=== PATIENT | female | born 1940 | race Caucasian/White ===

== ENCOUNTER → 2016-10-27 | Outpatient (CLI) | payer OTHER ==
[~2016-10-27] MED LIST: /FEXO18TA; /WARF25TA; ACET500C PO; ACET65TA; ALRE0.5S OU; ATOR1TAB19 PO; ATOR40TA PO; BIOT50004 PO; BIOTCAP PO; BUSP1TAB PO; CALC600T10; CALC600T7 PO; CINN500T PO; ESTR62CR PV; FISH1000; FLON0.05; FLON0.054; GABA-279 PO; GARL10CA2 PO; GLUCTAB6 PO; LANS30CA PO; LEVO25TA5 PO; LEVO25TABR; LUTECAP3 PO; MAGN250T9 PO; MELOPOW; MOBI7.5T10 PO; MULTIVIT; NEXI40CA PO; PERC5TAB8; PRAV40TA; PRIL20CA; SERT25TA85 PO; SYST1SOL OU; VITA100041 PO; VITAMIN D50000 UNT; VOLT1GEL24 TD
--- NOTE | 2016-10-28 01:26 | ECWPNPC ---
PATIENT NAME: KAMALA REEDER : 1940 GENDER: FEMALE VISIT DATE: 10/27/2016 DISCHARGE DATE: 10/27/16 1149 VISIT LOCKED DATE TIME: PHYSICIAN: KAYLYNN ELDRIDGE RESOURCE: KAYLYNN ELDRIDGE REASON FOR APPOINTMENT 1. BACK-POST PROCEDURE HISTORY OF PRESENT ILLNESS HISTORY OF PRESENT ILLNESS: PAIN THE PATIENT DESCRIBES THE PAIN... FALL RISK SCREENING: SCREENING :NO FALLS IN THE PAST YEAR TODAY'S VISIT: NOTES: S/P TPI 09/29/16 WITH EXCELLANT RELIEF OF PAINFOR FIRST FEW WEEKS.REPORTS TENDERNESS OVER BASE OF NECK AND ACROSS THE SACRUM. RATES PAIN LEVEL TODAY 0-3/10 WITH SOME ACHINESS RETURNING PARTICULARLY IN THE KNEES AND ANKLES. HAS BEEN ABLE TO GO ABOUT ACTIVITIES OF DAILY LIVING.. CURRENT MEDICATIONS TAKING CINNAMON 500 MG CAPSULE 1 CAP ORALLY DAILY TAKING GLUCOSAMINE CHONDR 500 COMPLEX CAPSULE 1 CAP ORALLY TWICE A DAY TAKING SYSTANE 0.4-0.3 % SOLUTION 1 DROP INTO AFFECTED EYE NEEDED OPHTHALMIC 2-3 TIMES DAILY TAKING LUTEIN 6 MG CAPSULE 1 CAPSULE WITH A MEAL ORALLY ONCE A DAY TAKING CORTISPORIN OTIC 1%-0.35%-1000 UNITS/ML SUSPENSION 2-5 DROPS INTO RIGHT EAR TWICE A DAY NEEDED, NOTES: NONE RECENTLY TAKING TYLENOL ARTHRITIS PAIN 650 MG TABLET EXTENDED RELEASE 1 TABLETS NEEDED ORALLY EVERY 8 HRS TAKING GABAPENTIN 100 MG CAPSULE 2 CAPSULES ORALLY THREE TIMES PER DAY TAKING SYNTHROID 25 MCG TABLET 1 TABLET EVERY MORNING ON AN EMPTY STOMACH ORALLY ONCE A DAY TAKING ATORVASTATIN CALCIUM 10 MG TABLET 1 TABLET ORALLY ONCE A DAY TAKING SERTRALINE HCL 50 MG TABLET 1 TABLET ORALLY ONCE A DAY TAKING JENIFER 180 MG TABLET 1 TABLET ORALLY ONCE A DAY NEEDED TAKING FLONASE 50 MCG/ACT SUSPENSION 1-2 SPRAYS IN EACH NOSTRIL NASALLY ONCE A DAY TAKING NEXIUM 40 MG CAPSULE DELAYED RELEASE 1 CAPSULE ORALLY LA ONCE A DAY, NOTES: 09/29/16 0700 TAKING CALCIUM 600 + D 600-400 MG-UNIT TABLET 1 TABLET ORALLY BID, NOTES: 09/28/16 1700 TAKING VITAMIN D 1000 UNIT TABLET 1 TABLET ORALLY ONCE A DAY, NOTES: 09/28/16 0900 TAKING VOLTAREN 1 % GEL 4GM EXTERNALLY Q8H PRN TO LOW BACK, NOTES: PAIN CLINIC 09/28/16 UNSURE OF TIME NOT-TAKING ALREX 0.2 % SUSPENSION 1 DROP INTO AFFECTED EYE OPHTHALMIC DAILY NOT-TAKING ALBUTEROL SULFATE HFA 108 (90 BASE) MCG/ACT AEROSOL SOLUTION 2 PUFFS NEEDED INHALATION EVERY 4 HRS, NOTES: NONE RECENTLY NOT-TAKING GARLIC 300 MG TABLET 1 TAB ORALLY DAILY NOT-TAKING OMEGA 3 1000 MG CAPSULE 1 CAP ORALLY ONCE DAILY NOT-TAKING ACETAMINOPHEN 500 MG CAPSULE 2 CAPSULES ORALLY EVERY 8 HRS NEEDED FOR PAIN MDD 6 CAPS NOT-TAKING SALINE NASAL SPRAY 0.65 % SOLUTION 2 SPRAYS IN EACH NOSTRIL NEEDED NASALLY EVERY 4 HRS NEEDED MEDICATION LIST REVIEWED AND RECONCILED WITH THE PATIENT PAST MEDICAL HISTORY HYPOTHYROIDISM HYPERLIPIDEMIA OSTEOARTHRITIS ALLERGIC RHINITIS ESOPHAGEAL REFLUX DRY EYES ANXIETY TINNITUS - EVALUATED AT AUDIOLOGY AND ENT ALLERGIC RHINITIS OSTEOPENIA - SPINE, DEXA 2011 ALLERGIES N.K.D.A. SOCIAL HISTORY TOBACCO USE ARE YOU A:NONSMOKER LEARNING BARRIERS / SPECIAL NEEDS ORIENTED TO PLAN OF CARE: PATIENT, PAIN MANAGEMENT PATIENT, ORIENTED TO PLAN OF CARE: PATIENT, PAIN MANAGEMENT PATIENT. NEW PATIENT PAIN DIARY TODAY'S VISITNOTES FROM 0-10, WHAT LEVEL IS YOUR PAIN TODAY?0 PAIN CLINIC PFS, CLERGY, PUBLIC HEALTH REFERRALS PFS REFERRAL NEEDED?NO CLERGY REFERRAL NEEDED?NO PUBLIC HEALTH REFERRAL NEEDED?NO WAS THE PROVIDER NOTIFIED OF ANY PERTINENT INFO?NO PFS REFERRAL NEEDED?NO CLERGY REFERRAL NEEDED?NO PUBLIC HEALTH REFERRAL NEEDED?NO WAS THE PROVIDER NOTIFIED OF ANY PERTINENT INFO?NO REVIEW OF SYSTEMS CONSTITUTIONAL: ANY CHANGE IN YOUR MEDICAL CONDITION? NO . CHILLS NO . FEVER NO . INFECTION: DO YOU HAVE NEW INFECTIONS? NO . DO YOU HAVE HISTORY OF MRSA? NO . MUSCULOSKELETAL: ANY NEW PATTERNS OF PAIN OR NUMBNESS? NO . GASTROENTEROLOGY: ANY NEW CHANGE IN BOWEL CONTROL? NO . GENITOURINARY: ANY NEW CHANGE IN BLADDER CONTROL? NO . IS THERE A CHANCE YOU COULD BE ? NO . HEMATOLOGY/LYMPH: DO YOU TAKE ANY BLOOD THINNERS? (FOR EXAMPLE- COUMADIN, PLAVIX, AGGRENOX, PLATEL, PRADAXA, OR XARELTO) NO . WHEN WAS YOUR LAST DOSE? DATE: TIME: . NEUROLOGY: HAVE YOU FALLEN IN THE PAST 6 MONTHS? NO . ANY NEW EXTREMITY NUMBNESS OR WEAKNESS? NO . CARDIOLOGY: DO YOU HAVE A PACEMAKER OR DEFIBRILLATOR? NO . RESPIRATORY: SLEEP APNEA PRONOUNCED SNORING. . HAVE YOU BEEN SICK IN THE PAST WEEK? NO . FEVER NO . FLU LIKE SYMPTOMS? NO . COUGH DRY NONPRODUCTIVE COUGH . INTEGUMENTARY: DO YOU HAVE ANY RASHES OR OPEN SORES? NO . ALLERGIC/IMMUNO: ARE YOU ALLERGIC TO SHELLFISH OR IV DYE? NO . ANY NEW ALLERGIES? NO . PSYCHIATRIC: DO YOU HAVE THOUGHTS OF HURTING YOURSELF OR SOMEONE ELSE? NO . ARE YOU ABUSED, NEGLECTED, OR IN AN UNSAFE ENVIRONMENT? NO . ENDOCRINOLOGY: ARE YOU DIABETIC? NO . OTHER: DO YOU NEED ANY PRESCRIPTIONS? YES GABEPENTIN . IF YES, PLEASE LIST: ____ . ANY NEW PROBLEMS WITH YOUR MEDICATIONS? NO . WHEN DID YOU LAST EAT? ____ . WHEN DID YOU LAST DRINK? ____ . WHAT DID YOU LAST DRINK? ____ . NAME OF PERSON DRIVING YOU HOME? ____ . DO YOU HAVE ANY OTHER QUESTIONS OR CONCERNS NO . REVIEWED BY: PROVIDER: KAYLYNN REES . VITAL SIGNS WT 162 LBS, HT 62 1/4, BMI 29.39 INDEX, BP 151/81 MM HG, HR 72 /MIN, RR 16 /MIN, TEMP 97.9 F, OXYGEN SAT % 99%, NA INITIALS SC 11:16. EXAMINATION GENERAL EXAMINATION: PSYCHALERT , ORIENTED X 3 , APPROPRIATE MOOD AND AFFECT . LUNGS:CLEAR TO AUSCULTATION BILATERALLY. HEART:HEART RATE REGULAR. MUSCULOSKELETAL:POINT TENDERNESS OVER LUMBOSACRAL AXIS. , MILD TENDERNESS OVER LUMBAR PARAVERETRAL MUSCLES. TENDER WITH PALPATION OVER BILATERAL SACRAL ILIAC JOINTS. , TRIGGER POINTS:, ELICITED WITH PALPATION OVER LUMBAR PARAVERTEBRAL MUSCLES AND INTO THE SACRUM. WELL ACROSS THE TRAPEZIUS MUSCLES BILATERALLY. RESTRICTION OF ROM IN THESE AREAS. . ASSESSMENTS MYALGIA - M79.1 (PRIMARY) LUMBAR FACET ARTHROPATHY - M46.96 GENERALIZED OSTEOARTHROSIS, INVOLVING MULTIPLE SITES - M15.9 TREATMENT MYALGIA REFILL GABAPENTIN CAPSULE, 100 MG, 2 CAPSULES, ORALLY, THREE TIMES PER DAY, 30 DAY(S), 180, REFILLS 2 TRIGGER POINT 3 + KAYLYNN HAMMER 10/27/2016 11:39:41 AM > NECK /LOW BACK NOTES: COUNTINUE EXERCISES AND STRETCHES. TALK TO PRIMARY DOC ABOUT SNORING. CLINICAL NOTES: FALLS CARE PLAN: 1. RECOMMEND REMOVING ALL THROW RUGS. 2. RECOMMEND NIGHT LIGHTS 3. RECOMMEND WEARING RUBBER SOLED SHOES AND TO NOT GO BAREFOOT. 4.. ADVISED TO CHANGE POSITION SLOWLY FROM SUPINE TO STANDING TO AVOID DIZZINESS. PREVENTIVE MEDICINE PAIN CLINIC TEACHING: PROCEDURE TEACHING REVIEWDD PROCEDURE TEACHING WITH PT WHO VERBALIZED UNDERSTNADING. PROCEDURE CODES FA211 ESTABILISHED PATIENT [facility] CHARGE G8783 BP SCR PRFRM RCMDD DEFIND SCR INTVL 3016F PT SCRND UNHLTHY [place] USE 1123F ACP DISCUSS/DSCN MKR DOCD 1036F TOBACCO NON-USER 0518F FALL PLAN OF CARE DOCD G8427 DOC MEDS VERIFIED W/PT OR RE G8420 BMI<30 AND >=22 CALC & DOCU 3288F FALL RISK ASSESSMENT DOCD FOLLOW UP TRIGGER POINTS IN NOVEMBER ELECTRONICALLY SIGNED BY NATI GARBER ON 10/27/2016 AT 12:49 PM EST DISCLAIMER : THIS IS A VISIT SUMMARY EXTRACTED FROM THE [employer] CHART. IT IS NOT A COPY OF THE [employer] PROGRESS NOTE. MTDD
== END ==
LOC: M PAIN 11:00
PROVIDERS: ATTEND Nurse Practitioner Family
DX: Z09 Encounter for follow-up examination after completed treatment for conditions other than malignant neoplasm (principal); M79.1 Myalgia; M46.96 Unspecified inflammatory spondylopathy, lumbar region; M15.9 Polyosteoarthritis, unspecified; E03.9 Hypothyroidism, unspecified; I10 Essential (primary) hypertension; J30.89 Other allergic rhinitis; K21.9 Gastro-esophageal reflux disease without esophagitis; F41.9 Anxiety disorder, unspecified; H93.19 Tinnitus, unspecified ear; M85.80 Other specified disorders of bone density and structure, unspecified site; Z79.899 Other long term (current) drug therapy

== ENCOUNTER → 2016-12-02 | Outpatient (CLI) | payer OTHER ==
[~2016-12-02] MED LIST changes: +BUPIVACAINE HCL 0.25% 10 ML VIAL As Ordered ONE; +BUPIVACAINE HCL 0.25% 30 ML VIAL As Ordered ONE; +TRIAMCINOLONE ACETONIDE SUSP 40 MG/ML VIAL (J3301) As Ordered ONE
--- NOTE | 2016-12-04 23:58 | ECWPNPC ---
PATIENT NAME: KAMALA REEDER : 1940 GENDER: FEMALE VISIT DATE: 12/02/2016 DISCHARGE DATE: 12/02/16 1517 VISIT LOCKED DATE TIME: PHYSICIAN: SHAKEEL PAMRAR RESOURCE: SHAKEEL PARMAR REASON FOR APPOINTMENT 1. TPI-NECK/LOW BACK HISTORY OF PRESENT ILLNESS HISTORY OF PRESENT ILLNESS: PAIN THE PATIENT DESCRIBES THE PAIN... FALL RISK SCREENING: SCREENING :NO FALLS IN THE PAST YEAR CURRENT MEDICATIONS TAKING CINNAMON 500 MG CAPSULE 1 CAP ORALLY DAILY, NOTES: TAKING GLUCOSAMINE CHONDR 500 COMPLEX CAPSULE 1 CAP ORALLY TWICE A DAY, NOTES: 12/01/16899 TAKING SYSTANE 0.4-0.3 % SOLUTION 1 DROP INTO AFFECTED EYE NEEDED OPHTHALMIC 2-3 TIMES DAILY, NOTES: 12/01/162099 TAKING LUTEIN 6 MG CAPSULE 1 CAPSULE WITH A MEAL ORALLY ONCE A DAY, NOTES: 12/01/16899 TAKING CORTISPORIN OTIC 1%-0.35%-1000 UNITS/ML SUSPENSION 2-5 DROPS INTO RIGHT EAR TWICE A DAY NEEDED, NOTES: 11/30/16 TAKING TYLENOL ARTHRITIS PAIN 650 MG TABLET EXTENDED RELEASE 1 TABLETS NEEDED ORALLY EVERY 8 HRS, NOTES: NONE RECENT TAKING ATORVASTATIN CALCIUM 10 MG TABLET 1 TABLET ORALLY ONCE A DAY, NOTES: 12/01/162199 TAKING JENIFER 180 MG TABLET 1 TABLET ORALLY ONCE A DAY NEEDED, NOTES: NONE RECENT TAKING FLONASE 50 MCG/ACT SUSPENSION 1-2 SPRAYS IN EACH NOSTRIL NASALLY ONCE A DAY, NOTES: 12/01/16799 TAKING NEXIUM 40 MG CAPSULE DELAYED RELEASE 1 CAPSULE ORALLY LA ONCE A DAY, NOTES: 12/01/16899 TAKING CALCIUM 600 + D 600-400 MG-UNIT TABLET 1 TABLET ORALLY BID, NOTES: 12/01/16899 TAKING VITAMIN D 1000 UNIT TABLET 1 TABLET ORALLY ONCE A DAY, NOTES: 12/01/16899 TAKING VOLTAREN 1 % GEL 4GM EXTERNALLY Q8H PRN TO LOW BACK, NOTES: 12/01/162129 TAKING GABAPENTIN 100 MG CAPSULE 2 CAPSULES ORALLY THREE TIMES PER DAY, NOTES: 12/02/16 0730 TAKING SERTRALINE HCL 50 MG TABLET 1 TABLET ORALLY ONCE A DAY, NOTES: 12/01/162129 TAKING SYNTHROID 25 MCG TABLET 1 TABLET EVERY MORNING ON AN EMPTY STOMACH ORALLY ONCE A DAY, NOTES: 12/02/16 0730 NOT-TAKING ALREX 0.2 % SUSPENSION 1 DROP INTO AFFECTED EYE OPHTHALMIC DAILY NOT-TAKING ALBUTEROL SULFATE HFA 108 (90 BASE) MCG/ACT AEROSOL SOLUTION 2 PUFFS NEEDED INHALATION EVERY 4 HRS, NOTES: NONE RECENTLY NOT-TAKING GARLIC 300 MG TABLET 1 TAB ORALLY DAILY NOT-TAKING OMEGA 3 1000 MG CAPSULE 1 CAP ORALLY ONCE DAILY NOT-TAKING ACETAMINOPHEN 500 MG CAPSULE 2 CAPSULES ORALLY EVERY 8 HRS NEEDED FOR PAIN MDD 6 CAPS NOT-TAKING SALINE NASAL SPRAY 0.65 % SOLUTION 2 SPRAYS IN EACH NOSTRIL NEEDED NASALLY EVERY 4 HRS NEEDED MEDICATION LIST REVIEWED AND RECONCILED WITH THE PATIENT PAST MEDICAL HISTORY HYPOTHYROIDISM HYPERLIPIDEMIA OSTEOARTHRITIS ALLERGIC RHINITIS ESOPHAGEAL REFLUX DRY EYES ANXIETY TINNITUS - EVALUATED AT AUDIOLOGY AND ENT ALLERGIC RHINITIS OSTEOPENIA - SPINE, DEXA 2010 ALLERGIES ENVIRONMENTAL: SINUS CONGESTION: ALLERGY SURGICAL HISTORY CYST REMOVAL - SHOULDER RIGHT HIP REPLACEMENT 04/03 EGD - HH, BX W/INFLAMMATIONVINCE 2008 COLONOSCOPY - DIVERTICULOSIS, INTERNAL HEMORRHOIDS, VINCE 2008 SOCIAL HISTORY GENERAL: TOBACCO USE ARE YOU A:NONSMOKER LEARNING BARRIERS / SPECIAL NEEDS ORIENTED TO PLAN OF CARE: PATIENT, PAIN MANAGEMENT PATIENT, ORIENTED TO PLAN OF CARE: PATIENT, PAIN MANAGEMENT PATIENT. NEW PATIENT PAIN DIARY TODAY'S VISITNOTES FROM 0-10, WHAT LEVEL IS YOUR PAIN TODAY?0 PAIN CLINIC PFS, CLERGY, PUBLIC HEALTH REFERRALS PFS REFERRAL NEEDED?NO CLERGY REFERRAL NEEDED?NO PUBLIC HEALTH REFERRAL NEEDED?NO WAS THE PROVIDER NOTIFIED OF ANY PERTINENT INFO?NO PFS REFERRAL NEEDED?NO CLERGY REFERRAL NEEDED?NO PUBLIC HEALTH REFERRAL NEEDED?NO WAS THE PROVIDER NOTIFIED OF ANY PERTINENT INFO?NO HOSPITALIZATION/MAJOR DIAGNOSTIC PROCEDURE SURGERIES REVIEW OF SYSTEMS CONSTITUTIONAL: ANY CHANGE IN YOUR MEDICAL CONDITION? NO . CHILLS NO . FEVER NO . INFECTION: DO YOU HAVE NEW INFECTIONS? NO . DO YOU HAVE HISTORY OF MRSA? NO . MUSCULOSKELETAL: ANY NEW PATTERNS OF PAIN OR NUMBNESS? YES, 3RD AND 4TH DIGITS RIGHT HAND NUMB . GASTROENTEROLOGY: ANY NEW CHANGE IN BOWEL CONTROL? NO . GENITOURINARY: ANY NEW CHANGE IN BLADDER CONTROL? NO . IS THERE A CHANCE YOU COULD BE ? NO . HEMATOLOGY/LYMPH: DO YOU TAKE ANY BLOOD THINNERS? (FOR EXAMPLE- COUMADIN, PLAVIX, AGGRENOX, PLATEL, PRADAXA, OR XARELTO) NO . WHEN WAS YOUR LAST DOSE? DATE: TIME: . NEUROLOGY: HAVE YOU FALLEN IN THE PAST 6 MONTHS? YES, EARLY IN THE FALL, NO INJURY . ANY NEW EXTREMITY NUMBNESS OR WEAKNESS? NO . CARDIOLOGY: DO YOU HAVE A PACEMAKER OR DEFIBRILLATOR? NO . RESPIRATORY: HAVE YOU BEEN SICK IN THE PAST WEEK? NO . FEVER NO . FLU LIKE SYMPTOMS? NO . COUGH NO . INTEGUMENTARY: DO YOU HAVE ANY RASHES OR OPEN SORES? NO . ALLERGIC/IMMUNO: ARE YOU ALLERGIC TO SHELLFISH OR IV DYE? NO . ANY NEW ALLERGIES? NO . PSYCHIATRIC: DO YOU HAVE THOUGHTS OF HURTING YOURSELF OR SOMEONE ELSE? NO . ARE YOU ABUSED, NEGLECTED, OR IN AN UNSAFE ENVIRONMENT? NO . ENDOCRINOLOGY: ARE YOU DIABETIC? NO . OTHER: DO YOU NEED ANY PRESCRIPTIONS? NO . IF YES, PLEASE LIST: ____ . ANY NEW PROBLEMS WITH YOUR MEDICATIONS? NO . WHEN DID YOU LAST EAT? ____12/02/16 0730 . WHEN DID YOU LAST DRINK? ____12/02/16 1000 . WHAT DID YOU LAST DRINK? ____APPLE JUICE . NAME OF PERSON DRIVING YOU HOME? ____HUSBAND QUYNH . DO YOU HAVE ANY OTHER QUESTIONS OR CONCERNS NO . REVIEWED BY: PROVIDER: . VITAL SIGNS WT 165.8 LBS, HT 62 1/4, BMI 30.08 INDEX, BP 154/72 MM HG, HR 71 /MIN, RR 16 /MIN, TEMP 97.5 F, OXYGEN SAT % 96%, NA INITIALS SC 13:53. ASSESSMENTS MYALGIA - M79.1 (PRIMARY) PROCEDURES PN TRIGGER POINT INJECTION WITH STEROIDS PRE PROCEDURE DIAGNOSIS 1. MYALGIA 2. PAIN AT BILATERAL NECK AREA AND BILATERAL LOWER BACK AREA POST PROCEDURE DIAGNOSIS 1. MYALGIA 2. PAIN AT BILATERAL NECK AREA AND BILATERAL LOWER BACK AREA PROCEDURE TRIGGER POINT INJECTION AT BILATERAL NECK AREA AND BILATERAL LOWER BACK AREA SURGEON DR. SHAKEEL PARMAR COLLAR SETTER NONE ANESTHESIA LOCAL PRE PROCEDURE NOTE THE PATIENT HAS A HISTORY OF CHRONIC PAIN AT THE RIGHT AND LEFT NECK AREA AND RIGHT AND LEFT LOWER BACK AREA. I EVALUATE THE PATIENT AND REVIEWED THE CHART. THERE IS EVIDENCE OF BANDS OF TISSUE WITH RESTRICTION OF MOVEMENT AND PRESENCE OF TRIGGER POINT AT THE AFFECTED AREA. I WENT OVER THE RISKS, ALTERNATIVES, AND BENEFITS ASSOCIATED WITH THIS PROCEDURE. THE PATIENT WOULD LIKE TO PROCEED AND GIVE CONSENT TO PERFORMED THE PROCEDURE. THE PATIENT DENIES UNEXPLAINABLE WEIGHT LOSS, FEVER, CHILLS, OR NEW CHANGES IN URINARY OR BOWEL CONTROL DESCRIPTION OF PROCEDURE THE PATIENT WAS BROUGHT TO THE PROCEDURE ROOM AND PLACED IN THE SITTING POSITION. THE AREA WAS CLEANED WITH ALCOHOL. THE PROCEDURE WAS DONE USING ASEPTIC STERILE TECHNIQUE. I CHECKED LATERALITY AND THE LEVEL WHERE THE PROCEDURE WAS GOING TO BE PERFORMED WITH THE PATIENT AND THE SUPPORTING STAFF AT THE MOMENT OF THE TIME OUT IN THE PROCEDURE ROOM. USING A 25-GAUGE NEEDLE, TRIGGER POINTS WERE INJECTED AT THE RIGHT AND LEFT NECK AREA AND RIGHT AND LEFT LOWER BACK AREA WITH A TOTAL OF 40 ML OF BUPIVACAINE 0.25% AND KENALOG 40 MG. THERE WAS NO EVIDENCE OF BLOOD, PARESTHESIA OR CEREBROSPINAL FLUID DURING THE PROCEDURE. THE PATIENT WAS SENT TO THE RECOVERY ROOM. THE PATIENT WAS MOVING THE EXTREMITIES AND DOING WELL. THERE WAS NO COMPLICATION DURING THE PROCEDURE POST PROCEDURE NOTE THE PATIENT WILL BE SEEN IN A FOLLOW UP IN THE NEXT FEW WEEKS. INSTRUCTIONS WERE GIVEN, QUESTIONS WERE ANSWERED, AND THE PATIENT EXPRESSED UNDERSTANDING AND AGREES WITH THE PLAN. I, GILMER MCCOY, DOCUMENTED THE ABOVE INFORMATION ACTING A SCRIBE FOR DR. PARMAR. I, DR. PARMAR, HAVE REVIEWED THE ABOVE DOCUMENT, SCRIBED BY GILMER MCCOY, AND I VERIFY THAT IT IS ACCURATE PROCEDURE CODES 44617 INJECT TRIGGER POINTS 3/> FOLLOW UP 3 WEEKS ELECTRONICALLY SIGNED BY SHAKEEL PARMAR MD ON 12/04/2016 AT 01:39 PM EST DISCLAIMER : THIS IS A VISIT SUMMARY EXTRACTED FROM THE [employer] CHART. IT IS NOT A COPY OF THE [employer] PROGRESS NOTE. JEREMIAH
== END ==
LOC: M PAIN 14:20
PROVIDERS: ATTEND Anesthesiology
DX: G89.29 Other chronic pain (principal); M79.1 Myalgia; M54.2 Cervicalgia; M54.5 Low back pain; E03.9 Hypothyroidism, unspecified; E78.5 Hyperlipidemia, unspecified; M19.90 Unspecified osteoarthritis, unspecified site; K21.9 Gastro-esophageal reflux disease without esophagitis; F41.9 Anxiety disorder, unspecified; M85.80 Other specified disorders of bone density and structure, unspecified site; J30.89 Other allergic rhinitis; Z79.899 Other long term (current) drug therapy
CPT/HCPCS: 20553; J3301

== ENCOUNTER → 2016-12-28 | Outpatient (CLI) | payer OTHER ==
[~2016-12-28] MED LIST changes: -BUPIVACAINE HCL 0.25% 10 ML VIAL As Ordered ONE; -BUPIVACAINE HCL 0.25% 30 ML VIAL As Ordered ONE; +SERT25TA PO; -SERT25TA85 PO; -TRIAMCINOLONE ACETONIDE SUSP 40 MG/ML VIAL (J3301) As Ordered ONE
--- NOTE | 2016-12-29 01:14 | ECWPNPC ---
PATIENT NAME: KAMALA REEDER : 1940 GENDER: FEMALE VISIT DATE: 12/28/2016 DISCHARGE DATE: 12/28/16 1138 VISIT LOCKED DATE TIME: PHYSICIAN: KAYLYNN ELDRIDGE RESOURCE: KAYLYNN ELDRIDGE REASON FOR APPOINTMENT 1. POST TPI HISTORY OF PRESENT ILLNESS HISTORY OF PRESENT ILLNESS: PAIN THE PATIENT DESCRIBES THE PAIN... FALL RISK SCREENING: SCREENING :NO FALLS IN THE PAST YEAR TODAY'S VISIT: NOTES: S/P TPI 12/02/16. NOTES VERY GOOD RESULTS FOR ABOUT 10 DAYS AND THEN PAIN BEGAB TO RETURN. RATES PAIN TODAY 5/10. DESCRIBES PAIN ACHING, SHARP, STABBING, AND SORE. PAIN IS CENTERD AT BACK OF NECK, AND ACROSS THE LOW BACKFEELS IF PAIN IS RADIATING UP THE BACK OF HEAD - STEADY OVER THE LAST WEEK AND ACROSS LEFT SHOULDER. DOES LIMIT MOTION IN SHOULDER. IS USING HEAD PACK - HARD TO SLEEP WITH PAIN. SOME N/T IN LEFT HAND. SAME SENSATION ON RIGHT HAS GONE. . CURRENT MEDICATIONS TAKING CINNAMON 500 MG CAPSULE 1 CAP ORALLY DAILY, NOTES: TAKING GLUCOSAMINE CHONDR 500 COMPLEX CAPSULE 1 CAP ORALLY TWICE A DAY, NOTES: 12/01/16 09 TAKING SYSTANE 0.4-0.3 % SOLUTION 1 DROP INTO AFFECTED EYE NEEDED OPHTHALMIC 2-3 TIMES DAILY, NOTES: 12/01/16 2100 TAKING LUTEIN 6 MG CAPSULE 1 CAPSULE WITH A MEAL ORALLY ONCE A DAY, NOTES: 12/01/16 09 TAKING CORTISPORIN OTIC 1%-0.35%-1000 UNITS/ML SUSPENSION 2-5 DROPS INTO RIGHT EAR TWICE A DAY NEEDED, NOTES: 11/30/16 TAKING TYLENOL ARTHRITIS PAIN 650 MG TABLET EXTENDED RELEASE 1 TABLETS NEEDED ORALLY EVERY 8 HRS, NOTES: NONE RECENT TAKING ATORVASTATIN CALCIUM 10 MG TABLET 1 TABLET ORALLY ONCE A DAY, NOTES: 12/01/16 220 TAKING JENIFER 180 MG TABLET 1 TABLET ORALLY ONCE A DAY NEEDED, NOTES: NONE RECENT TAKING FLONASE 50 MCG/ACT SUSPENSION 1-2 SPRAYS IN EACH NOSTRIL NASALLY ONCE A DAY, NOTES: 12/01/16 0800 TAKING NEXIUM 40 MG CAPSULE DELAYED RELEASE 1 CAPSULE ORALLY LA ONCE A DAY, NOTES: 12/01/16 09 TAKING CALCIUM 600 + D 600-400 MG-UNIT TABLET 1 TABLET ORALLY BID, NOTES: 12/01/16899 TAKING VITAMIN D 1000 UNIT TABLET 1 TABLET ORALLY ONCE A DAY, NOTES: 12/01/16899 TAKING VOLTAREN 1 % GEL 4GM EXTERNALLY Q8H PRN TO LOW BACK, NOTES: 12/01/162129 TAKING GABAPENTIN 100 MG CAPSULE 2 CAPSULES ORALLY THREE TIMES PER DAY, NOTES: 12/02/16729 TAKING SERTRALINE HCL 50 MG TABLET 1 TABLET ORALLY ONCE A DAY, NOTES: 12/01/162129 TAKING SYNTHROID 25 MCG TABLET 1 TABLET EVERY MORNING ON AN EMPTY STOMACH ORALLY ONCE A DAY, NOTES: 12/02/16729 NOT-TAKING ALREX 0.2 % SUSPENSION 1 DROP INTO AFFECTED EYE OPHTHALMIC DAILY NOT-TAKING ALBUTEROL SULFATE HFA 108 (90 BASE) MCG/ACT AEROSOL SOLUTION 2 PUFFS NEEDED INHALATION EVERY 4 HRS, NOTES: NONE RECENTLY NOT-TAKING GARLIC 300 MG TABLET 1 TAB ORALLY DAILY NOT-TAKING OMEGA 3 1000 MG CAPSULE 1 CAP ORALLY ONCE DAILY NOT-TAKING ACETAMINOPHEN 500 MG CAPSULE 2 CAPSULES ORALLY EVERY 8 HRS NEEDED FOR PAIN MDD 6 CAPS NOT-TAKING SALINE NASAL SPRAY 0.65 % SOLUTION 2 SPRAYS IN EACH NOSTRIL NEEDED NASALLY EVERY 4 HRS NEEDED MEDICATION LIST REVIEWED AND RECONCILED WITH THE PATIENT PAST MEDICAL HISTORY HYPOTHYROIDISM HYPERLIPIDEMIA OSTEOARTHRITIS ALLERGIC RHINITIS ESOPHAGEAL REFLUX DRY EYES ANXIETY TINNITUS - EVALUATED AT AUDIOLOGY AND ENT ALLERGIC RHINITIS OSTEOPENIA - SPINE, DEXA 2010 ALLERGIES ENVIRONMENTAL: SINUS CONGESTION: ALLERGY SOCIAL HISTORY GENERAL: TOBACCO USE ARE YOU A:NONSMOKER LEARNING BARRIERS / SPECIAL NEEDS ORIENTED TO PLAN OF CARE: PATIENT, PAIN MANAGEMENT PATIENT, ORIENTED TO PLAN OF CARE: PATIENT, PAIN MANAGEMENT PATIENT. NEW PATIENT PAIN DIARY TODAY'S VISITNOTES FROM 0-10, WHAT LEVEL IS YOUR PAIN TODAY?0 PAIN CLINIC PFS, CLERGY, PUBLIC HEALTH REFERRALS PFS REFERRAL NEEDED?NO CLERGY REFERRAL NEEDED?NO PUBLIC HEALTH REFERRAL NEEDED?NO WAS THE PROVIDER NOTIFIED OF ANY PERTINENT INFO?NO PFS REFERRAL NEEDED?NO CLERGY REFERRAL NEEDED?NO PUBLIC HEALTH REFERRAL NEEDED?NO WAS THE PROVIDER NOTIFIED OF ANY PERTINENT INFO?NO REVIEW OF SYSTEMS CONSTITUTIONAL: ANY CHANGE IN YOUR MEDICAL CONDITION? NO . CHILLS NO . FEVER NO . INFECTION: DO YOU HAVE NEW INFECTIONS? NO . DO YOU HAVE HISTORY OF MRSA? NO . MUSCULOSKELETAL: ANY NEW PATTERNS OF PAIN OR NUMBNESS? YES PT HAD TPI BILATERAL CERVICAL, BILATERAL LOW BACK, REPORTS GOOD PAIN RELIEF FOR ONLY 10 DAYS. NOW REPORTS PAIN IN LOW BACK AND NECK IS BACK TO PRE-PROCEDURE LEVEL. . GASTROENTEROLOGY: ANY NEW CHANGE IN BOWEL CONTROL? NO . GENITOURINARY: ANY NEW CHANGE IN BLADDER CONTROL? NO . IS THERE A CHANCE YOU COULD BE ? NO . HEMATOLOGY/LYMPH: DO YOU TAKE ANY BLOOD THINNERS? (FOR EXAMPLE- COUMADIN, PLAVIX, AGGRENOX, PLATEL, PRADAXA, OR XARELTO) NO . WHEN WAS YOUR LAST DOSE? DATE: TIME: . NEUROLOGY: HAVE YOU FALLEN IN THE PAST 6 MONTHS? NO . ANY NEW EXTREMITY NUMBNESS OR WEAKNESS? NO . CARDIOLOGY: DO YOU HAVE A PACEMAKER OR DEFIBRILLATOR? NO . RESPIRATORY: HAVE YOU BEEN SICK IN THE PAST WEEK? NO . FEVER NO . FLU LIKE SYMPTOMS? NO . COUGH NO . INTEGUMENTARY: DO YOU HAVE ANY RASHES OR OPEN SORES? NO . ALLERGIC/IMMUNO: ARE YOU ALLERGIC TO SHELLFISH OR IV DYE? NO . ANY NEW ALLERGIES? NO . PSYCHIATRIC: DO YOU HAVE THOUGHTS OF HURTING YOURSELF OR SOMEONE ELSE? NO . ARE YOU ABUSED, NEGLECTED, OR IN AN UNSAFE ENVIRONMENT? NO . ENDOCRINOLOGY: ARE YOU DIABETIC? NO . OTHER: DO YOU NEED ANY PRESCRIPTIONS? NO . IF YES, PLEASE LIST: ____ . ANY NEW PROBLEMS WITH YOUR MEDICATIONS? NO . WHEN DID YOU LAST EAT? ____ . WHEN DID YOU LAST DRINK? ____ . WHAT DID YOU LAST DRINK? ____ . NAME OF PERSON DRIVING YOU HOME? ____ . DO YOU HAVE ANY OTHER QUESTIONS OR CONCERNS NO . REVIEWED BY: PROVIDER: KAYLYNN REES . VITAL SIGNS WT 164.6 LBS, HT 62 1/4, BMI 29.86 INDEX, BP 147/70 MM HG, HR 82 /MIN, RR 16 /MIN, TEMP 97.4 F, OXYGEN SAT % 97%, SAFE IN ENV? (Y/N) YES, NA INITIALS ME 11:07, REVIEWED BY: DONY. EXAMINATION GENERAL EXAMINATION: PSYCHALERT , ORIENTED X 3 , APPROPRIATE MOOD AND AFFECT . LUNGS:CLEAR TO AUSCULTATION BILATERALLY. HEART:HEART RATE REGULAR. MUSCULOSKELETAL:POINT TENDERNESS OVER LUMBOSACRAL AXIS. , MILD TENDERNESS OVER LUMBAR PARAVERETRAL MUSCLES. TENDER WITH PALPATION OVER BILATERAL SACRAL ILIAC JOINTS. , FEW TRIGGER POINTS:, ELICITED WITH PALPATION OVER LUMBAR PARAVERTEBRAL MUSCLES AND INTO THE SACRUM. WELL ACROSS THE TRAPEZIUS MUSCLES BILATERALLY. RESTRICTION OF ROM IN THESE AREAS. . ASSESSMENTS MYALGIA - M79.1 (PRIMARY) TREATMENT MYALGIA NOTES: TENNIS BALL TO PUT PRESSURE TO AREA. OK TO ATTEND CHIROPRACTER. DO SHOULDER ROLLS [address] TWICE A DAY. CONTINUE ICE AND HEAT TO NECK AND LOW BACK. CONTINUE CREAMS TO NECK/LOW BACK. PROCEDURE CODES FA211 ESTABILISHED PATIENT [facility] CHARGE DISPOSITION & COMMUNICATION FOLLOW UP CALL IS APPOINTMENT NEEDED ELECTRONICALLY SIGNED BY NATI GARBER ON 12/28/2016 AT 06:36 PM EST DISCLAIMER : THIS IS A VISIT SUMMARY EXTRACTED FROM THE [employer] CHART. IT IS NOT A COPY OF THE [employer] PROGRESS NOTE. JEREMIAH
== END ==
LOC: M PAIN 10:40
PROVIDERS: ATTEND Nurse Practitioner Family
DX: Z09 Encounter for follow-up examination after completed treatment for conditions other than malignant neoplasm (principal); M79.1 Myalgia; M54.2 Cervicalgia; M54.5 Low back pain; E03.9 Hypothyroidism, unspecified; E78.5 Hyperlipidemia, unspecified; M19.90 Unspecified osteoarthritis, unspecified site; J30.89 Other allergic rhinitis; K21.9 Gastro-esophageal reflux disease without esophagitis; F41.9 Anxiety disorder, unspecified; M85.80 Other specified disorders of bone density and structure, unspecified site; Z79.899 Other long term (current) drug therapy

== ENCOUNTER → 2017-01-25 | Outpatient (CLI) | payer OTHER ==
--- NOTE | 2017-01-27 13:29 | DEXA ---
AP SPINE L1 - L4 1.193 0.0 1.4 LT FEMUR TOTAL 0.962 -0.4 1.1 RT FEMUR TOTAL TOTAL BODY TOTAL OTHER DUAL FEMUR FRAX* ASSESSMENT Risk factors: Rheumatoid arthritis. 10 year probability of fracture Major osteoporotic fracture 11.1 % Hip fracture 1.5 % COMMENTS: Normal bone densitometry of the spine. Normal bone densitometry of the left hip. The density of the spine has increased 9.8% since the initial exam on 2006. The spine density has increased 5.7% since the most recent exam on 02/23/2011. The density of the left hip has decreased 6.7% since the initial exam on 2006. The density of the left hip has decreased 1.5% since the most recent exam on 11/2010. FOLLOW-UP: Recommendation for the next bone density exam: 5 years. CARMEND
== END ==
LOC: M WHC 12:54
PROVIDERS: ATTEND Nurse Practitioner Family
DX: M85.9 Disorder of bone density and structure, unspecified (principal); M15.9 Polyosteoarthritis, unspecified

== ENCOUNTER → 2017-02-16 | Outpatient (REF) | payer OTHER ==
[2017-02-16 12:57] LABS: ALBUMIN 3.7 GM/DL (3.2-5.2); ALBUMIN/GLOBULIN RATIO 1.12 (1.00-1.93); ALKALINE PHOSPHATASE 82 U/L (45-117); ALT/SGPT 30 U/L (12-78); ANION GAP 7 MEQ/L (8-16); AST/SGOT 24 U/L (15-37); BILIRUBIN,TOTAL 0.3 MG/DL (0.2-1.0); BLOOD UREA NITROGEN 19 MG/DL (7-18); CALCIUM LEVEL 8.8 MG/DL (8.8-10.2); CARBON DIOXIDE LEVEL 28 MEQ/L (21-32); CHLORIDE LEVEL 105 MEQ/L (98-107); CHOLESTEROL LEVEL 207 MG/DL (<200); CREATININE FOR GFR 0.69 MG/DL (0.55-1.02); FREE T4 0.86 NG/DL (0.76-1.46); GLOMERULAR FILTRATION RATE > 60.0 (>39); GLUCOSE, FASTING 96 MG/DL (83-110); SODIUM LEVEL 140 MEQ/L (136-145); TRIGLYCERIDES LEVEL 213 MG/DL (<150)
== END ==
LOC: M SFHCPLAZ 08:52
PROVIDERS: ATTEND Nurse Practitioner Family
DX: E78.2 Mixed hyperlipidemia (principal); E03.9 Hypothyroidism, unspecified

== ENCOUNTER → 2018-02-17 | Outpatient (REF) | payer OTHER ==
[2018-02-17 13:35] LABS: ALBUMIN 4.1 GM/DL (3.2-5.2); ALBUMIN/GLOBULIN RATIO 1.11 (1.00-1.93); ALKALINE PHOSPHATASE 92 U/L (45-117); ALT/SGPT 24 U/L (12-78); ANION GAP 7 MEQ/L (8-16); AST/SGOT 23 U/L (7-37); BILIRUBIN,TOTAL 0.3 MG/DL (0.2-1.0); BLOOD UREA NITROGEN 14 MG/DL (7-18); CARBON DIOXIDE LEVEL 27 MEQ/L (21-32); CHLORIDE LEVEL 103 MEQ/L (98-107); CREATININE FOR GFR 0.72 MG/DL (0.55-1.30); FREE T4 0.96 NG/DL (0.76-1.46); GLOMERULAR FILTRATION RATE > 60.0 (>39); GLUCOSE, FASTING 89 MG/DL (70-100); POTASSIUM SERUM 4.3 MEQ/L (3.5-5.1); SODIUM LEVEL 137 MEQ/L (136-145); TOTAL PROTEIN 7.8 GM/DL (6.4-8.2)
[2018-02-19 00:07] LABS: Lyme Disease IgG/IgM Antibodie <0.91 ISR (0.00-0.90); Lyme Disease IgM Ab Quantitati <0.80 index (0.00-0.79)
== END ==
LOC: M SFHCADAM 08:28
DX: E78.2 Mixed hyperlipidemia (principal); E03.9 Hypothyroidism, unspecified; E55.9 Vitamin D deficiency, unspecified; W57.XXXD Bitten or stung by nonvenomous insect and other nonvenomous arthropods, subsequent encounter; X58.XXXD Exposure to other specified factors, subsequent encounter; Y92.9 Unspecified place or not applicable; Y93.9 Activity, unspecified; Y99.9 Unspecified external cause status
CPT/HCPCS: 84443

== ENCOUNTER → 2018-08-30 | Outpatient (REF) | payer OTHER ==
[2018-08-30 13:51] LABS: ALBUMIN 3.7 GM/DL (3.2-5.2); ALBUMIN/GLOBULIN RATIO 1.09 (1.00-1.93); ALKALINE PHOSPHATASE 92 U/L (45-117); ALT/SGPT 30 U/L (12-78); ANION GAP 9 MEQ/L (8-16); AST/SGOT 24 U/L (7-37); BILIRUBIN,TOTAL 0.3 MG/DL (0.2-1.0); BLOOD UREA NITROGEN 11 MG/DL (7-18); CALCIUM LEVEL 8.8 MG/DL (8.8-10.2); CARBON DIOXIDE LEVEL 25 MEQ/L (21-32); CHLORIDE LEVEL 102 MEQ/L (98-107); CHOLESTEROL LEVEL 179 MG/DL (<200); CREATININE FOR GFR 0.72 MG/DL (0.55-1.30); FREE T4 0.95 NG/DL (0.76-1.46); GLOMERULAR FILTRATION RATE > 60.0 (>39); GLUCOSE, FASTING 104 MG/DL (70-100); HDL CHOLESTEROL 50 MG/DL (>40); LDL CHOLESTEROL 109 MG/DL (<100); NON-HDL-C 129 MG/DL; POTASSIUM SERUM 4.7 MEQ/L (3.5-5.1); SODIUM LEVEL 136 MEQ/L (136-145); TOTAL 25(OH) VITAMIN D 22.3 NG/ML (30.0-100.0); TOTAL PROTEIN 7.1 GM/DL (6.4-8.2); TRIGLYCERIDES LEVEL 99 MG/DL (<150)
== END ==
LOC: M SFHCADAM 08:32
DX: E78.2 Mixed hyperlipidemia (principal); E03.9 Hypothyroidism, unspecified; E55.9 Vitamin D deficiency, unspecified
CPT/HCPCS: 84443

== ENCOUNTER → 2018-12-21 | Outpatient (CLI) | payer MEDICARE ==
[~2018-12-21] MED LIST changes: -ATOR40TA PO; +ATOR40TA75 PO; +GABA-1171 PO; -GABA-279 PO; +MOBI4TAB PO; -MOBI7.5T10 PO; +VITA-182 PO; -VITA100041 PO; +VOLT1GEL15 TD; -VOLT1GEL24 TD
--- NOTE | 2019-01-05 00:40 | ECWPNPC ---
PATIENT NAME: KAMALA REEDER : 1940 GENDER: FEMALE VISIT DATE: 12/21/2018 DISCHARGE DATE: 12/21/18 1621 VISIT LOCKED DATE TIME: PHYSICIAN: JOSE MIGUEL KWONG RESOURCE: JOSE MIGUEL KWONG REASON FOR APPOINTMENT 1. 8 WEEKS HISTORY OF PRESENT ILLNESS HISTORY OF PRESENT ILLNESS: HERE FOR F/U OF CHRONIC NECK AN LOW BACK PAIN.WE STARTED HER ON MELOXICAM AT LAST VISIT AND SHE IS DOING BETTER.COMPLAINING OF CONSTIPATION.WAS TAKING SERTRALINE AND NOW IS TAKING CYMBALTA 60MG DAILY.STATES HER SLEEP IS BETTER. PAIN THE PATIENT DESCRIBES THE PAIN... FALL RISK SCREENING: SCREENING : NO FALLS IN THE PAST YEAR. CURRENT MEDICATIONS TAKING SYSTANE 0.4-0.3 % SOLUTION 1 DROP INTO AFFECTED EYE NEEDED OPHTHALMIC 2-3 TIMES DAILY TAKING LUTEIN 6 MG CAPSULE 1 CAPSULE WITH A MEAL ORALLY ONCE A DAY TAKING VOLTAREN 1 % GEL 4GM EXTERNALLY Q8H PRN TO LOW BACK TAKING PAZEO 0.7 % SOLUTION 1 DROP INTO AFFECTED EYE OPHTHALMIC ONCE A DAY TAKING LORATADINE 10 MG TABLET 1 TABLET ORALLY ONCE A DAY, NOTES: NEEDED TAKING CALCIUM 600 + D 600-400 MG-UNIT TABLET 1 TABLET ORALLY ONCE A DAY TAKING VITAMIN D 1000 UNIT TABLET 1 TABLET ORALLY ONCE A DAY TAKING NEXIUM 40 MG CAPSULE DELAYED RELEASE 1 CAPSULE ORALLY DAILY TAKING MELOXICAM 7.5 MG TABLET 1 TABLET ORALLY BID TAKING GABAPENTIN 100 MG CAPSULE 2 CAPSULES ORALLY THREE TIMES PER DAY TAKING DULOXETINE HCL 60 MG CAPSULE DELAYED RELEASE PARTICLES 1 CAPSULE ORALLY ONCE A DAY TAKING ATORVASTATIN CALCIUM 10 MG TABLET 1 TABLET ORALLY ONCE A DAY TAKING SYNTHROID 25 MCG TABLET 1 TABLET EVERY MORNING ON AN EMPTY STOMACH ORALLY ONCE A DAY NOT-TAKING CINNAMON 500 MG CAPSULE 1 CAP ORALLY DAILY NOT-TAKING FLONASE 50 MCG/ACT SUSPENSION 2 SPRAYS IN EACH NOSTRIL NASALLY ONCE A DAY NOT-TAKING TYLENOL ARTHRITIS PAIN 650 MG TABLET EXTENDED RELEASE 1 TABLETS NEEDED ORALLY EVERY 8 HRS MEDICATION LIST REVIEWED AND RECONCILED WITH THE PATIENT PAST MEDICAL HISTORY HYPERLIPIDEMIA HYPOTHYROIDISM OSTEOARTHRITIS ALLERGIC RHINITIS ESOPHAGEAL REFLUX DRY EYES ANXIETY TINNITUS - EVALUATED AT AUDIOLOGY AND ENT ALLERGIC RHINITIS OSTEOPENIA - SPINE, DEXA 2010 ALLERGIES ENVIRONMENTAL: SINUS CONGESTION: ALLERGY SURGICAL HISTORY CYST REMOVAL - SHOULDER RIGHT HIP REPLACEMENT 04/03 EGD - HH, GUIDO W/VINCE BAKER 2008 COLONOSCOPY - DIVERTICULOSIS, INTERNAL HEMORRHOIDS, VINCE 2008 FAMILY HISTORY FATHER: MOTHER: , DIAGNOSED WITH CANCER 3 BROTHER(S) , 2 SISTER(S) . 2 SON(S) , 2 DAUGHTER(S) . BROTHER - , GRAND MAL SEIZURESBROTHER - HEART DISEASEDAUGHTER - RHEUMATOID ARTHRITIS. SOCIAL HISTORY GENERAL: TOBACCO USE ARE YOU A:NONSMOKER NEVER SMOKER BMI CARE GOAL FOLLOW-UP ABOVE NORMAL BMI FOLLOW-UPGIVING ENCOURAGEMENT TO EXERCISE ALCOHOL SCREENING DID YOU HAVE A DRINK CONTAINING ALCOHOL IN THE PAST YEAR?NO POINTS0 INTERPRETATIONNEGATIVE RECREATIONAL DRUG USE DENIES. CAFFEINE 2/DAY COFFEE, PLUS HERBAL TEA. SEXUAL HX HAD SEX IN THE LAST 12 MONTHS (VAGINAL, ORAL, OR ANAL)?NO HAVE YOU EVER HAD AN STD?NO HIV / HEP-C SCREENING HIV TEST OFFERED TO PATIENT:NO HEP-C TEST OFFERED TO PATIENT:NO LATTER DAY LATTER DAY NO CONGREGATIONAL BELIEFS THAT WOULD IMPACT HEALTH CARE. LANGUAGE LANGUAGES SPOKEN:KITTITIAN EDUCATION LEVEL OF EDUCATION:HIGH SCHOOL LEARNING BARRIERS / SPECIAL NEEDS CHANGE FROM LAST VISIT?NO BARRIERS TO LEARNING?NO HEARING IMPAIRED?NO VISION IMPAIRED?YES :CORRECTIVE LENSES COGNITIVELY IMPAIRED?NO READINESS TO LEARN?YES LEARNING PREFERENCES?YES :TAPES/VIDEOS, BOOKLETS, HANDOUTS LEARNING CAPABILITIES PRESENT?YES EMOTIONAL BARRIERS?NO SPECIAL DEVICES?NO AUTOMOTIVE WORKER FOREMAN NEEDED?NO DOMESTIC VIOLENCE DENIES SEXUAL, PHYSICAL ABUSE, VERBAL ABUSE. 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 DIET: NO HX EATING DISORDERS, LOW FAT, LOW CHOLESTEROL, NO ADDED SALT. EXERCISE: DAILY, WALKS, FARMS, GARDENS. MARITAL STATUS: (SPOUSE NOW RETIRED). OTHERS AT HOME: SPOUSE. PAIN CLINIC PFS, CLERGY, PUBLIC HEALTH REFERRALS HAS THE PATIENT BEEN EDUCATED REGARDING HIS/HER PLAN OF CARE?YES HAS THE PATIENT BEEN EDUCATED REGARDING PAIN, THE RISK FOR PAIN, THE IMPORTANCE OF EFFECTIVE PAIN MANAGEMENT, AND THE PAIN ASSESSMENT PROCESS?YES ADVANCE DIRECTIVE ADVANCE DIRECTIVE DISCUSSED WITH PATIENT:YES HCP - JENNI WILL (DAUGHTER) REVIEWED WITH PATIENT 10/11/18 1514 JSREVIEWED WITH PATIENT 12/21/18 1535 JS. HOSPITALIZATION/MAJOR DIAGNOSTIC PROCEDURE SURGERIES REVIEW OF SYSTEMS REVIEWED BY: PROVIDER: JOSE MIGUEL REES . CONSTITUTIONAL: ANY CHANGE IN YOUR MEDICAL CONDITION? NO . CHILLS NO . FEVER NO . INFECTION: DO YOU HAVE NEW INFECTIONS? NO . DO YOU HAVE HISTORY OF MRSA? NO . MUSCULOSKELETAL: ANY NEW PATTERNS OF PAIN OR NUMBNESS? YES, NEW NUMBNESS TO BILATERAL HANDS, LEFT WORSE THAN RIGHT . GASTROENTEROLOGY: ANY NEW CHANGE IN BOWEL CONTROL? YES, STATES RECENT HARD STOOLS, MAKING IT MORE DIFFICULT TO GO . GENITOURINARY: ANY NEW CHANGE IN BLADDER CONTROL? YES, STATES STRESS INCONTINENCE . IS THERE A CHANCE YOU COULD BE ? NO . HEMATOLOGY/LYMPH: DO YOU TAKE ANY BLOOD THINNERS? (FOR EXAMPLE- COUMADIN, PLAVIX, AGGRENOX, PLATEL, PRADAXA, OR XARELTO) NO . WHEN WAS YOUR LAST DOSE? DATE: TIME: . NEUROLOGY: HAVE YOU FALLEN IN THE PAST 12 MONTHS? YES, STATES FALL TO KNEES TODAY, SLIPPED OUTDOORS. NO ED VISIT, NO IMAGING . ANY NEW EXTREMITY NUMBNESS OR WEAKNESS? YES, NUMBNESS TO LEFT HAND . CARDIOLOGY: DO YOU HAVE A PACEMAKER OR DEFIBRILLATOR? NO . RESPIRATORY: HAVE YOU BEEN SICK IN THE PAST WEEK? NO . FEVER NO . FLU LIKE SYMPTOMS? NO . COUGH YES . INTEGUMENTARY: DO YOU HAVE ANY RASHES OR OPEN SORES? NO . ALLERGIC/IMMUNO: ARE YOU ALLERGIC TO IV DYE? NO . ANY NEW ALLERGIES? NO . PSYCHIATRIC: DO YOU HAVE THOUGHTS OF HURTING YOURSELF OR SOMEONE ELSE? NO . ARE YOU ABUSED, NEGLECTED, OR IN AN UNSAFE ENVIRONMENT? NO . ENDOCRINOLOGY: ARE YOU DIABETIC? NO . OTHER: DO YOU NEED ANY PRESCRIPTIONS? YES . IF YES, PLEASE LIST: ____MELOXICAM . ANY NEW PROBLEMS WITH YOUR MEDICATIONS? NO . WHEN DID YOU LAST EAT? ____ . WHEN DID YOU LAST DRINK? ____ . WHAT DID YOU LAST DRINK? ____ . NAME OF PERSON DRIVING YOU HOME? ____ . DO YOU HAVE ANY OTHER QUESTIONS OR CONCERNS YES, STATES HARDER STOOL, MAKING IT MORE DIFFICULT TO GO . VITAL SIGNS WT 170.6 LBS, HT 62 1/4, BMI 30.95 INDEX, BP 199/91 MM HG, REPEAT BP 184/98 MANUAL, HR 80 /MIN, RR 18 /MIN, TEMP 96.8 F, OXYGEN SAT % 95%, NA INITIALS SC 15:24DISCUSSED ELEVATED BP WITH PATIENT, DOES NOT TAKE BP MEDICATIONS. JOSE MIGUEL KWONG NOTIFIED. 12/21/18 1547 JS. EXAMINATION GENERAL EXAMINATION: GENERAL APPEARANCE:AWAKE,ALERT ,PLEAASANT . PSYCHAFFECT NORMAL . NECK:TRACHEA MIDLINE. NO CERVICAL OR SUPRACLAVICULAR LYMPHADENOPATHY NOTED . LUNGS:LUNG ARCHULETA ARE CLEAR TO AUSCULTATION BILATERALLY. GOOD MOVEMENT OF AIR . HEART:S1, S2 IN A REGULAR RATE AND RHYTHM. NO SIGNIFICANT MURMURS, RUBS OR GALLOPS NOTED . ABDOMEN:SOFT/NONTENDER . MUSCULOSKELETAL:MUSCLE STRENGTH TESTING 5/5 BILATERAL UPPER/LOWER EXTREMITIES . LUMBAR SACRAL SPINEPALPATION: + FOR PAIN OVER L/S SPINE. + FOR PAIN OVER L/S PARASPINALS. , TRIGGER POINTS: LUMBAR PARASPINALS. CERVICALNEGATIVE FOR PAIN WITH PALPATION OF CERVICAL SPINE. NEGATIVE FOR PAIN WITH PALPATION OF CERVICAL PARASPINALS. NEGATIVE FOR PAIN WITH PALPATION OF TRAPEZIUS BILAT . SKIN:NO RASH OR SKIN LESIONS . NEUROLOGIC EXAM:CN'S NORMAL TESTED , DTRS 1-2+ IN ALL 4 EXTREMITIES . DIAGNOSTIC TESTS REVIEWEDMRI L/S SPINE- MRI THORACIC SPINE-03/22/15. ASSESSMENTS GENERALIZED OSTEOARTHROSIS, INVOLVING MULTIPLE SITES - M15.9 (PRIMARY) TREATMENT GENERALIZED OSTEOARTHROSIS, INVOLVING MULTIPLE SITES CONTINUE MELOXICAM TABLET, 7.5 MG, 1 TABLET, ORALLY, BID CONTINUE GABAPENTIN CAPSULE, 100 MG, 2 CAPSULES, ORALLY, THREE TIMES PER DAY CONTINUE DULOXETINE HCL CAPSULE DELAYED RELEASE PARTICLES, 60 MG, 1 CAPSULE, ORALLY, ONCE A DAY START COLACE CAPSULE, 100 MG, 1 CAPSULE NEEDED, ORALLY, BID, 30 DAY(S), 60 CAPSULE, REFILLS 5 PREVENTIVE MEDICINE PAIN CLINIC TEACHING: MEDICATIONS REVIEWED NEW MEDICATION, COLACE, WITH PATIENT. PATIENT VERBALIZED AN UNDERSTANDING. KODAK COON 12/21/2018 4:19:32 PM > . PROCEDURE CODES FA211 ESTABILISHED PATIENT [facility] CHARGE DISPOSITION & COMMUNICATION FOLLOW UP 3 MONTHS ELECTRONICALLY SIGNED BY NEGRITA PALOMINO ON 01/04/2019 AT 11:45 AM EDT DISCLAIMER : THIS IS A VISIT SUMMARY EXTRACTED FROM THE [employer] CHART. IT IS NOT A COPY OF THE [employer] PROGRESS NOTE. MTDD
== END ==
LOC: M PAIN 15:00
PROVIDERS: ATTEND Nurse Practitioner Family
DX: M15.9 Polyosteoarthritis, unspecified (principal); G89.29 Other chronic pain; E78.5 Hyperlipidemia, unspecified; E03.9 Hypothyroidism, unspecified; J45.909 Unspecified asthma, uncomplicated; K21.9 Gastro-esophageal reflux disease without esophagitis; F41.9 Anxiety disorder, unspecified; M85.88 Other specified disorders of bone density and structure, other site; Z79.899 Other long term (current) drug therapy; Z96.641 Presence of right artificial hip joint

== ENCOUNTER → 2019-01-25 | Outpatient (REF) | payer MEDICARE ==
[~2019-01-25] MED LIST changes: -/WARF25TA; +COUM1TAB18; -SERT25TA PO; +SERT25TA85 PO
[2019-01-25 12:47] LABS: BLOOD UREA NITROGEN 22 MG/DL (7-18); CALCIUM LEVEL 8.7 MG/DL (8.8-10.2); CARBON DIOXIDE LEVEL 26 MEQ/L (21-32); CHLORIDE LEVEL 94 MEQ/L (98-107); CREATININE FOR GFR 0.66 MG/DL (0.55-1.30); GLOMERULAR FILTRATION RATE > 60.0 (>39); GLUCOSE, FASTING 146 MG/DL (70-100); POTASSIUM SERUM 3.9 MEQ/L (3.5-5.1); SODIUM LEVEL 129 MEQ/L (136-145)
== END ==
LOC: M SFHCADAM 10:10
PROVIDERS: ATTEND Nurse Practitioner Family
DX: I10 Essential (primary) hypertension (principal)

== ENCOUNTER → 2019-02-07 | Outpatient (CLI) | payer MEDICARE ==
--- NOTE | 2019-02-07 13:32 | REP ---
RIGHT KNEE, FIVE VIEWS: HISTORY: Knee pain. There is no acute fracture or dislocation. The joint spaces are normal in appearance. IMPRESSION: There is no acute fracture or dislocation. Electronically Signed by Iftikhar Darnell MD 02/07/2019 02:02 P
== END ==
LOC: M RAD 10:58
PROVIDERS: ATTEND Nurse Practitioner Family
DX: M25.561 Pain in right knee (principal)
CPT/HCPCS: 73564; G0463

== ENCOUNTER → 2019-02-14 | Outpatient (REF) | payer MEDICARE ==
[2019-02-14 13:19] LABS: FREE T4 0.92 NG/DL (0.76-1.46); THYROID STIMULATING HORMONE 1.75 uIU/ML (0.358-3.740)
[2019-02-14 13:23] LABS: TOTAL 25(OH) VITAMIN D 33.6 NG/ML (30.0-100.0)
== END ==
LOC: M SFHCPLAZ 09:02
PROVIDERS: ATTEND Nurse Practitioner Family
DX: E03.9 Hypothyroidism, unspecified (principal); E55.9 Vitamin D deficiency, unspecified

== ENCOUNTER → 2019-03-22 | Outpatient (CLI) | payer MEDICARE ==
--- NOTE | 2019-04-03 00:53 | ECWPNPC ---
PATIENT NAME: KAMALA REEDER : 1940 GENDER: FEMALE VISIT DATE: 03/22/2019 DISCHARGE DATE: 03/22/19 1423 VISIT LOCKED DATE TIME: PHYSICIAN: JOSE MIGUEL KWONG RESOURCE: JOSE MIGUEL KWONG REASON FOR APPOINTMENT 1. BACK/NECK HISTORY OF PRESENT ILLNESS HISTORY OF PRESENT ILLNESS: HERE FOR F/U OF CHRONIC NECK AND LOW BACK PAIN.TAKING MELOXICAM AND GABAPENTIN THAT WE PRESCRIBE AND THIS HAS BEEN HELPFUL.RATING PAIN VAS 1/10. PAIN THE PATIENT DESCRIBES THE PAIN... THE PATIENT DESCRIBES THE PAIN... FALL RISK SCREENING: SCREENING :NO FALLS REPORTED IN THE LAST YEAR CURRENT MEDICATIONS TAKING SYSTANE 0.4-0.3 % SOLUTION 1 DROP INTO AFFECTED EYE NEEDED OPHTHALMIC 2-3 TIMES DAILY TAKING LUTEIN 6 MG CAPSULE 1 CAPSULE WITH A MEAL ORALLY ONCE A DAY TAKING VOLTAREN 1 % GEL 4GM EXTERNALLY Q8H PRN TO LOW BACK TAKING PAZEO 0.7 % SOLUTION 1 DROP INTO AFFECTED EYE OPHTHALMIC ONCE A DAY TAKING ATORVASTATIN CALCIUM 10 MG TABLET 1 TABLET ORALLY ONCE A DAY TAKING COLACE 100 MG CAPSULE 1 CAPSULE NEEDED ORALLY BID TAKING SYNTHROID 25 MCG TABLET 1 TABLET EVERY MORNING ON AN EMPTY STOMACH ORALLY ONCE A DAY TAKING VITAMIN D 1000 UNIT TABLET 1 TABLET ORALLY ONCE A DAY TAKING CALCIUM 600 + D 600-400 MG-UNIT TABLET 1 TABLET ORALLY ONCE A DAY TAKING DULOXETINE HCL 60 MG CAPSULE DELAYED RELEASE PARTICLES 1 CAPSULE ORALLY ONCE A DAY TAKING MELOXICAM 7.5 MG TABLET 1 TABLET ORALLY BID TAKING LISINOPRIL 10 MG TABLET 1 TABLET ORALLY ONCE A DAY TAKING GABAPENTIN 100 MG CAPSULE 2 CAPSULES ORALLY THREE TIMES PER DAY TAKING NEXIUM 40 MG CAPSULE DELAYED RELEASE 1 CAPSULE ORALLY DAILY NOT-TAKING PREDNISONE 20 MG TABLET 1 TABLET ORALLY ONCE A DAY NOT-TAKING DOXYCYCLINE HYCLATE 100 MG CAPSULE 1 CAPSULE ORALLY ONCE A DAY MEDICATION LIST REVIEWED AND RECONCILED WITH THE PATIENT PAST MEDICAL HISTORY HYPERLIPIDEMIA HYPOTHYROIDISM OSTEOARTHRITIS ALLERGIC RHINITIS ESOPHAGEAL REFLUX DRY EYES ANXIETY TINNITUS - EVALUATED AT AUDIOLOGY AND ENT ALLERGIC RHINITIS OSTEOPENIA - SPINE, DEXA 2010 ALLERGIES ENVIRONMENTAL: SINUS CONGESTION - ALLERGY CHLORTHALIDONE: HYPONATREMIA - SIDE EFFECTS SURGICAL HISTORY CYST REMOVAL - SHOULDER RIGHT HIP REPLACEMENT 04/03 EGD - HH, BX W/INFLAMMATIONVINCE 2008 COLONOSCOPY - DIVERTICULOSIS, INTERNAL HEMORRHOIDS, VINCE 2008 FAMILY HISTORY FATHER: MOTHER: , DIAGNOSED WITH CANCER 3 BROTHER(S) , 2 SISTER(S) . 2 SON(S) , 2 DAUGHTER(S) . BROTHER - , GRAND MAL SEIZURES\\\\\\\\NBROTHER - HEART DISEASE\\\\\\\\NDAUGHTER - RHEUMATOID ARTHRITIS. SOCIAL HISTORY GENERAL: TOBACCO USE ARE YOU A:NONSMOKER NEVER SMOKER HIV / HEP-C SCREENING HIV TEST OFFERED TO PATIENT:NO HEP-C TEST OFFERED TO PATIENT:NO OTHERS AT HOME: SPOUSE. EDUCATION LEVEL OF EDUCATION:HIGH SCHOOL DIET: NO HX EATING DISORDERS, LOW FAT, LOW CHOLESTEROL, NO ADDED SALT. LANGUAGE LANGUAGES SPOKEN:FRISIAN DOMESTIC VIOLENCE DENIES SEXUAL, PHYSICAL ABUSE, VERBAL ABUSE. BMI CARE GOAL FOLLOW-UP ABOVE NORMAL BMI FOLLOW-UPGIVING ENCOURAGEMENT TO EXERCISE RECREATIONAL DRUG USE DENIES. EXERCISE: DAILY, WALKS, FARMS, GARDENS. LEARNING BARRIERS / SPECIAL NEEDS CHANGE FROM LAST VISIT?NO BARRIERS TO LEARNING?NO HEARING IMPAIRED?NO VISION IMPAIRED?YES COGNITIVELY IMPAIRED?NO :CORRECTIVE LENSES READINESS TO LEARN?YES LEARNING PREFERENCES?YES :TAPES/VIDEOS, BOOKLETS, HANDOUTS LEARNING CAPABILITIES PRESENT?YES EMOTIONAL BARRIERS?NO SPECIAL DEVICES?NO DIRECTOR OF ANNUAL GIVING NEEDED?NO PAIN CLINIC PFS, CLERGY, PUBLIC HEALTH REFERRALS HAS THE PATIENT BEEN EDUCATED REGARDING HIS/HER PLAN OF CARE?YES HAS THE PATIENT BEEN EDUCATED REGARDING PAIN, THE RISK FOR PAIN, THE IMPORTANCE OF EFFECTIVE PAIN MANAGEMENT, AND THE PAIN ASSESSMENT PROCESS?YES LATEX QUESTIONNAIRE LATEX ALLERGY : HAVE YOU EVER DEVELOPED ANY TYPE OF REACTION AFTER HANDLING LATEX PRODUCTS SUCH RUBBER GLOVES, CONDOMS, DIAPHRAGMS, BALLOONS, SOCKS, OR UNDERWEAR?NO LATEX ALLERGY : HAVE YOU EVER DEVELOPED ANY TYPE OF REACTION DURING OR AFTER DENTAL APPOINTMENT, VAGINAL/RECTAL EXAMINATION, SURGICAL PROCEDURE, OR ANY OTHER EXPOSURE?NO DATE ASKED : 01/17/2019 LATEX RISK : HAVE YOU EVER HAD ANY DIFFICULTY BREATHING OR HIVES AFTER EATING OR HANDLING ANY FRUITS, OR VEGETABLES; SUCH KIWI, BANANAS, STONE FRUITS, OR CHESTNUTSNO LATEX RISK : DO YOU HAVE A PREVIOUS PERSONAL HISTORY OF MORE THAN NINE SURGERIES, SPINA BIFIDA, OR REPEATED CATHERTIZATIONS? NO LATEX RISK : ARE YOU FREQUENTLY EXPOSED TO LATEX PRODUCTS IN YOUR OCCUPATION?NO CAFFEINE 2/DAY COFFEE, PLUS HERBAL TEA. ADVANCE DIRECTIVE ADVANCE DIRECTIVE DISCUSSED WITH PATIENT:YES HCP - JENNI SOLIS (DAUGHTER) TENRIISM TENRIISM NO VOODOO BELIEFS THAT WOULD IMPACT HEALTH CARE. MARITAL STATUS: (SPOUSE NOW RETIRED). 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 SEXUAL HX HAD SEX IN THE LAST 12 MONTHS (VAGINAL, ORAL, OR ANAL)?NO HAVE YOU EVER HAD AN STD?NO REVIEWED WITH PATIENT 10/11/18 1514 JSREVIEWED WITH PATIENT 12/21/18 1535 JSREVIEWED WITH PT 03/22/19 1349 BV. HOSPITALIZATION/MAJOR DIAGNOSTIC PROCEDURE SURGERIES REVIEW OF SYSTEMS REVIEWED BY: PROVIDER: JOSE MIGUEL REES . CONSTITUTIONAL: ANY CHANGE IN YOUR MEDICAL CONDITION? NO . CHILLS NO . FEVER NO . INFECTION: DO YOU HAVE NEW INFECTIONS? NO . DO YOU HAVE HISTORY OF MRSA? NO . MUSCULOSKELETAL: ANY NEW PATTERNS OF PAIN OR NUMBNESS? NO . GASTROENTEROLOGY: ANY NEW CHANGE IN BOWEL CONTROL? NO . GENITOURINARY: ANY NEW CHANGE IN BLADDER CONTROL? YES, PT COMPLAINS OF STRESS INCONTINENCE. . IS THERE A CHANCE YOU COULD BE ? NO . HEMATOLOGY/LYMPH: DO YOU TAKE ANY BLOOD THINNERS? (FOR EXAMPLE- COUMADIN, PLAVIX, AGGRENOX, PLATEL, PRADAXA, OR XARELTO) NO . WHEN WAS YOUR LAST DOSE? DATE: TIME: . NEUROLOGY: HAVE YOU FALLEN IN THE PAST 12 MONTHS? YES, PT STATES SHE HAD 2 FALLS AROUND DECEMBER, STATES SHE FELL TO HER KNEES BOTH TIMES. STATES SHE HAD IMAGING DONE AT [facility]IMARY [facility] . ANY NEW EXTREMITY NUMBNESS OR WEAKNESS? YES, PT COMPLAINS OF INCREASED WEAKNESS IN LEFT LEG OVER THE PAST COUPLE MONTHS . CARDIOLOGY: DO YOU HAVE A PACEMAKER OR DEFIBRILLATOR? NO . RESPIRATORY: HAVE YOU BEEN SICK IN THE PAST WEEK? NO . FEVER NO . FLU LIKE SYMPTOMS? NO . COUGH YES, RELATED TO SINUSES . INTEGUMENTARY: DO YOU HAVE ANY RASHES OR OPEN SORES? NO . ALLERGIC/IMMUNO: ARE YOU ALLERGIC TO IV DYE? NO . ANY NEW ALLERGIES? NO . PSYCHIATRIC: DO YOU HAVE THOUGHTS OF HURTING YOURSELF OR SOMEONE ELSE? NO . ARE YOU ABUSED, NEGLECTED, OR IN AN UNSAFE ENVIRONMENT? NO . ENDOCRINOLOGY: ARE YOU DIABETIC? NO . OTHER: DO YOU NEED ANY PRESCRIPTIONS? YES, GABAPENTIN . IF YES, PLEASE LIST: ____ . ANY NEW PROBLEMS WITH YOUR MEDICATIONS? NO . WHEN DID YOU LAST EAT? ____ . WHEN DID YOU LAST DRINK? ____ . WHAT DID YOU LAST DRINK? ____ . NAME OF PERSON DRIVING YOU HOME? ____ . DO YOU HAVE ANY OTHER QUESTIONS OR CONCERNS NO . VITAL SIGNS WT 172.0 LBS, HT 62 1/4, BMI 31.20 INDEX, BP 174/74 MM HG, HR 80 /MIN, RR 18 /MIN, TEMP 98.0 F, OXYGEN SAT % 80, NA INITIALS MP 1333, REVIEWED BY: BV. EXAMINATION GENERAL EXAMINATION: GENERAL APPEARANCE:AWAKE,ALERT ,PLEAASANT . PSYCHAFFECT NORMAL . LUNGS:LUNG ARCHULETA ARE CLEAR TO AUSCULTATION BILATERALLY. GOOD MOVEMENT OF AIR . HEART:S1, S2 IN A REGULAR RATE AND RHYTHM. NO SIGNIFICANT MURMURS, RUBS OR GALLOPS NOTED . ASSESSMENTS GENERALIZED OSTEOARTHROSIS, INVOLVING MULTIPLE SITES - M15.9 (PRIMARY) TREATMENT GENERALIZED OSTEOARTHROSIS, INVOLVING MULTIPLE SITES CONTINUE VOLTAREN GEL, 1 %, 4GM, EXTERNALLY, Q8H PRN TO LOW BACK CONTINUE COLACE CAPSULE, 100 MG, 1 CAPSULE NEEDED, ORALLY, BID CONTINUE MELOXICAM TABLET, 7.5 MG, 1 TABLET, ORALLY, BID REFILL GABAPENTIN CAPSULE, 100 MG, 2 CAPSULES, ORALLY, THREE TIMES PER DAY, 90 DAY(S), 540, REFILLS 0 NOTES: CONTINUE HOME EXCERSISE. PROCEDURE CODES FA211 ESTABILISHED PATIENT [facility] CHARGE DISPOSITION & COMMUNICATION FOLLOW UP 3 MONTHS ELECTRONICALLY SIGNED BY NEGRITA PALOMINO ON 04/02/2019 AT 09:49 AM EDT DISCLAIMER : THIS IS A VISIT SUMMARY EXTRACTED FROM THE [employer] CHART. IT IS NOT A COPY OF THE [employer] PROGRESS NOTE. JEREMIAH
== END ==
LOC: M PAIN 13:30
PROVIDERS: ATTEND Nurse Practitioner Family
DX: M15.9 Polyosteoarthritis, unspecified (principal); G89.29 Other chronic pain; E78.5 Hyperlipidemia, unspecified; E03.9 Hypothyroidism, unspecified; K21.9 Gastro-esophageal reflux disease without esophagitis; Z86.59 Personal history of other mental and behavioral disorders; Z96.641 Presence of right artificial hip joint; Z88.8 Allergy status to other drugs, medicaments and biological substances; Z79.899 Other long term (current) drug therapy

== ENCOUNTER → 2019-04-01 | Outpatient (REF) | payer MEDICARE ==
[2019-04-01 18:14] LABS: BLOOD UREA NITROGEN 18 MG/DL (7-18); CALCIUM LEVEL 8.4 MG/DL (8.8-10.2); CARBON DIOXIDE LEVEL 28 MEQ/L (21-32); CHLORIDE LEVEL 104 MEQ/L (98-107); CREATININE FOR GFR 0.64 MG/DL (0.55-1.30); GLOMERULAR FILTRATION RATE > 60.0 (>39); GLUCOSE, FASTING 124 MG/DL (70-100); POTASSIUM SERUM 4.4 MEQ/L (3.5-5.1); SODIUM LEVEL 138 MEQ/L (136-145)
== END ==
LOC: M SFHCADAM 09:30
PROVIDERS: ATTEND Nurse Practitioner Family
DX: I10 Essential (primary) hypertension (principal)

== ENCOUNTER → 2019-06-23 | Outpatient (CLI) | payer MEDICARE ==
--- NOTE | 2019-07-13 02:26 | ECWPNPC ---
PATIENT NAME: KAMALA REEDER : 1940 GENDER: FEMALE VISIT DATE: 06/23/2019 DISCHARGE DATE: 06/23/19 1419 VISIT LOCKED DATE TIME: PHYSICIAN: JOSE MIGUEL KWONG RESOURCE: JOSE MIGUEL KWONG REASON FOR APPOINTMENT 1. BACK/NECK HISTORY OF PRESENT ILLNESS HISTORY OF PRESENT ILLNESS: HERE FOR F/U OF CHRONIC NECK AND LOW BACK PAIN.TAKING MELOXICAM AND GABAPENTIN THAT WE PRESCRIBE AND THIS HAS BEEN HELPFUL.RATING PAIN VAS 4/10. PAIN THE PATIENT DESCRIBES THE PAIN... THE PATIENT DESCRIBES THE PAIN... THE PATIENT DESCRIBES THE PAIN... FALL RISK SCREENING: SCREENING :NO FALLS REPORTED IN THE LAST YEAR CURRENT MEDICATIONS TAKING SYSTANE 0.4-0.3 % SOLUTION 1 DROP INTO AFFECTED EYE NEEDED OPHTHALMIC 2-3 TIMES DAILY TAKING LUTEIN 6 MG CAPSULE 1 CAPSULE WITH A MEAL ORALLY ONCE A DAY TAKING PAZEO 0.7 % SOLUTION 1 DROP INTO AFFECTED EYE OPHTHALMIC ONCE A DAY TAKING VOLTAREN 1 % GEL 4GM EXTERNALLY Q8H PRN TO LOW BACK TAKING MELOXICAM 7.5 MG TABLET 1 TABLET ORALLY BID TAKING GABAPENTIN 100 MG CAPSULE 2 CAPSULES ORALLY THREE TIMES PER DAY TAKING NEXIUM 40 MG CAPSULE DELAYED RELEASE 1 CAPSULE ORALLY DAILY TAKING VITAMIN D 1000 UNIT TABLET 1 TABLET ORALLY ONCE A DAY TAKING CALCIUM 600 + D 600-400 MG-UNIT TABLET 1 TABLET ORALLY ONCE A DAY TAKING DULOXETINE HCL 60 MG CAPSULE DELAYED RELEASE PARTICLES 1 CAPSULE ORALLY ONCE A DAY TAKING LOSARTAN POTASSIUM 50 MG TABLET 1 TABLET ORALLY ONCE A DAY TAKING ATORVASTATIN CALCIUM 10 MG TABLET 1 TABLET ORALLY ONCE A DAY TAKING SYNTHROID 25 MCG TABLET 1 TABLET EVERY MORNING ON AN EMPTY STOMACH ORALLY ONCE A DAY NOT-TAKING COLACE 100 MG CAPSULE 1 CAPSULE NEEDED ORALLY BID MEDICATION LIST REVIEWED AND RECONCILED WITH THE PATIENT PAST MEDICAL HISTORY HYPERLIPIDEMIA HYPOTHYROIDISM OSTEOARTHRITIS ALLERGIC RHINITIS ESOPHAGEAL REFLUX DRY EYES ANXIETY TINNITUS - EVALUATED AT AUDIOLOGY AND ENT ALLERGIC RHINITIS OSTEOPENIA - SPINE, DEXA 2010 ALLERGIES ENVIRONMENTAL: SINUS CONGESTION - ALLERGY CHLORTHALIDONE: HYPONATREMIA - SIDE EFFECTS LISINOPRIL: COUGH - SIDE EFFECTS SURGICAL HISTORY CYST REMOVAL - SHOULDER RIGHT HIP REPLACEMENT 04/03 EGD - HHGUIDO W/INFLAMMATIONVINCE 2008 COLONOSCOPY - DIVERTICULOSIS, INTERNAL HEMORRHOIDS, VINCE 2008 FAMILY HISTORY FATHER: MOTHER: , DIAGNOSED WITH OTHER MALIGNANT NEOPLASM OF UNSPECIFIED SITE 3 BROTHER(S) , 2 SISTER(S) . 2 SON(S) , 2 DAUGHTER(S) . BROTHER - , GRAND MAL SEIZURES\\\\\\\\NBROTHER - HEART DISEASE\\\\\\\\NDAUGHTER - RHEUMATOID ARTHRITIS. SOCIAL HISTORY GENERAL: TOBACCO USE ARE YOU A:NONSMOKER NEVER SMOKER HIV / HEP-C SCREENING HIV TEST OFFERED TO PATIENT:NO HEP-C TEST OFFERED TO PATIENT:NO OTHERS AT HOME: SPOUSE. EDUCATION LEVEL OF EDUCATION:HIGH SCHOOL DIET: NO HX EATING DISORDERS, LOW FAT, LOW CHOLESTEROL, NO ADDED SALT. LANGUAGE LANGUAGES SPOKEN:SYRIAN DOMESTIC VIOLENCE DENIES SEXUAL, PHYSICAL ABUSE, VERBAL ABUSE. BMI CARE GOAL FOLLOW-UP ABOVE NORMAL BMI FOLLOW-UPGIVING ENCOURAGEMENT TO EXERCISE RECREATIONAL DRUG USE DENIES. EXERCISE: DAILY, WALKS, FARMS, GARDENS. LEARNING BARRIERS / SPECIAL NEEDS CHANGE FROM LAST VISIT?NO BARRIERS TO LEARNING?NO HEARING IMPAIRED?NO VISION IMPAIRED?YES COGNITIVELY IMPAIRED?NO :CORRECTIVE LENSES READINESS TO LEARN?YES LEARNING PREFERENCES?YES :TAPES/VIDEOS, BOOKLETS, HANDOUTS LEARNING CAPABILITIES PRESENT?YES EMOTIONAL BARRIERS?NO SPECIAL DEVICES?NO DOG TRAINER NEEDED?NO PAIN CLINIC PFS, CLERGY, PUBLIC HEALTH REFERRALS HAS THE PATIENT BEEN EDUCATED REGARDING HIS/HER PLAN OF CARE?YES HAS THE PATIENT BEEN EDUCATED REGARDING PAIN, THE RISK FOR PAIN, THE IMPORTANCE OF EFFECTIVE PAIN MANAGEMENT, AND THE PAIN ASSESSMENT PROCESS?YES LATEX QUESTIONNAIRE LATEX ALLERGY : HAVE YOU EVER DEVELOPED ANY TYPE OF REACTION AFTER HANDLING LATEX PRODUCTS SUCH RUBBER GLOVES, CONDOMS, DIAPHRAGMS, BALLOONS, SOCKS, OR UNDERWEAR?NO LATEX ALLERGY : HAVE YOU EVER DEVELOPED ANY TYPE OF REACTION DURING OR AFTER DENTAL APPOINTMENT, VAGINAL/RECTAL EXAMINATION, SURGICAL PROCEDURE, OR ANY OTHER EXPOSURE?NO DATE ASKED : 01/17/2019 LATEX RISK : HAVE YOU EVER HAD ANY DIFFICULTY BREATHING OR HIVES AFTER EATING OR HANDLING ANY FRUITS, OR VEGETABLES; SUCH KIWI, BANANAS, STONE FRUITS, OR CHESTNUTSNO LATEX RISK : DO YOU HAVE A PREVIOUS PERSONAL HISTORY OF MORE THAN NINE SURGERIES, SPINA BIFIDA, OR REPEATED CATHERIZATIONS? NO LATEX RISK : ARE YOU FREQUENTLY EXPOSED TO LATEX PRODUCTS IN YOUR OCCUPATION?NO CAFFEINE 2/DAY COFFEE, PLUS HERBAL TEA. ADVANCE DIRECTIVE ADVANCE DIRECTIVE DISCUSSED WITH PATIENT:YES HCP - JENNI SOLIS (DAUGHTER) [employer] NO JEWISH BELIEFS THAT WOULD IMPACT HEALTH CARE. MARITAL STATUS: (SPOUSE NOW RETIRED). 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 SEXUAL HX HAD SEX IN THE LAST 12 MONTHS (VAGINAL, ORAL, OR ANAL)?NO HAVE YOU EVER HAD AN STD?NO REVIEWED WITH PATIENT 10/11/18 1514 JSREVIEWED WITH PATIENT 12/21/18 1535 JSREVIEWED WITH PT 03/22/19 1349 BVREVIEWED WITH PATIENT 06/23/19 1320 LAS. HOSPITALIZATION/MAJOR DIAGNOSTIC PROCEDURE SURGERIES REVIEW OF SYSTEMS REVIEWED BY: PROVIDER: JOSE MIGUEL REES . CONSTITUTIONAL: ANY CHANGE IN YOUR MEDICAL CONDITION? NO . CHILLS NO . FEVER NO . INFECTION: DO YOU HAVE NEW INFECTIONS? NO . DO YOU HAVE HISTORY OF MRSA? NO . MUSCULOSKELETAL: ANY NEW PATTERNS OF PAIN OR NUMBNESS? YES PT REPORTS 2 FINGERS OF HER RIGHT HAND GO NUMB FREQUENTLY. SHE WEARS AN OVER THE COUNTER WRIST BRACE RECOMMENDED BY THE ORTHO GROUP FOR CARPAL TUNNEL. . GASTROENTEROLOGY: ANY NEW CHANGE IN BOWEL CONTROL? PT REPORTS AN INCREASE IN ABDOMINAL GAS/BLOATING AND URGENCY OF BOWELS. . GENITOURINARY: ANY NEW CHANGE IN BLADDER CONTROL? NO . IS THERE A CHANCE YOU COULD BE ? NO . HEMATOLOGY/LYMPH: DO YOU TAKE ANY BLOOD THINNERS? (FOR EXAMPLE- COUMADIN, PLAVIX, AGGRENOX, PLATEL, PRADAXA, OR XARELTO) NO . WHEN WAS YOUR LAST DOSE? DATE: TIME: . NEUROLOGY: HAVE YOU FALLEN IN THE PAST 12 MONTHS? NO . ANY NEW EXTREMITY NUMBNESS OR WEAKNESS? NO . CARDIOLOGY: DO YOU HAVE A PACEMAKER OR DEFIBRILLATOR? NO . RESPIRATORY: HAVE YOU BEEN SICK IN THE PAST WEEK? NO . FEVER NO . FLU LIKE SYMPTOMS? NO . COUGH NO . INTEGUMENTARY: DO YOU HAVE ANY RASHES OR OPEN SORES? NO . ALLERGIC/IMMUNO: ARE YOU ALLERGIC TO IV DYE? NO . ANY NEW ALLERGIES? NO . PSYCHIATRIC: DO YOU HAVE THOUGHTS OF HURTING YOURSELF OR SOMEONE ELSE? NO . ARE YOU ABUSED, NEGLECTED, OR IN AN UNSAFE ENVIRONMENT? NO . ENDOCRINOLOGY: ARE YOU DIABETIC? NO . OTHER: DO YOU NEED ANY PRESCRIPTIONS? YES . IF YES, PLEASE LIST: ____VOLTAREN GEL, GABAPENTIN, MELOXICAM . ANY NEW PROBLEMS WITH YOUR MEDICATIONS? NO . WHEN DID YOU LAST EAT? ____ . WHEN DID YOU LAST DRINK? ____ . WHAT DID YOU LAST DRINK? ____ . NAME OF PERSON DRIVING YOU HOME? ____ . DO YOU HAVE ANY OTHER QUESTIONS OR CONCERNS YES PT REPORTS INCREASED PAIN IN BOTH KNEES, OCCASIONALLY WEARS A SUPPORTIVE BRACE. FEELS HER KNEES ARE SWOLLEN. . VITAL SIGNS WT 172.0 LBS, HT 62 1/4, BMI 31.20 INDEX, BP 195/84 MM HG, HR 80 /MIN, RR 18 /MIN, TEMP 97.2 F, OXYGEN SAT % 94%, NA INITIALS AW 1325LET NURSE KNOW ABOUT BP. EXAMINATION GENERAL EXAMINATION: GENERALAWAKE,ALERT ,PLEAASANT . PSYCHAFFECT NORMAL . LUNGS:LUNG ARCHULETA ARE CLEAR TO AUSCULTATION BILATERALLY. GOOD MOVEMENT OF AIR . HEART:S1, S2 IN A REGULAR RATE AND RHYTHM. NO SIGNIFICANT MURMURS, RUBS OR GALLOPS NOTED . ASSESSMENTS GENERALIZED OSTEOARTHROSIS, INVOLVING MULTIPLE SITES - M15.9 (PRIMARY) TREATMENT GENERALIZED OSTEOARTHROSIS, INVOLVING MULTIPLE SITES REFILL GABAPENTIN CAPSULE, 100 MG, 2 CAPSULES, ORALLY, THREE TIMES PER DAY, 90 DAY(S), 540, REFILLS 0 REFILL MELOXICAM TABLET, 7.5 MG, 1 TABLET, ORALLY, BID, 30 DAYS, 60 TABLET, REFILLS 2 REFILL VOLTAREN GEL, 1 %, 4GM, EXTERNALLY, Q8H PRN TO LOW BACK, 30 DAYS, 1, REFILLS 5 NOTES: CONTINUE CURRENT MEDICATION FOR CHRONIC PAIN.CALL PRIMARY CARE TO GET SOONER F/U. PROCEDURE CODES FA211 ESTABILISHED PATIENT [facility] CHARGE DISPOSITION & COMMUNICATION FOLLOW UP 3 MONTHS (REASON: MED MGMNT) ELECTRONICALLY SIGNED BY NEGRITA PALOMINO ON 07/12/2019 AT 11:01 AM EDT DISCLAIMER : THIS IS A VISIT SUMMARY EXTRACTED FROM THE [employer] CHART. IT IS NOT A COPY OF THE [employer] PROGRESS NOTE. JEREMIAH
== END ==
LOC: M PAIN 13:30
PROVIDERS: ATTEND Nurse Practitioner Family
DX: M15.9 Polyosteoarthritis, unspecified (principal); G89.29 Other chronic pain; E78.5 Hyperlipidemia, unspecified; E03.9 Hypothyroidism, unspecified; K21.9 Gastro-esophageal reflux disease without esophagitis; Z86.59 Personal history of other mental and behavioral disorders; M85.88 Other specified disorders of bone density and structure, other site; Z96.641 Presence of right artificial hip joint; Z88.8 Allergy status to other drugs, medicaments and biological substances; Z79.899 Other long term (current) drug therapy

== ENCOUNTER → 2019-07-17 | Outpatient (CLI) | payer MEDICARE ==
--- NOTE | 2019-07-18 01:47 | REP ---
Clinical: Pain. Technique: AP, lateral, bilateral oblique views of the left knee. Findings: Early moderate and essentially age-appropriate tricompartmental osteoarthritic degenerative changes are appreciated including subchondral sclerosis, marginal osteophytosis, and mild joint space narrowing. No acute fracture dislocation. No obvious effusion. Impression: Early moderate/age-appropriate tricompartmental degenerative changes. Electronically Signed by Papo Ann MD 07/18/2019 01:39 A
--- NOTE | 2019-07-18 02:00 | REP ---
Clinical: Pain. Technique: AP and frog lateral views of the left hip. Findings: Moderate arthritic degenerative changes include age-related osteopenia, joint space narrowing, subchondral sclerosis, marginal spurring/osteophyte formation along the acetabular rim and enthesopathy along the visualized pelvic bones and greater trochanter. Impression: Moderate osteopenia and arthritic degenerative changes. Electronically Signed by Papo Ann MD 07/18/2019 01:51 A
== END ==
LOC: M WUC 14:36
PROVIDERS: ATTEND Nurse Practitioner Family
DX: M17.12 Unilateral primary osteoarthritis, left knee (principal); M16.12 Unilateral primary osteoarthritis, left hip; M85.852 Other specified disorders of bone density and structure, left thigh

== ENCOUNTER → 2019-08-17 | Outpatient (REF) | payer MEDICARE ==
[2019-08-17 18:19] LABS: ALBUMIN 3.7 GM/DL (3.2-5.2); ALT/SGPT 26 U/L (12-78); BILIRUBIN,TOTAL 0.5 MG/DL (0.2-1.0); BLOOD UREA NITROGEN 15 MG/DL (7-18); CALCIUM LEVEL 8.6 MG/DL (8.8-10.2); CARBON DIOXIDE LEVEL 29 MEQ/L (21-32); CHLORIDE LEVEL 98 MEQ/L (98-107); CREATININE FOR GFR 0.66 MG/DL (0.55-1.30); FREE T4 0.91 NG/DL (0.76-1.46); GLOMERULAR FILTRATION RATE > 60.0 (>39); GLUCOSE, FASTING 84 MG/DL (70-100); POTASSIUM SERUM 4.3 MEQ/L (3.5-5.1); SODIUM LEVEL 133 MEQ/L (136-145); TOTAL PROTEIN 6.8 GM/DL (6.4-8.2)
[2019-08-17 18:40] LABS: CREATININE, URINE 34.2 MG/DL; MALB URINE SIEMENS 5.4 MG/L; MAU/CREAT RATIO 15.7 MCG/MG (0.0-30.0)
== END ==
LOC: M SFHCPLAZ 14:30
PROVIDERS: ATTEND Nurse Practitioner Family
DX: I10 Essential (primary) hypertension (principal); E03.9 Hypothyroidism, unspecified; E55.9 Vitamin D deficiency, unspecified
CPT/HCPCS: 36415; 80053; 82043; 82306; 84439; 84443; 90682; G0008; G0463

== ENCOUNTER → 2019-09-14 | Outpatient (CLI) | payer MEDICARE ==
--- NOTE | 2019-09-16 06:23 | ECWPNPC ---
PATIENT NAME: KAMALA REEDER : 1940 GENDER: FEMALE VISIT DATE: 09/14/2019 DISCHARGE DATE: 09/14/19 1356 VISIT LOCKED DATE TIME: PHYSICIAN: CATHERINE NICOLE RESOURCE: CATHERINE NICOLE REASON FOR APPOINTMENT 1. BACK/NECK HISTORY OF PRESENT ILLNESS HISTORY OF PRESENT ILLNESS: PAIN THE PATIENT DESCRIBES THE PAIN... 78-YEAR-OLD FEMALE IN FOR CHRONIC PAIN FOLLOW-UP. SHE RATES HER PAIN CURRENTLY AT A 5 OUT OF 10 AND DESCRIBES IT SORE, AND TENDER. SHE IS CURRENTLY TAKING MELOXICAM TO HELP ALLEVIATE HER SYMPTOMS AND STATES THAT SHE FEELS IT IS CAUSING TO HAVE LOOSE STOOL. FALL RISK SCREENING: SCREENING :NO FALLS REPORTED IN THE LAST YEAR CURRENT MEDICATIONS TAKING SYSTANE 0.4-0.3 % SOLUTION 1 DROP INTO AFFECTED EYE NEEDED OPHTHALMIC 2-3 TIMES DAILY TAKING LUTEIN 6 MG CAPSULE 1 CAPSULE WITH A MEAL ORALLY ONCE A DAY TAKING PAZEO 0.7 % SOLUTION 1 DROP INTO AFFECTED EYE OPHTHALMIC ONCE A DAY TAKING NEXIUM 40 MG CAPSULE DELAYED RELEASE 1 CAPSULE ORALLY DAILY TAKING GABAPENTIN 100 MG CAPSULE 2 CAPSULES ORALLY THREE TIMES PER DAY TAKING MELOXICAM 7.5 MG TABLET 1 TABLET ORALLY BID TAKING VOLTAREN 1 % GEL 4GM EXTERNALLY Q8H PRN TO LOW BACK TAKING ATORVASTATIN CALCIUM 10 MG TABLET 1 TABLET ORALLY ONCE A DAY TAKING SYNTHROID 25 MCG TABLET 1 TABLET EVERY MORNING ON AN EMPTY STOMACH ORALLY ONCE A DAY TAKING DULOXETINE HCL 60 MG CAPSULE DELAYED RELEASE PARTICLES 1 CAPSULE ORALLY ONCE A DAY TAKING LOSARTAN POTASSIUM 50 MG TABLET 1 TABLET ORALLY ONCE A DAY TAKING VITAMIN D 1000 UNIT TABLET 2 TABS ORALLY ONCE A DAY WITH A MEAL TAKING CALCIUM 600 + D 600-400 MG-UNIT TABLET 1 TABLET ORALLY ONCE A DAY TAKING GLUCOSAMINE CHONDRO COMPLEX DAILY NOT-TAKING ATORVASTATIN CALCIUM 10 MG TABLET 1 TABLET ORALLY ONCE A DAY, NOTES: DUPLICATE NOT-TAKING SYNTHROID 25 MCG TABLET 1 TABLET EVERY MORNING ON AN EMPTY STOMACH ORALLY ONCE A DAY, NOTES: DUPLICATE NOT-TAKING DULOXETINE HCL 60 MG CAPSULE DELAYED RELEASE PARTICLES 1 CAPSULE ORALLY ONCE A DAY, NOTES: DUPLICATE NOT-TAKING COLACE 100 MG CAPSULE 1 CAPSULE NEEDED ORALLY BID MEDICATION LIST REVIEWED AND RECONCILED WITH THE PATIENT PAST MEDICAL HISTORY HYPERLIPIDEMIA HYPOTHYROIDISM OSTEOARTHRITIS ALLERGIC RHINITIS ESOPHAGEAL REFLUX DRY EYES ANXIETY TINNITUS - EVALUATED AT AUDIOLOGY AND ENT ALLERGIC RHINITIS OSTEOPENIA - SPINE, DEXA 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 2 SON(S) , 2 DAUGHTER(S) . BROTHER - , GRAND MAL SEIZURES\\\\\\\\NBROTHER - HEART DISEASE\\\\\\\\NDAUGHTER - RHEUMATOID ARTHRITIS. SOCIAL HISTORY GENERAL: TOBACCO USE ARE YOU A:NONSMOKER NEVER SMOKER HIV / HEP-C SCREENING HIV TEST OFFERED TO PATIENT:NO HEP-C TEST OFFERED TO PATIENT:NO OTHERS AT HOME: SPOUSE. EDUCATION LEVEL OF EDUCATION:HIGH SCHOOL DIET: NO HX EATING DISORDERS, LOW FAT, LOW CHOLESTEROL, NO ADDED SALT. LANGUAGE LANGUAGES SPOKEN:[place]IZEN OF [place] AND [place] DOMESTIC VIOLENCE DENIES SEXUAL, PHYSICAL ABUSE, VERBAL ABUSE. BMI CARE GOAL FOLLOW-UP ABOVE NORMAL BMI FOLLOW-UPGIVING ENCOURAGEMENT TO EXERCISE RECREATIONAL DRUG USE DENIES. EXERCISE: DAILY, WALKS, FARMS, GARDENS. LEARNING BARRIERS / SPECIAL NEEDS CHANGE FROM LAST VISIT?NO BARRIERS TO LEARNING?NO HEARING IMPAIRED?NO VISION IMPAIRED?YES COGNITIVELY IMPAIRED?NO :CORRECTIVE LENSES READINESS TO LEARN?YES LEARNING PREFERENCES?YES :TAPES/VIDEOS, BOOKLETS, HANDOUTS LEARNING CAPABILITIES PRESENT?YES EMOTIONAL BARRIERS?NO SPECIAL DEVICES?NO HEDDLE MACHINE OPERATOR NEEDED?NO PAIN CLINIC PFS, CLERGY, PUBLIC HEALTH REFERRALS HAS THE PATIENT BEEN EDUCATED REGARDING HIS/HER PLAN OF CARE?YES HAS THE PATIENT BEEN EDUCATED REGARDING PAIN, THE RISK FOR PAIN, THE IMPORTANCE OF EFFECTIVE PAIN MANAGEMENT, AND THE PAIN ASSESSMENT PROCESS?YES LATEX QUESTIONNAIRE LATEX ALLERGY : HAVE YOU EVER DEVELOPED ANY TYPE OF REACTION AFTER HANDLING LATEX PRODUCTS SUCH RUBBER GLOVES, CONDOMS, DIAPHRAGMS, BALLOONS, SOCKS, OR UNDERWEAR?NO LATEX ALLERGY : HAVE YOU EVER DEVELOPED ANY TYPE OF REACTION DURING OR AFTER DENTAL APPOINTMENT, VAGINAL/RECTAL EXAMINATION, SURGICAL PROCEDURE, OR ANY OTHER EXPOSURE?NO LATEX RISK : HAVE YOU EVER HAD ANY DIFFICULTY BREATHING OR HIVES AFTER EATING OR HANDLING ANY FRUITS, OR VEGETABLES; SUCH KIWI, BANANAS, STONE FRUITS, OR CHESTNUTSNO LATEX RISK : DO YOU HAVE A PREVIOUS PERSONAL HISTORY OF MORE THAN NINE SURGERIES, SPINA BIFIDA, OR REPEATED CATHERIZATIONS? NO LATEX RISK : ARE YOU FREQUENTLY EXPOSED TO LATEX PRODUCTS IN YOUR OCCUPATION?NO DATE ASKED : 08/17/2019 CAFFEINE 2/DAY COFFEE, PLUS HERBAL TEA. ADVANCE DIRECTIVE ADVANCE DIRECTIVE DISCUSSED WITH PATIENT:YES HCP - JENNI SOLIS (DAUGHTER) EVANGELICAL EVANGELICAL NO QUAKER BELIEFS THAT WOULD IMPACT HEALTH CARE. MARITAL STATUS: (SPOUSE NOW RETIRED). 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 SEXUAL HX HAD SEX IN THE LAST 12 MONTHS (VAGINAL, ORAL, OR ANAL)?NO HAVE YOU EVER HAD AN STD?NO REVIEWED WITH PATIENT 10/11/18 1514 JSREVIEWED WITH PATIENT 12/21/18 1535 JSREVIEWED WITH PT 03/22/19 1349 BVREVIEWED WITH PATIENT 06/23/19 1320 LASREVIEWED WITH PATIENT 09/14/19 1325 JS. HOSPITALIZATION/MAJOR DIAGNOSTIC PROCEDURE SURGERIES REVIEW OF SYSTEMS REVIEWED BY: PROVIDER: LELA REES-Rex . CONSTITUTIONAL: ANY CHANGE IN YOUR MEDICAL CONDITION? YES, ARTHRITIS IN BILATERAL KNEES . CHILLS NO . FEVER NO . INFECTION: DO YOU HAVE NEW INFECTIONS? NO . DO YOU HAVE HISTORY OF MRSA? NO . MUSCULOSKELETAL: ANY NEW PATTERNS OF PAIN OR NUMBNESS? YES, STATES PAIN HAS INCREASED IN RIGHT HAND . GASTROENTEROLOGY: ANY NEW CHANGE IN BOWEL CONTROL? YES, STATES LOOSE BOWEL MOVEMENTS OFTEN . GENITOURINARY: ANY NEW CHANGE IN BLADDER CONTROL? NO . IS THERE A CHANCE YOU COULD BE ? NO . HEMATOLOGY/LYMPH: DO YOU TAKE ANY BLOOD THINNERS? (FOR EXAMPLE- COUMADIN, PLAVIX, AGGRENOX, PLATEL, PRADAXA, OR XARELTO) NO . WHEN WAS YOUR LAST DOSE? DATE: TIME: . NEUROLOGY: HAVE YOU FALLEN IN THE PAST 12 MONTHS? YES, STATES 2 FALLS THIS PAST DECEMBER, DISCUSSED AT PREVIOUS VISIT . ANY NEW EXTREMITY NUMBNESS OR WEAKNESS? YES, STATES WEAKNESS IN LEFT LEG - USES A CANE TO ASSIST HER . CARDIOLOGY: DO YOU HAVE A PACEMAKER OR DEFIBRILLATOR? NO . RESPIRATORY: HAVE YOU BEEN SICK IN THE PAST WEEK? NO . FEVER NO . FLU LIKE SYMPTOMS? NO . COUGH NO . INTEGUMENTARY: DO YOU HAVE ANY RASHES OR OPEN SORES? NO . ALLERGIC/IMMUNO: ARE YOU ALLERGIC TO IV DYE? NO . ANY NEW ALLERGIES? NO . PSYCHIATRIC: DO YOU HAVE THOUGHTS OF HURTING YOURSELF OR SOMEONE ELSE? NO . ARE YOU ABUSED, NEGLECTED, OR IN AN UNSAFE ENVIRONMENT? NO . ENDOCRINOLOGY: ARE YOU DIABETIC? NO . OTHER: DO YOU NEED ANY PRESCRIPTIONS? NO . IF YES, PLEASE LIST: ____ . ANY NEW PROBLEMS WITH YOUR MEDICATIONS? NO . WHEN DID YOU LAST EAT? ____ . WHEN DID YOU LAST DRINK? ____ . WHAT DID YOU LAST DRINK? ____ . NAME OF PERSON DRIVING YOU HOME? ____ . DO YOU HAVE ANY OTHER QUESTIONS OR CONCERNS FLU VACCINE 07/29/19. ALSO STATES SHE HAS BEEN SEEING AND ORTHO DOCTOR . VITAL SIGNS WT 178.8 LBS, HT 62.25 IN, BMI 32.44 INDEX, BP 173/74 MM HG, REPEAT BP 158/82 MANUAL, HR 87 /MIN, RR 16 /MIN, TEMP 98.3 F, OXYGEN SAT % 96, SAFE IN ENV? (Y/N) YES, REVIEWED BY: MONTY. EXAMINATION GENERAL EXAMINATION: GENERALNO ACUTE DISTRESS, WELL NOURISHED AND HYDRATED. PSYCHAPPROPRIATE MOOD AND AFFECT . LUNGS:CLEAR TO AUSCULTATION BILATERALLY, NO WHEEZES, RHONCHI, RALES. HEART:NO MURMURS, REGULAR RATE AND RHYTHM. ASSESSMENTS LUMBAR FACET ARTHROPATHY - M46.96 (PRIMARY) TREATMENT LUMBAR FACET ARTHROPATHY STOP MELOXICAM TABLET, 7.5 MG, 1 TABLET, ORALLY, BID START DICLOFENAC SODIUM TABLET DELAYED RELEASE, 50 MG, 1 TABLET WITH FOOD OR MILK, ORALLY, THREE TIMES A DAY, 30 DAY(S), 90 CLINICAL NOTES: 78-YEAR-OLD FEMALE IN FOR CHRONIC PAIN FOLLOW-UP. GIVEN PRESENTING SYMPTOMS AND RESULTS OF PHYSICAL EXAMINATION RECOMMENDED STOPPING MELOXICAM AND STARTING DICLOFENAC SODIUM 50 MG 3 TIMES A DAY NEEDED FOR PAIN. SHE WAS ENCOURAGED NOT TO TAKE OTHER NSAIDS WHILE ON THIS MEDICATION AND TO TAKE WITH FOOD. PATIENT HAS EXPRESSED UNDERSTANDING OF AND WAS IN AGREEMENT WITH TREATMENT PLAN. GIVEN TIME TO ASK QUESTIONS AND EXPRESS CONCERNS. PREVENTIVE MEDICINE PAIN CLINIC TEACHING: MEDICATIONS PRINTED AND REVIEWED INFORMATION ON NEW MEDICATION, DICLOFENAC, WITH PATIENT. INSTRUCTED PATIENT TO CALL US IF SHE EXPERIENCES ANY PROBLEMS WITH THIS MEDICATION. PATIENT VERBALIZED AN UNDERSTANDING. KODAK COON 09/14/2019 1:55:37 PM > . PROCEDURE CODES FA211 ESTABILISHED PATIENT [facility] CHARGE DISPOSITION & COMMUNICATION FOLLOW UP 2 MONTHS (REASON: LOW BACK PAIN) ELECTRONICALLY SIGNED BY NEGRITA CHAVEZ ON 09/15/2019 AT 11:09 AM EST DISCLAIMER : THIS IS A VISIT SUMMARY EXTRACTED FROM THE [employer] CHART. IT IS NOT A COPY OF THE [employer] PROGRESS NOTE. JEREMIAH
== END ==
LOC: M PAIN 13:00
PROVIDERS: ATTEND Family Medicine
DX: M46.96 Unspecified inflammatory spondylopathy, lumbar region (principal)

== ENCOUNTER → 2019-11-03 | Outpatient (REF) | payer MEDICARE ==
[2019-11-03 14:00] LABS: CHOLESTEROL RISK RATIO 3.936 (<5)
== END ==
LOC: M SFHCPLAZ 09:39
PROVIDERS: ATTEND Nurse Practitioner Family
DX: E78.2 Mixed hyperlipidemia (principal)

== ENCOUNTER → 2019-11-14 | Outpatient (REF) | payer MEDICARE ==
[2019-11-14 11:42] LABS: BASO % 0.6 % (0.0-1.0); EOS # 0.1 10^3/uL (0.0-0.5); EOS % 1.9 % (0.0-3.0); HEMATOCRIT 38.2 % (36.0-47.0); HEMOGLOBIN 12.3 g/dl (12.0-15.5); LYMPH # 1.5 10^3/uL (1.5-5.0); LYMPH % 21.3 % (24.0-44.0); MEAN CORPUSCULAR HEMOGLOBIN 29.6 pg (27.0-33.0); MEAN CORPUSCULAR HGB CONC 32.2 g/dl (32.0-36.5); MONO # 0.6 10^3/uL (0.0-0.8); MONO % 8.4 % (0.0-5.0); NEUTROPHILS # 4.7 10^3/uL (1.5-8.5); NEUTROPHILS % 67.4 % (36.0-66.0); PLATELET COUNT, AUTOMATED 296 10^3/uL (150-450); RED BLOOD COUNT 4.15 10^6/uL (4.00-5.40); WHITE BLOOD COUNT 6.9 10^3/uL (4.0-10.0)
[2019-11-14 12:09] LABS: BLOOD UREA NITROGEN 15 MG/DL (7-18); CALCIUM LEVEL 9.1 MG/DL (8.8-10.2); CARBON DIOXIDE LEVEL 29 MEQ/L (21-32); CHLORIDE LEVEL 102 MEQ/L (98-107); CREATININE FOR GFR 0.68 MG/DL (0.55-1.30); GLOMERULAR FILTRATION RATE > 60.0 (>39); GLUCOSE, FASTING 90 MG/DL (70-100); SODIUM LEVEL 138 MEQ/L (136-145)
== END ==
LOC: M SFHCPLAZ 09:17
PROVIDERS: ATTEND Nurse Practitioner Family
DX: R19.7 Diarrhea, unspecified (principal)
CPT/HCPCS: 36415; 80048; 82270; 85025; 87507; G0463

== ENCOUNTER → 2019-11-29 | Outpatient (CLI) | payer MEDICARE ==
--- NOTE | 2019-12-01 01:11 | ECWPNPC ---
PATIENT NAME: KAMALA REEDER : 1940 GENDER: FEMALE VISIT DATE: 11/29/2019 DISCHARGE DATE: 11/29/19 1352 VISIT LOCKED DATE TIME: PHYSICIAN: CATHERINE NICOLE RESOURCE: CATHERINE NICOLE REASON FOR APPOINTMENT 1. WELLCARE-LOW BACK PAIN HISTORY OF PRESENT ILLNESS HISTORY OF PRESENT ILLNESS: PAIN THE PATIENT DESCRIBES THE PAIN... 79-YEAR-OLD FEMALE IN FOR CHRONIC PAIN FOLLOW-UP. SHE RATES HER PAIN CURRENTLY AT A 2 OUT OF 10 AND DESCRIBES IT SHARP. AT LAST CLINIC VISIT SHE WAS STARTED ON DICLOFENAC AND SHE DOES ADMIT THAT THIS APPEARS TO BE HELPING. FALL RISK SCREENING: SCREENING :NO FALLS REPORTED IN THE LAST YEAR CURRENT MEDICATIONS TAKING ATORVASTATIN CALCIUM 10 MG TABLET 1 TABLET ORALLY ONCE A DAY TAKING NEXIUM 40 MG CAPSULE DELAYED RELEASE 1 CAPSULE ORALLY DAILY TAKING SYSTANE 0.4-0.3 % SOLUTION 1 DROP INTO AFFECTED EYE NEEDED OPHTHALMIC 2-3 TIMES DAILY TAKING LUTEIN 6 MG CAPSULE 1 CAPSULE WITH A MEAL ORALLY ONCE A DAY TAKING PAZEO 0.7 % SOLUTION 1 DROP INTO AFFECTED EYE OPHTHALMIC ONCE A DAY TAKING VOLTAREN 1 % GEL 4GM EXTERNALLY Q8H PRN TO LOW BACK TAKING SYNTHROID 25 MCG TABLET 1 TABLET EVERY MORNING ON AN EMPTY STOMACH ORALLY ONCE A DAY TAKING DULOXETINE HCL 60 MG CAPSULE DELAYED RELEASE PARTICLES 1 CAPSULE ORALLY ONCE A DAY TAKING VITAMIN D 1000 UNIT TABLET 2 TABS ORALLY ONCE A DAY WITH A MEAL TAKING CALCIUM 600 + D 600-400 MG-UNIT TABLET 1 TABLET ORALLY ONCE A DAY TAKING GLUCOSAMINE CHONDRO COMPLEX DAILY TAKING LOSARTAN POTASSIUM 50 MG TABLET 1 TABLET ORALLY ONCE A DAY TAKING GABAPENTIN 100 MG CAPSULE 2 CAPSULES ORALLY THREE TIMES PER DAY NOT-TAKING ATORVASTATIN CALCIUM 10 MG TABLET 1 TABLET ORALLY ONCE A DAY, NOTES: DUPLICATE NOT-TAKING DICLOFENAC SODIUM 50 MG TABLET DELAYED RELEASE 1 TABLET WITH FOOD OR MILK ORALLY THREE TIMES A DAY, NOTES: STOPPED NOT-TAKING SYNTHROID 25 MCG TABLET 1 TABLET EVERY MORNING ON AN EMPTY STOMACH ORALLY ONCE A DAY, NOTES: DUPLICATE NOT-TAKING COLACE 100 MG CAPSULE 1 CAPSULE NEEDED ORALLY BID MEDICATION LIST REVIEWED AND RECONCILED WITH THE PATIENT PAST MEDICAL HISTORY HYPERLIPIDEMIA HYPOTHYROIDISM OSTEOARTHRITIS ALLERGIC RHINITIS ESOPHAGEAL REFLUX DRY EYES ANXIETY TINNITUS - EVALUATED AT AUDIOLOGY AND ENT ALLERGIC RHINITIS OSTEOPENIA - SPINE, DEXA 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 2 SON(S) , 2 DAUGHTER(S) . BROTHER - , GRAND MAL SEIZURES\\\\\\\\NBROTHER - HEART DISEASE\\\\\\\\NDAUGHTER - RHEUMATOID ARTHRITIS. SOCIAL HISTORY GENERAL: TOBACCO USE ARE YOU A:NONSMOKER NEVER SMOKER HIV / HEP-C SCREENING HIV TEST OFFERED TO PATIENT:NO HEP-C TEST OFFERED TO PATIENT:NO OTHERS AT HOME: SPOUSE. EDUCATION LEVEL OF EDUCATION:HIGH SCHOOL DIET: NO HX EATING DISORDERS, LOW FAT, LOW CHOLESTEROL, NO ADDED SALT. LANGUAGE LANGUAGES SPOKEN:BELARUSIAN DOMESTIC VIOLENCE DENIES SEXUAL, PHYSICAL ABUSE, VERBAL ABUSE. BMI CARE GOAL FOLLOW-UP ABOVE NORMAL BMI FOLLOW-UPGIVING ENCOURAGEMENT TO EXERCISE RECREATIONAL DRUG USE DENIES. EXERCISE: DAILY, WALKS, FARMS, GARDENS. LEARNING BARRIERS / SPECIAL NEEDS CHANGE FROM LAST VISIT?NO BARRIERS TO LEARNING?NO HEARING IMPAIRED?NO VISION IMPAIRED?YES COGNITIVELY IMPAIRED?NO :CORRECTIVE LENSES READINESS TO LEARN?YES LEARNING PREFERENCES?YES :TAPES/VIDEOS, BOOKLETS, HANDOUTS LEARNING CAPABILITIES PRESENT?YES EMOTIONAL BARRIERS?NO SPECIAL DEVICES?NO INSTRUMENT SHOP SUPERVISOR NEEDED?NO PAIN CLINIC PFS, CLERGY, PUBLIC HEALTH REFERRALS HAS THE PATIENT BEEN EDUCATED REGARDING HIS/HER PLAN OF CARE?YES HAS THE PATIENT BEEN EDUCATED REGARDING PAIN, THE RISK FOR PAIN, THE IMPORTANCE OF EFFECTIVE PAIN MANAGEMENT, AND THE PAIN ASSESSMENT PROCESS?YES LATEX QUESTIONNAIRE LATEX ALLERGY : HAVE YOU EVER DEVELOPED ANY TYPE OF REACTION AFTER HANDLING LATEX PRODUCTS SUCH RUBBER GLOVES, CONDOMS, DIAPHRAGMS, BALLOONS, SOCKS, OR UNDERWEAR?NO LATEX ALLERGY : HAVE YOU EVER DEVELOPED ANY TYPE OF REACTION DURING OR AFTER DENTAL APPOINTMENT, VAGINAL/RECTAL EXAMINATION, SURGICAL PROCEDURE, OR ANY OTHER EXPOSURE?NO DATE ASKED : 08/17/2019 LATEX RISK : HAVE YOU EVER HAD ANY DIFFICULTY BREATHING OR HIVES AFTER EATING OR HANDLING ANY FRUITS, OR VEGETABLES; SUCH KIWI, BANANAS, STONE FRUITS, OR CHESTNUTSNO LATEX RISK : DO YOU HAVE A PREVIOUS PERSONAL HISTORY OF MORE THAN NINE SURGERIES, SPINA BIFIDA, OR REPEATED CATHERIZATIONS? NO LATEX RISK : ARE YOU FREQUENTLY EXPOSED TO LATEX PRODUCTS IN YOUR OCCUPATION?NO CAFFEINE 2/DAY COFFEE, PLUS HERBAL TEA. ADVANCE DIRECTIVE ADVANCE DIRECTIVE DISCUSSED WITH PATIENT:YES HCP - JENNI SOLIS (DAUGHTER) SIKH SIKH NO ORIENTAL ORTHODOX BELIEFS THAT WOULD IMPACT HEALTH CARE. MARITAL STATUS: (SPOUSE NOW RETIRED). 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 SEXUAL HX HAD SEX IN THE LAST 12 MONTHS (VAGINAL, ORAL, OR ANAL)?NO HAVE YOU EVER HAD AN STD?NO REVIEWED WITH PATIENT 10/11/18 1514 JSREVIEWED WITH PATIENT 12/21/18 1535 JSREVIEWED WITH PT 03/22/19 1349 BVREVIEWED WITH PATIENT 06/23/19 1320 LASREVIEWED WITH PATIENT 09/14/19 1325 JS. HOSPITALIZATION/MAJOR DIAGNOSTIC PROCEDURE SURGERIES REVIEW OF SYSTEMS REVIEWED BY: PROVIDER: LELA DAMIAN . CONSTITUTIONAL: ANY CHANGE IN YOUR MEDICAL CONDITION? NO . CHILLS NO . FEVER NO . INFECTION: DO YOU HAVE NEW INFECTIONS? NO . DO YOU HAVE HISTORY OF MRSA? NO . MUSCULOSKELETAL: ANY NEW PATTERNS OF PAIN OR NUMBNESS? NO . GASTROENTEROLOGY: ANY NEW CHANGE IN BOWEL CONTROL? YES, DIARRHEA . GENITOURINARY: ANY NEW CHANGE IN BLADDER CONTROL? NO . IS THERE A CHANCE YOU COULD BE ? NO . HEMATOLOGY/LYMPH: DO YOU TAKE ANY BLOOD THINNERS? (FOR EXAMPLE- COUMADIN, PLAVIX, AGGRENOX, PLATEL, PRADAXA, OR XARELTO) NO . WHEN WAS YOUR LAST DOSE? DATE: TIME: . NEUROLOGY: HAVE YOU FALLEN IN THE PAST 12 MONTHS? YES . ANY NEW EXTREMITY NUMBNESS OR WEAKNESS? NO . CARDIOLOGY: DO YOU HAVE A PACEMAKER OR DEFIBRILLATOR? NO . RESPIRATORY: HAVE YOU BEEN SICK IN THE PAST WEEK? NO . FEVER NO . FLU LIKE SYMPTOMS? NO . COUGH NO . INTEGUMENTARY: DO YOU HAVE ANY RASHES OR OPEN SORES? NO . ALLERGIC/IMMUNO: ARE YOU ALLERGIC TO IV DYE? NO . ANY NEW ALLERGIES? NO . PSYCHIATRIC: DO YOU HAVE THOUGHTS OF HURTING YOURSELF OR SOMEONE ELSE? NO . ARE YOU ABUSED, NEGLECTED, OR IN AN UNSAFE ENVIRONMENT? NO . ENDOCRINOLOGY: ARE YOU DIABETIC? NO . OTHER: DO YOU NEED ANY PRESCRIPTIONS? YES, JAIRO . IF YES, PLEASE LIST: ____ . ANY NEW PROBLEMS WITH YOUR MEDICATIONS? NO . WHEN DID YOU LAST EAT? ____ . WHEN DID YOU LAST DRINK? ____ . WHAT DID YOU LAST DRINK? ____ . NAME OF PERSON DRIVING YOU HOME? ____ . DO YOU HAVE ANY OTHER QUESTIONS OR CONCERNS PT STATES SHE THINKS DULOXETINE IS CAUSEING DIARRHEA . VITAL SIGNS WT 173.8 LBS, HT 62.25 IN, BMI 31.53 INDEX, BP 197/86 MM HG, HR 77 /MIN, RR 18 /MIN, TEMP 98.4 F, OXYGEN SAT % 93%, NA INITIALS AW 1322, REVIEWED BY: EM. EXAMINATION GENERAL EXAMINATION: GENERALNO ACUTE DISTRESS, WELL NOURISHED AND HYDRATED. PSYCHAPPROPRIATE MOOD AND AFFECT . LUNGS:CLEAR TO AUSCULTATION BILATERALLY, NO WHEEZES, RHONCHI, RALES. HEART:NO MURMURS, REGULAR RATE AND RHYTHM. ASSESSMENTS LUMBAR FACET ARTHROPATHY - M46.96 (PRIMARY) TREATMENT LUMBAR FACET ARTHROPATHY REFILL GABAPENTIN CAPSULE, 100 MG, 2 CAPSULES, ORALLY, THREE TIMES PER DAY, 30 DAYS, 180 CLINICAL NOTES: 79-YEAR-OLD FEMALE IN FOR CHRONIC PAIN FOLLOW-UP. GIVEN PRESENTING SYMPTOMS AND RESULTS OF PHYSICAL EXAMINATION RECOMMEND FOLLOW-UP IN 2 MONTHS. PATIENT HAS EXPRESSED UNDERSTANDING OF AND WAS IN AGREEMENT WITH TREATMENT PLAN. GIVEN TIME TO ASK QUESTIONS AND EXPRESS CONCERNS. PROCEDURE CODES FA211 ESTABILISHED PATIENT [facility] CHARGE DISPOSITION & COMMUNICATION FOLLOW UP 2 MONTHS (REASON: BACK PAIN) ELECTRONICALLY SIGNED BY NEGRITA CHAVEZ ON 11/30/2019 AT 09:00 AM EST DISCLAIMER : THIS IS A VISIT SUMMARY EXTRACTED FROM THE [employer] CHART. IT IS NOT A COPY OF THE [employer] PROGRESS NOTE. JEREMIAH
== END ==
LOC: M PAIN 13:15
PROVIDERS: ATTEND Family Medicine
DX: M46.96 Unspecified inflammatory spondylopathy, lumbar region (principal); G89.29 Other chronic pain; E78.5 Hyperlipidemia, unspecified; E03.9 Hypothyroidism, unspecified; Z86.59 Personal history of other mental and behavioral disorders; Z88.8 Allergy status to other drugs, medicaments and biological substances; Z79.899 Other long term (current) drug therapy

== ENCOUNTER → 2020-02-26 | Outpatient (CLI) | payer MEDICARE ==
[~2020-02-26] MED LIST changes: +CYMB60CA3 PO; +DICL1GEL3 TOP; +FLON1SPR; +GARL500C10 PO; +LOSA50TA88 PO; +OCUV1CAP4 PO; +PAZE1DRO OU; +VITAD1000T PO; +[UNRECOGNIZED DRUG - CODE] PO
--- NOTE | 2020-02-28 03:58 | ECWPNPC ---
PATIENT NAME: KAMALA REEDER : 1940 GENDER: FEMALE VISIT DATE: 02/26/2020 DISCHARGE DATE: 02/26/20 1333 VISIT LOCKED DATE TIME: PHYSICIAN: CATHERINE NICOLE RESOURCE: CATHERINE NICOLE REASON FOR APPOINTMENT 1. BACK PAIN. PAT COMPLETED HISTORY OF PRESENT ILLNESS HISTORY OF PRESENT ILLNESS: PAIN THE PATIENT DESCRIBES THE PAINDURING THE LAST MONTH SEVERITY - PAIN SCORE OF2/10 LOCATIONSLOWER BACK QUALITYACHING DURATIONCONTINUOUS, CONSTANT, ALL DAY PAIN IS INCREASED BY:ACTIVITIES, PROLONGED STANDING PAIN IS DECREASED BY:SITTING PERMISSION REQUESTED AND RECEIVED FROM PATIENT TO PERFORM TELEPHONE VISIT. 79-YEAR-OLD FEMALE IN FOR CHRONIC PAIN FOLLOW-UP. SHE RATES HER PAIN CURRENTLY AT A 2 OUT OF 10 AND DESCRIBES IT ACHING. SHE FEELS HER MEDICATIONS ARE HELPFUL AND DENIES MED SIDE EFFECTS AT THIS TIME. SHE DOES ADMIT TO INCREASED PAIN AT TIMES. FALL RISK SCREENING: SCREENING :ONE FALL WITHOUT INJURY IN THE PAST YEAR FELL IN THE SNOW IN SEPTEMBER CURRENT MEDICATIONS TAKING NEXIUM 40 MG CAPSULE DELAYED RELEASE 1 CAPSULE ORALLY DAILY TAKING SYSTANE 0.4-0.3 % SOLUTION 1 DROP INTO AFFECTED EYE NEEDED OPHTHALMIC 2-3 TIMES DAILY TAKING LUTEIN 6 MG CAPSULE 1 CAPSULE WITH A MEAL ORALLY ONCE A DAY TAKING PAZEO 0.7 % SOLUTION 1 DROP INTO AFFECTED EYE OPHTHALMIC ONCE A DAY TAKING VOLTAREN 1 % GEL 4GM EXTERNALLY Q8H PRN TO LOW BACK TAKING VITAMIN D 1000 UNIT TABLET 2 TABS ORALLY ONCE A DAY WITH A MEAL TAKING CALCIUM 600 + D 600-400 MG-UNIT TABLET 1 TABLET ORALLY ONCE A DAY TAKING GLUCOSAMINE CHONDRO COMPLEX DAILY TAKING LOSARTAN POTASSIUM 50 MG TABLET 1 TABLET ORALLY ONCE A DAY TAKING DULOXETINE HCL 60 MG CAPSULE DELAYED RELEASE PARTICLES 1 CAPSULE ORALLY ONCE A DAY TAKING SYNTHROID 25 MCG TABLET 1 TABLET EVERY MORNING ON AN EMPTY STOMACH ORALLY ONCE A DAY TAKING ATORVASTATIN CALCIUM 10 MG TABLET 1 TABLET ORALLY ONCE A DAY TAKING DICLOFENAC SODIUM 50 MG TABLET DELAYED RELEASE 1 TABLET WITH FOOD OR MILK ORALLY THREE TIMES A DAY, NOTES: STOPPED TAKING GABAPENTIN 100 MG CAPSULE 2 CAPSULES ORALLY THREE TIMES PER DAY NOT-TAKING COLACE 100 MG CAPSULE 1 CAPSULE NEEDED ORALLY BID MEDICATION LIST REVIEWED AND RECONCILED WITH THE PATIENT PAST MEDICAL HISTORY HYPERLIPIDEMIA HYPOTHYROIDISM OSTEOARTHRITIS ALLERGIC RHINITIS ESOPHAGEAL REFLUX DRY EYES ANXIETY TINNITUS - EVALUATED AT AUDIOLOGY AND ENT ALLERGIC RHINITIS OSTEOPENIA - SPINE, DEXA 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 2 SON(S) , 2 DAUGHTER(S) . BROTHER - , GRAND MAL SEIZURES\\\\\\\\NBROTHER - HEART DISEASE\\\\\\\\NDAUGHTER - RHEUMATOID ARTHRITIS. SOCIAL HISTORY GENERAL: TOBACCO USE ARE YOU A:NONSMOKER NEVER SMOKER LATEX QUESTIONNAIRE LATEX ALLERGY : HAVE YOU EVER DEVELOPED ANY TYPE OF REACTION AFTER HANDLING LATEX PRODUCTS SUCH RUBBER GLOVES, CONDOMS, DIAPHRAGMS, BALLOONS, SOCKS, OR UNDERWEAR?NO LATEX ALLERGY : HAVE YOU EVER DEVELOPED ANY TYPE OF REACTION DURING OR AFTER DENTAL APPOINTMENT, VAGINAL/RECTAL EXAMINATION, SURGICAL PROCEDURE, OR ANY OTHER EXPOSURE?NO LATEX RISK : HAVE YOU EVER HAD ANY DIFFICULTY BREATHING OR HIVES AFTER EATING OR HANDLING ANY FRUITS, OR VEGETABLES; SUCH KIWI, BANANAS, STONE FRUITS, OR CHESTNUTSNO LATEX RISK : DO YOU HAVE A PREVIOUS PERSONAL HISTORY OF MORE THAN NINE SURGERIES, SPINA BIFIDA, OR REPEATED CATHERIZATIONS? NO LATEX RISK : ARE YOU FREQUENTLY EXPOSED TO LATEX PRODUCTS IN YOUR OCCUPATION?NO DATE ASKED : 02/26/2020 BMI CARE GOAL FOLLOW-UP ABOVE NORMAL BMI FOLLOW-UPGIVING ENCOURAGEMENT TO EXERCISE ALCOHOL SCREENING DID YOU HAVE A DRINK CONTAINING ALCOHOL IN THE PAST YEAR?NO POINTS0 INTERPRETATIONNEGATIVE RECREATIONAL DRUG USE DENIES. CAFFEINE 2/DAY COFFEE, PLUS HERBAL TEA. SEXUAL HX HAD SEX IN THE LAST 12 MONTHS (VAGINAL, ORAL, OR ANAL)?NO HAVE YOU EVER HAD AN STD?NO HIV / HEP-C SCREENING HIV TEST OFFERED TO PATIENT:NO HEP-C TEST OFFERED TO PATIENT:NO CAODAISM CAODAISM NO RESTORATION BELIEFS THAT WOULD IMPACT HEALTH CARE. LANGUAGE LANGUAGES SPOKEN:[place] EDUCATION LEVEL OF EDUCATION:HIGH SCHOOL LEARNING BARRIERS / SPECIAL NEEDS CHANGE FROM LAST VISIT?NO BARRIERS TO LEARNING?NO HEARING IMPAIRED?NO VISION IMPAIRED?YES COGNITIVELY IMPAIRED?NO :CORRECTIVE LENSES READINESS TO LEARN?YES LEARNING PREFERENCES?YES :TAPES/VIDEOS, BOOKLETS, HANDOUTS LEARNING CAPABILITIES PRESENT?YES EMOTIONAL BARRIERS?NO SPECIAL DEVICES?NO CLINICAL BUSINESS ANALYST NEEDED?NO DOMESTIC VIOLENCE DENIES SEXUAL, PHYSICAL ABUSE, VERBAL ABUSE. 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 DIET: NO HX EATING DISORDERS, LOW FAT, LOW CHOLESTEROL, NO ADDED SALT. EXERCISE: DAILY, WALKS, FARMS, GARDENS. MARITAL STATUS: (SPOUSE NOW RETIRED). OTHERS AT HOME: SPOUSE. NEW PATIENT PAIN DIARY TODAY'S VISITNOTES PATIENT DESCRIBES PAIN :ACHING, HAVE IT ALL THE TIME FROM 0-10, WHAT LEVEL IS YOUR PAIN TODAY?2 PRECIPITATING FACTORS ACTIVITIES, WALKING ALLEVIATING FACTORS SITTING PAIN CLINIC PFS, CLERGY, PUBLIC HEALTH REFERRALS HAS THE PATIENT BEEN EDUCATED REGARDING HIS/HER PLAN OF CARE?YES HAS THE PATIENT BEEN EDUCATED REGARDING PAIN, THE RISK FOR PAIN, THE IMPORTANCE OF EFFECTIVE PAIN MANAGEMENT, AND THE PAIN ASSESSMENT PROCESS?YES ADVANCE DIRECTIVE ADVANCE DIRECTIVE DISCUSSED WITH PATIENT:YES HCP - JENNI WILL (DAUGHTER) HOSPITALIZATION/MAJOR DIAGNOSTIC PROCEDURE SURGERIES REVIEW OF SYSTEMS REVIEWED BY: PROVIDER: LELA REES-C . CONSTITUTIONAL: ANY CHANGE IN YOUR MEDICAL CONDITION? NO . CHILLS NO . FEVER NO . INFECTION: DO YOU HAVE NEW INFECTIONS? NO . DO YOU HAVE HISTORY OF MRSA? NO . MUSCULOSKELETAL: ANY NEW PATTERNS OF PAIN OR NUMBNESS? NO . GASTROENTEROLOGY: ANY NEW CHANGE IN BOWEL CONTROL? YES, FREQUENT DIARRHEA. COLONSCOPY ON THE 03/06/20 . GENITOURINARY: ANY NEW CHANGE IN BLADDER CONTROL? NO . IS THERE A CHANCE YOU COULD BE ? NO . HEMATOLOGY/LYMPH: DO YOU TAKE ANY BLOOD THINNERS? (FOR EXAMPLE- COUMADIN, PLAVIX, AGGRENOX, PLATEL, PRADAXA, OR XARELTO) NO . WHEN WAS YOUR LAST DOSE? DATE: TIME: . NEUROLOGY: HAVE YOU FALLEN IN THE PAST 12 MONTHS? YES, FELL IN SNOW IN SEPTEMBER WITH NO INJURY . ANY NEW EXTREMITY NUMBNESS OR WEAKNESS? NO . CARDIOLOGY: DO YOU HAVE A PACEMAKER OR DEFIBRILLATOR? NO . RESPIRATORY: HAVE YOU BEEN SICK IN THE PAST WEEK? NO . FEVER NO . FLU LIKE SYMPTOMS? NO . COUGH NO . INTEGUMENTARY: DO YOU HAVE ANY RASHES OR OPEN SORES? NO . ALLERGIC/IMMUNO: ARE YOU ALLERGIC TO IV DYE? NO . ANY NEW ALLERGIES? NO . PSYCHIATRIC: DO YOU HAVE THOUGHTS OF HURTING YOURSELF OR SOMEONE ELSE? NO . ARE YOU ABUSED, NEGLECTED, OR IN AN UNSAFE ENVIRONMENT? NO . ENDOCRINOLOGY: ARE YOU DIABETIC? NO . OTHER: DO YOU NEED ANY PRESCRIPTIONS? NO . IF YES, PLEASE LIST: ____ . ANY NEW PROBLEMS WITH YOUR MEDICATIONS? NO . WHEN DID YOU LAST EAT? ____ . WHEN DID YOU LAST DRINK? ____ . WHAT DID YOU LAST DRINK? ____ . NAME OF PERSON DRIVING YOU HOME? ____ . DO YOU HAVE ANY OTHER QUESTIONS OR CONCERNS NO . EXAMINATION GENERAL EXAMINATION: PSYCHAPPROPRIATE MOOD AND AFFECT , ORIENTED X 3. ASSESSMENTS LUMBAR FACET ARTHROPATHY - M46.96 (PRIMARY) TREATMENT LUMBAR FACET ARTHROPATHY REFILL GABAPENTIN CAPSULE, 300 MG, 1 CAPSULE, ORALLY, THREE TIMES PER DAY, 30 DAYS, 90, REFILLS 2 CLINICAL NOTES: 79-YEAR-OLD FEMALE IN FOR CHRONIC PAIN FOLLOW-UP. GIVEN PRESENTING SYMPTOMS RECOMMEND INCREASING GABAPENTIN TO 300 MG 3 TIMES A DAY WITH FOLLOW-UP IN 2 MONTHS TO DETERMINE EFFICACY OF TREATMENT. PATIENT DOES ADMIT TO A UPCOMING ORTHOPEDIC APPOINTMENTS TO DISCUSS POTENTIAL HIP REPLACEMENT. PATIENT HAS EXPRESSED UNDERSTANDING OF AND WAS IN AGREEMENT WITH TREATMENT PLAN. GIVEN TIME TO ASK QUESTIONS AND EXPRESS CONCERNS. DISPOSITION & COMMUNICATION FOLLOW UP 2 MONTHS (REASON: BACK PAIN) ELECTRONICALLY SIGNED BY NEGRITA CHAVEZ ON 02/27/2020 AT 03:14 PM EDT DISCLAIMER : THIS IS A VISIT SUMMARY EXTRACTED FROM THE [employer] CHART. IT IS NOT A COPY OF THE [employer] PROGRESS NOTE. JEREMIAH
== END ==
LOC: M PAIN 13:00
PROVIDERS: ATTEND Family Medicine
DX: M46.96 Unspecified inflammatory spondylopathy, lumbar region (principal); G89.29 Other chronic pain; E03.9 Hypothyroidism, unspecified; K21.9 Gastro-esophageal reflux disease without esophagitis; Z86.59 Personal history of other mental and behavioral disorders; Z96.641 Presence of right artificial hip joint; Z88.8 Allergy status to other drugs, medicaments and biological substances; Z79.899 Other long term (current) drug therapy

== ENCOUNTER → 2020-03-04 | Outpatient (CLI) | payer MEDICARE ==
[~2020-03-04] MED LIST changes: -GARL500C10 PO; +GARL500C2 PO
== END ==
LOC: M LABSMTC 09:59
PROVIDERS: ATTEND Anesthesiology
DX: Z01.818 Encounter for other preprocedural examination (principal); Z11.59 Encounter for screening for other viral diseases
CPT/HCPCS: C9803; U0002

== ENCOUNTER 2020-03-06 06:44 | Day surgery (SDC) | payer MEDICARE ==
[~2020-03-06] VITALS: Ht 157.5 cm; Wt 77.1 kg
[2020-03-06] MEDS: NS 1,000 ML IV ONE (07:00)
[2020-03-06] MEDS ORDERED: LIDOCAINE 2% 100MG/5ML SDV (FOR ANES.) As Ordered ONE (07:33)
[2020-03-06] MEDS ORDERED: propofoL 200 MG/20 ML VIAL As Ordered ONE ×2 (07:33→08:00)
--- NOTE | 2020-03-06 07:40 | ROOR ---
Patient Name: Kathi Lyaton Procedure Date: 03/06/2020 7:23 AM Date of : 1940 Age: 79 Room: [facility] Gender: Female Note Status: Finalized Procedure: Upper Endoscopy + Biopsies Indications: Epigastric abdominal pain, Heartburn Providers: Jerel Ledbetter MD Referring MD: Anne-Marie Najera NP Requesting Provider: Medicines: Monitored Anesthesia Care Complications: No immediate complications. Procedure: Pre-Anesthesia Assessment: - The heart rate, respiratory rate, oxygen saturations, blood pressure, adequacy of pulmonary ventilation, and response to care were monitored throughout the procedure. The Endoscope was introduced through the mouth, and advanced to the second part of duodenum. The upper GI endoscopy was accomplished without difficulty. The patient tolerated the procedure well. Findings: The Z-line was variable and was found 40 cm from the incisors. Multiple biopsies were obtained with cold forceps for evaluation to rule out Grady's Esophagus randomly at the gastroesophageal junction. A small hiatal hernia was present. No other significant abnormalities were identified in a careful examination of the stomach. Biopsies were taken with a cold forceps in the gastric antrum for Helicobacter pylori testing. The exam of the duodenum was otherwise normal. Biopsies for histology were taken with a cold forceps in the first portion of the duodenum for evaluation of celiac disease. The exam was otherwise without abnormality. Impression: - Z-line variable, 40 cm from the incisors. - Small hiatal hernia. - The examination was otherwise normal. - Multiple biopsies were obtained at the gastroesophageal junction. - Biopsies were taken with a cold forceps for Helicobacter pylori testing. - Biopsies were taken with a cold forceps for evaluation of celiac disease. - The examination was otherwise normal. Recommendation: - Patient has a contact number available for emergencies. The signs and symptoms of potential delayed complications were discussed with the patient. Return to normal activities tomorrow. Written discharge instructions were provided to the patient. - High fiber diet. - Discharge patient to home. - Follow an antireflux regimen. - Continue present medications. - Await pathology results. - Telephone GI clinic for pathology results in 1 week. - Return to referring physician. - The findings and recommendations were discussed with the patient's family. Jerel Ledbetter MD Jerel Ledbetter MD 03/06/2020 7:39:38 AM Electronically signed by Jerel Ledbetter MD Number of Addenda: 0 Note Initiated On: 03/06/2020 7:23 AM Estimated Blood Loss: Estimated blood loss: none.
--- NOTE | 2020-03-06 08:00 | ROOR ---
Patient Name: Kathi Layton Procedure Date: 03/06/2020 7:24 AM Date of : 1940 Age: 79 Room: [facility] Gender: Female Note Status: Finalized Procedure: Total Colonoscopy to Cecum + ileoscopy + Bx Indications: Clinically significant diarrhea of unexplained origin, Change in bowel habits Providers: Jerel Ledbetter MD Referring MD: Anne-Marie Najera NP Requesting Provider: Medicines: Monitored Anesthesia Care Complications: No immediate complications. Procedure: Pre-Anesthesia Assessment: - The heart rate, respiratory rate, oxygen saturations, blood pressure, adequacy of pulmonary ventilation, and response to care were monitored throughout the procedure. The Colonoscope was introduced through the anus and advanced to the terminal ileum, with identification of the appendiceal orifice and IC valve. The colonoscopy was performed without difficulty. The patient tolerated the procedure well. The quality of the bowel preparation was excellent. Findings: The perianal and digital rectal examinations were normal. Non-bleeding internal hemorrhoids were found during retroflexion. The hemorrhoids were small and Grade I (internal hemorrhoids that do not prolapse). No other significant abnormalities were identified in a careful examination of the remainder of the colon. The exam was otherwise without abnormality on direct and retroflexion views. The terminal ileum appeared normal. Biopsies for histology were taken with a cold forceps from the ascending colon, transverse colon, descending colon and rectosigmoid colon for evaluation of microscopic colitis. The exam was otherwise without abnormality on direct and retroflexion views. Impression: - Non-bleeding internal hemorrhoids. - The examination was otherwise normal on direct and retroflexion views. - The examined portion of the ileum was normal. - The examination was otherwise normal on direct and retroflexion views. - Biopsies were taken with a cold forceps from the ascending colon, transverse colon, descending colon and rectosigmoid colon for evaluation of microscopic colitis. - The exam was otherwise normal to the cecum. Recommendation: - Patient has a contact number available for emergencies. The signs and symptoms of potential delayed complications were discussed with the patient. Return to normal activities tomorrow. Written discharge instructions were provided to the patient. - High fiber diet. - Discharge patient to home. - Continue present medications. - Await pathology results. - Telephone GI clinic for pathology results in 1 week. - Repeat colonoscopy for symptoms only. - Return to referring physician. - The findings and recommendations were discussed with the patient's family. Jerel Ledbetter MD Jerel Ledbetter MD 03/06/2020 7:59:54 AM Electronically signed by Jerel Ledbetter MD Number of Addenda: 0 Note Initiated On: 03/06/2020 7:24 AM Estimated Blood Loss: Estimated blood loss: none.
[2020-03-06 08:25] VITALS: BP 199/86
== END 2020-03-06 08:44 | disposition home or self-care (01) ==
LOC: M OPP 06:44
PROVIDERS: ATTEND Internal Medicine Gastroenterology
DX: K64.0 First degree hemorrhoids (principal); R19.7 Diarrhea, unspecified; R19.4 Change in bowel habit; K22.8 Other specified diseases of esophagus; K44.9 Diaphragmatic hernia without obstruction or gangrene; K29.50 Unspecified chronic gastritis without bleeding; R10.13 Epigastric pain; K21.9 Gastro-esophageal reflux disease without esophagitis; E03.9 Hypothyroidism, unspecified; Z79.899 Other long term (current) drug therapy

== ENCOUNTER → 2020-04-29 | Outpatient (CLI) | payer MEDICARE ==
--- NOTE | 2020-05-01 04:33 | ECWPNPC ---
PATIENT NAME: KAMALA REEDER : 1940 GENDER: FEMALE VISIT DATE: 04/29/2020 DISCHARGE DATE: 04/29/20 1336 VISIT LOCKED DATE TIME: PHYSICIAN: CATHERINE NICOLE RESOURCE: CATHERINE NICOLE REASON FOR APPOINTMENT 1. BACK PAIN HISTORY OF PRESENT ILLNESS GENERAL: - 79-YEAR-OLD FEMALE IN FOR CHRONIC PAIN FOLLOW-UP. SHE RATES HER PAIN CURRENTLY AT A 3 OUT OF 10 AND DESCRIBES IT ACHING. SHE FEELS HER MEDICATIONS ARE HELPFUL. FALL RISK SCREENING: SCREENING :NO FALLS REPORTED IN THE LAST YEAR PAIN SCREENING: PATIENT HAS A COMPLAINT OF ACUTE OR CHRONIC PAIN :YES LOCATION OF PAIN:LOW BACK INTENSITY OF PAIN (SCALE OF 1 TO 10):3 WHAT DOES YOUR PAIN FEEL LIKE:ACHING DURATION:CONTINOUS, CONSTANT, ALL DAY PAIN IS INCREASED BY:ACTIVITIES, PROLONGED STANDING PAIN IS DECREASED BY:USE OF PAIN MEDICATIONS PAIN HAS INTERFERED WITH THE FOLLOWING:MOOD, HOUSEWORK, RELATIONSHIP WITH OTHERS, ENJOYMENT OF LIFE PLAN/GOALS/TREATMENT/INTERVENTION/FOLLOW UP:SEE PLAN NURSING NOTE: -. PAIN CENTER INTAKE QUESTIONS: DO YOU HAVE A HISTORY OF MRSA? :NO DO YOU TAKE A BLOOD THINNERS? :NO DO YOU HAVE ANY BLEEDING DISORDERS? :NO ANY NEW NUMBNESS OR WEAKNESS IN YOUR LEGS OR ARMS? :NO ANY PACEMAKER,DEFIBRILLATOR, OR DORSAL COLUMN STIMULATOR? :NO DO YOU HAVE ANY RASHES OR OPEN SORES? :NO ARE YOU ALLERGIC TO IV DYE? :NO ARE YOU DIABETIC? :NO ANY NEW PROBLEMS WITH YOUR MEDICATIONS? :NO HAVE YOU RECEIVED A VACCINE IN THE PAST 30 DAYS? :NO DO YOU PLAN TO RECEIVE A VACCINE IN THE NEXT 21 DAYS? :NO DO YOU NEED ANY PRESCRIPTION? :YES VOLTAREN GEL DO YOU TAKE ANY IMMUNOSUPPRESSIVE MEDICATIONS? :NO IS THERE A CHANCE YOU COULD BE ? :NO ARE YOU BREAST FEEDING? :NO CURRENT MEDICATIONS TAKING SYSTANE 0.4-0.3 % SOLUTION 1 DROP INTO AFFECTED EYE NEEDED OPHTHALMIC 2-3 TIMES DAILY TAKING LUTEIN 6 MG CAPSULE 1 CAPSULE WITH A MEAL ORALLY ONCE A DAY TAKING PAZEO 0.7 % SOLUTION 1 DROP INTO AFFECTED EYE OPHTHALMIC ONCE A DAY TAKING VOLTAREN 1 % GEL 4GM EXTERNALLY Q8H PRN TO LOW BACK TAKING VITAMIN D 1000 UNIT TABLET 2 TABS ORALLY ONCE A DAY WITH A MEAL TAKING CALCIUM 600 + D 600-400 MG-UNIT TABLET 1 TABLET ORALLY ONCE A DAY TAKING GLUCOSAMINE CHONDRO COMPLEX DAILY TAKING DULOXETINE HCL 60 MG CAPSULE DELAYED RELEASE PARTICLES 1 CAPSULE ORALLY ONCE A DAY TAKING SYNTHROID 25 MCG TABLET 1 TABLET EVERY MORNING ON AN EMPTY STOMACH ORALLY ONCE A DAY TAKING ATORVASTATIN CALCIUM 10 MG TABLET 1 TABLET ORALLY ONCE A DAY TAKING GABAPENTIN 300 MG CAPSULE 1 CAPSULE ORALLY THREE TIMES PER DAY TAKING LOSARTAN POTASSIUM 50 MG TABLET 1 TABLET ORALLY ONCE A DAY TAKING NEXIUM 40 MG CAPSULE DELAYED RELEASE 1 CAPSULE ORALLY DAILY TAKING DICLOFENAC SODIUM 50 MG TABLET DELAYED RELEASE 1 TABLET WITH FOOD OR MILK ORALLY THREE TIMES A DAY NOT-TAKING COLACE 100 MG CAPSULE 1 CAPSULE NEEDED ORALLY BID MEDICATION LIST REVIEWED AND RECONCILED WITH THE PATIENT PAST MEDICAL HISTORY HYPERLIPIDEMIA HYPOTHYROIDISM OSTEOARTHRITIS ALLERGIC RHINITIS ESOPHAGEAL REFLUX DRY EYES ANXIETY TINNITUS - EVALUATED AT AUDIOLOGY AND ENT ALLERGIC RHINITIS OSTEOPENIA - SPINE, DEXA 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 ALLERGIES ENVIRONMENTAL: SINUS CONGESTION - ALLERGY CHLORTHALIDONE: HYPONATREMIA - SIDE EFFECTS LISINOPRIL: COUGH - SIDE EFFECTS SURGICAL HISTORY CYST REMOVAL - SHOULDER RIGHT HIP REPLACEMENT 04/03 EGD - HH, BX W/INFLAMMATIONVINCE 2008 COLONOSCOPY - DIVERTICULOSIS, INTERNAL HEMORRHOIDS, VINCE 2008 FAMILY HISTORY FATHER: MOTHER: , DIAGNOSED WITH OTHER MALIGNANT NEOPLASM OF UNSPECIFIED SITE 3 BROTHER(S) , 2 SISTER(S) . 2 SON(S) , 2 DAUGHTER(S) . BROTHER - , GRAND MAL SEIZURES\\\\\\\\NBROTHER - HEART DISEASE\\\\\\\\NDAUGHTER - RHEUMATOID ARTHRITIS. SOCIAL HISTORY GENERAL: TOBACCO USE ARE YOU A:NONSMOKER NEVER SMOKER LATEX QUESTIONNAIRE LATEX ALLERGY : HAVE YOU EVER DEVELOPED ANY TYPE OF REACTION AFTER HANDLING LATEX PRODUCTS SUCH RUBBER GLOVES, CONDOMS, DIAPHRAGMS, BALLOONS, SOCKS, OR UNDERWEAR?NO LATEX ALLERGY : HAVE YOU EVER DEVELOPED ANY TYPE OF REACTION DURING OR AFTER DENTAL APPOINTMENT, VAGINAL/RECTAL EXAMINATION, SURGICAL PROCEDURE, OR ANY OTHER EXPOSURE?NO LATEX RISK : HAVE YOU EVER HAD ANY DIFFICULTY BREATHING OR HIVES AFTER EATING OR HANDLING ANY FRUITS, OR VEGETABLES; SUCH KIWI, BANANAS, STONE FRUITS, OR CHESTNUTSNO LATEX RISK : DO YOU HAVE A PREVIOUS PERSONAL HISTORY OF MORE THAN NINE SURGERIES, SPINA BIFIDA, OR REPEATED CATHERIZATIONS? NO LATEX RISK : ARE YOU FREQUENTLY EXPOSED TO LATEX PRODUCTS IN YOUR OCCUPATION?NO DATE ASKED : 04/29/2020 BMI CARE GOAL FOLLOW-UP ABOVE NORMAL BMI FOLLOW-UPGIVING ENCOURAGEMENT TO EXERCISE ALCOHOL SCREENING DID YOU HAVE A DRINK CONTAINING ALCOHOL IN THE PAST YEAR?NO POINTS0 INTERPRETATIONNEGATIVE RECREATIONAL DRUG USE DENIES. CAFFEINE 2/DAY COFFEE, PLUS HERBAL TEA. SEXUAL HX HAD SEX IN THE LAST 12 MONTHS (VAGINAL, ORAL, OR ANAL)?NO HAVE YOU EVER HAD AN STD?NO HIV / HEP-C SCREENING HIV TEST OFFERED TO PATIENT:NO HEP-C TEST OFFERED TO PATIENT:NO HINDUISM HINDUISM NO BUDDHIST BELIEFS THAT WOULD IMPACT HEALTH CARE. LANGUAGE LANGUAGES SPOKEN:IVORIAN EDUCATION LEVEL OF EDUCATION:HIGH SCHOOL LEARNING BARRIERS / SPECIAL NEEDS CHANGE FROM LAST VISIT?NO BARRIERS TO LEARNING?NO HEARING IMPAIRED?NO VISION IMPAIRED?YES COGNITIVELY IMPAIRED?NO :CORRECTIVE LENSES READINESS TO LEARN?YES LEARNING PREFERENCES?YES :TAPES/VIDEOS, BOOKLETS, HANDOUTS LEARNING CAPABILITIES PRESENT?YES EMOTIONAL BARRIERS?NO SPECIAL DEVICES?NO SILVERWARE SUPERVISOR NEEDED?NO DOMESTIC VIOLENCE DENIES SEXUAL, PHYSICAL ABUSE, VERBAL ABUSE. 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 DIET: NO HX EATING DISORDERS, LOW FAT, LOW CHOLESTEROL, NO ADDED SALT. EXERCISE: DAILY, WALKS, FARMS, GARDENS. MARITAL STATUS: (SPOUSE NOW RETIRED). OTHERS AT HOME: SPOUSE. NEW PATIENT PAIN DIARY TODAY'S VISITNOTES PATIENT DESCRIBES PAIN :ACHING, HAVE IT ALL THE TIME FROM 0-10, WHAT LEVEL IS YOUR PAIN TODAY?2 PRECIPITATING FACTORS ACTIVITIES, WALKING ALLEVIATING FACTORS SITTING PAIN CLINIC PFS, CLERGY, PUBLIC HEALTH REFERRALS HAS THE PATIENT BEEN EDUCATED REGARDING HIS/HER PLAN OF CARE?YES HAS THE PATIENT BEEN EDUCATED REGARDING PAIN, THE RISK FOR PAIN, THE IMPORTANCE OF EFFECTIVE PAIN MANAGEMENT, AND THE PAIN ASSESSMENT PROCESS?YES ADVANCE DIRECTIVE ADVANCE DIRECTIVE DISCUSSED WITH PATIENT:YES HCP - JENNI SOLIS (DAUGHTER) HOSPITALIZATION/MAJOR DIAGNOSTIC PROCEDURE SURGERIES REVIEW OF SYSTEMS CONSTITUTIONAL: ANY RECENT FEVER NO . CHILLS NO . WEIGHT CHANGE OF UNKNOWN REASONS NO . GASTROENTEROLOGY: NEW UNEXPLAINABLE CHANGES IN BOWEL CONTROL NO . CONSTIPATION NO . GENITOURINARY: ANY NEW CHANGE IN BLADDER CONTROL? NO . NEUROLOGY: NEW ONSET DIZZINESS OR NEUROLOGICAL CHANGES NOT MENTIONED NO . NEW NUMBNESS OR PAIN PATTERNS NOT MENTIONED AND PERTINENT TO TODAY'S VISIT NO . CARDIOLOGY: NEW CHEST PRESSURE NO . NEW CHEST PAIN NO . RESPIRATORY: UNEXPLAINABLE COUGH NO . NEW SHORTNESS OF BREATH NO . VITAL SIGNS WT 178.2 LBS, HT 62.25 IN, BMI 32.33 INDEX, BP 177/79 MM HG, HR 86 /MIN, RR 18 /MIN, TEMP 97.6 F, OXYGEN SAT % 96%, SAFE IN ENV? (Y/N) Y, NA INITIALS AW [id number] ASUMADU DEAN OF EDUCATION. EXAMINATION GENERAL EXAMINATION: GENERALNO ACUTE DISTRESS, WELL NOURISHED AND HYDRATED. PSYCHAPPROPRIATE MOOD AND AFFECT . LUNGS:CLEAR TO AUSCULTATION BILATERALLY, NO WHEEZES, RHONCHI, RALES. HEART:NO MURMURS, REGULAR RATE AND RHYTHM. ASSESSMENTS LUMBAR FACET ARTHROPATHY - M46.96 (PRIMARY) TREATMENT LUMBAR FACET ARTHROPATHY REFILL GABAPENTIN CAPSULE, 300 MG, 1 CAPSULE, ORALLY, THREE TIMES PER DAY, 30 DAYS, 90, REFILLS 2 REFILL VOLTAREN GEL, 1 %, 4GM, EXTERNALLY, Q8H PRN TO LOW BACK, 30 DAYS, 1 TUBE CLINICAL NOTES: 71-YEAR-OLD FEMALE IN FOR CHRONIC PAIN FOLLOW-UP. GIVEN PRESENTING SYMPTOMS RECOMMENDED CONTINUATION OF CURRENT MEDICATION REGIMEN WITH FOLLOW-UP IN 3 MONTHS. PATIENT HAS EXPRESSED UNDERSTANDING OF AND WAS IN AGREEMENT WITH TREATMENT PLAN. GIVEN TIME TO ASK QUESTIONS AND EXPRESS CONCERNS. PROCEDURE CODES FA211 ESTABILISHED PATIENT [facility] CHARGE DISPOSITION & COMMUNICATION FOLLOW UP 3 MONTHS (REASON: BACK PAIN) ELECTRONICALLY SIGNED BY NEGRITA CHAVEZ ON 04/30/2020 AT 08:17 AM EDT DISCLAIMER : THIS IS A VISIT SUMMARY EXTRACTED FROM THE [employer] CHART. IT IS NOT A COPY OF THE [employer] PROGRESS NOTE. CARMEND
== END ==
LOC: M PAIN 13:15
PROVIDERS: ATTEND Family Medicine
DX: M46.96 Unspecified inflammatory spondylopathy, lumbar region (principal)

== ENCOUNTER → 2020-05-13 | Outpatient (REF) | payer MEDICARE ==
[2020-05-13 18:19] LABS: ALBUMIN 3.8 GM/DL (3.2-5.2); ALT/SGPT 27 U/L (12-78); BILIRUBIN,TOTAL 0.3 MG/DL (0.2-1.0); BLOOD UREA NITROGEN 18 MG/DL (7-18); CALCIUM LEVEL 9.1 MG/DL (8.8-10.2); CARBON DIOXIDE LEVEL 27 MEQ/L (21-32); CHLORIDE LEVEL 106 MEQ/L (98-107); CREATININE FOR GFR 0.81 MG/DL (0.55-1.30); FREE T4 0.92 NG/DL (0.76-1.46); GLOMERULAR FILTRATION RATE > 60.0 (>39); GLUCOSE, FASTING 90 MG/DL (70-100); POTASSIUM SERUM 3.9 MEQ/L (3.5-5.1); SODIUM LEVEL 136 MEQ/L (136-145); TOTAL PROTEIN 7.2 GM/DL (6.4-8.2)
[2020-05-13 18:33] LABS: CREATININE, URINE 70.5 MG/DL; MALB URINE SIEMENS < 5.0 MG/L
== END ==
LOC: M SFHCPLAZ 14:34
PROVIDERS: ATTEND Nurse Practitioner Family
DX: I10 Essential (primary) hypertension (principal); E03.9 Hypothyroidism, unspecified

== ENCOUNTER → 2020-07-30 | Outpatient (CLI) | payer MEDICARE ==
[~2020-07-30] MED LIST changes: +CALC-212 PO; -CALC600T7 PO; +D31000TA2 PO; -VITAD1000T PO
--- NOTE | 2020-07-31 10:58 | ECWPNPC ---
PATIENT NAME: KAMALA REEDER : 1940 GENDER: FEMALE VISIT DATE: 07/30/2020 DISCHARGE DATE: 07/30/20 1425 VISIT LOCKED DATE TIME: PHYSICIAN: CATHERINE NICOLE PHYSICIAN PAGER NO: ACTIVE RESOURCE: CATHERINE NICOLE REASON FOR APPOINTMENT 1. BACK PAIN HISTORY OF PRESENT ILLNESS DEPRESSION SCREENING: PHQ-2 (2015 EDITION) LITTLE INTEREST OR PLEASURE IN DOING THINGS?NOT AT ALL FEELING DOWN, DEPRESSED, OR HOPELESS?NOT AT ALL TOTAL SCORE0 79-YEAR-OLD FEMALE IN FOR CHRONIC PAIN FOLLOW-UP. SHE RATES HER PAIN CURRENTLY AT A 4 OUT OF 10 AND DESCRIBES IT ACHING, AND BURNING. SHE FEELS HER MEDICATIONS ARE HELPFUL AND DENIES MED SIDE EFFECTS AT THIS TIME. GENERAL: -. FALL RISK SCREENING: SCREENING :ONE FALL WITHOUT INJURY IN THE PAST YEAR PAIN SCREENING: PATIENT HAS A COMPLAINT OF ACUTE OR CHRONIC PAIN :YES LOCATION OF PAIN:LOW BACK INTENSITY OF PAIN (SCALE OF 1 TO 10):4 WHAT DOES YOUR PAIN FEEL LIKE:ACHING, BURNING DURATION:CONTINOUS, AWAKENS FROM SLEEP PAIN IS INCREASED BY:PROLONGED STANDING PAIN IS DECREASED BY:USE OF PAIN MEDICATIONS, SITTING NURSING NOTE: -. PAIN CENTER INTAKE QUESTIONS: DO YOU HAVE A HISTORY OF MRSA? :NO DO YOU TAKE A BLOOD THINNERS? :NO DO YOU HAVE ANY BLEEDING DISORDERS? :NO ANY NEW NUMBNESS OR WEAKNESS IN YOUR LEGS OR ARMS? :NO ANY PACEMAKER,DEFIBRILLATOR, OR DORSAL COLUMN STIMULATOR? :NO DO YOU HAVE ANY RASHES OR OPEN SORES? :NO ARE YOU ALLERGIC TO IV DYE? :NO ARE YOU DIABETIC? :NO ANY NEW PROBLEMS WITH YOUR MEDICATIONS? :YES PATIENT STATES THE VOLTAREN GEL WAS CAUSING ITCHING AND REDNESS. SHE STOPPED TAKING THE MEDICATION. POSSIBLE ALLERGY. HAVE YOU RECEIVED A VACCINE IN THE PAST 30 DAYS? :NO DO YOU PLAN TO RECEIVE A VACCINE IN THE NEXT 21 DAYS? :YES PATIENT PLANS TO GET A FLU SHOT SOON. DO YOU NEED ANY PRESCRIPTION? :YES GABAPENTIN DO YOU TAKE ANY IMMUNOSUPPRESSIVE MEDICATIONS? :NO IS THERE A CHANCE YOU COULD BE ? :NO ARE YOU BREAST FEEDING? :NO CURRENT MEDICATIONS TAKING NEXIUM 40 MG CAPSULE DELAYED RELEASE 1 CAPSULE ORALLY DAILY TAKING SYSTANE 0.4-0.3 % SOLUTION 1 DROP INTO AFFECTED EYE NEEDED OPHTHALMIC 2-3 TIMES DAILY TAKING LUTEIN 6 MG CAPSULE 1 CAPSULE WITH A MEAL ORALLY ONCE A DAY TAKING PAZEO 0.7 % SOLUTION 1 DROP INTO AFFECTED EYE OPHTHALMIC ONCE A DAY TAKING VITAMIN D 1000 UNIT TABLET 2 TABS ORALLY ONCE A DAY WITH A MEAL TAKING CALCIUM 600 + D 600-400 MG-UNIT TABLET 1 TABLET ORALLY ONCE A DAY TAKING GLUCOSAMINE CHONDRO COMPLEX DAILY TAKING DULOXETINE HCL 60 MG CAPSULE DELAYED RELEASE PARTICLES 1 CAPSULE ORALLY ONCE A DAY TAKING SYNTHROID 25 MCG TABLET 1 TABLET EVERY MORNING ON AN EMPTY STOMACH ORALLY ONCE A DAY TAKING ATORVASTATIN CALCIUM 10 MG TABLET 1 TABLET ORALLY ONCE A DAY TAKING LOSARTAN POTASSIUM 50 MG TABLET 1 TABLET ORALLY ONCE A DAY TAKING NEXIUM 40 MG CAPSULE DELAYED RELEASE 1 CAPSULE ORALLY DAILY TAKING DICLOFENAC SODIUM 50 MG TABLET DELAYED RELEASE 1 TABLET WITH FOOD OR MILK ORALLY THREE TIMES A DAY TAKING GABAPENTIN 300 MG CAPSULE 1 CAPSULE ORALLY THREE TIMES PER DAY TAKING METAMUCIL - PACKET 1 PACKET WITH 8 OUNCES OF LIQUID NEEDED ORALLY THREE TIMES A DAY TAKING ATORVASTATIN CALCIUM 10 MG TABLET 1 TABLET ORALLY ONCE A DAY NOT-TAKING VOLTAREN 1 % GEL 4GM EXTERNALLY Q8H PRN TO LOW BACK DISCONTINUED SYNTHROID 25 MCG TABLET 1 TABLET EVERY MORNING ON AN EMPTY STOMACH ORALLY ONCE A DAY MEDICATION LIST REVIEWED AND RECONCILED WITH THE PATIENT PAST MEDICAL HISTORY HYPERLIPIDEMIA HYPOTHYROIDISM OSTEOARTHRITIS ALLERGIC RHINITIS ESOPHAGEAL REFLUX DRY EYES ANXIETY TINNITUS - EVALUATED AT AUDIOLOGY AND ENT ALLERGIC RHINITIS OSTEOPENIA - SPINE, DEXA 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 ALLERGIES ENVIRONMENTAL: SINUS CONGESTION - ALLERGY CHLORTHALIDONE: HYPONATREMIA - SIDE EFFECTS LISINOPRIL: COUGH - SIDE EFFECTS SURGICAL HISTORY CYST REMOVAL - SHOULDER RIGHT HIP REPLACEMENT 04/03 EGD - HH, BX W/INFLAMMATION, VINCE 03/13 COLONOSCOPY - DIVERTICULOSIS, INTERNAL HEMORRHOIDS, MICROSCOPIC COLITIS VINCE 03/13 FAMILY HISTORY FATHER: MOTHER: , DIAGNOSED WITH OTHER MALIGNANT NEOPLASM OF UNSPECIFIED SITE 3 BROTHER(S) , 2 SISTER(S) . 2 SON(S) , 2 DAUGHTER(S) . BROTHER - , GRAND MAL SEIZURES\\\\\\\\NBROTHER - HEART DISEASE\\\\\\\\NDAUGHTER - RHEUMATOID ARTHRITIS. SOCIAL HISTORY GENERAL: TOBACCO USE ARE YOU A:NONSMOKER NEVER SMOKER LATEX QUESTIONNAIRE LATEX ALLERGY : HAVE YOU EVER DEVELOPED ANY TYPE OF REACTION AFTER HANDLING LATEX PRODUCTS SUCH RUBBER GLOVES, CONDOMS, DIAPHRAGMS, BALLOONS, SOCKS, OR UNDERWEAR?NO LATEX ALLERGY : HAVE YOU EVER DEVELOPED ANY TYPE OF REACTION DURING OR AFTER DENTAL APPOINTMENT, VAGINAL/RECTAL EXAMINATION, SURGICAL PROCEDURE, OR ANY OTHER EXPOSURE?NO LATEX RISK : HAVE YOU EVER HAD ANY DIFFICULTY BREATHING OR HIVES AFTER EATING OR HANDLING ANY FRUITS, OR VEGETABLES; SUCH KIWI, BANANAS, STONE FRUITS, OR CHESTNUTSNO LATEX RISK : DO YOU HAVE A PREVIOUS PERSONAL HISTORY OF MORE THAN NINE SURGERIES, SPINA BIFIDA, OR REPEATED CATHERIZATIONS? NO LATEX RISK : ARE YOU FREQUENTLY EXPOSED TO LATEX PRODUCTS IN YOUR OCCUPATION?NO DATE ASKED : 07/30/2020 BMI CARE GOAL FOLLOW-UP ABOVE NORMAL BMI FOLLOW-UPGIVING ENCOURAGEMENT TO EXERCISE ALCOHOL SCREENING DID YOU HAVE A DRINK CONTAINING ALCOHOL IN THE PAST YEAR?NO POINTS0 INTERPRETATIONNEGATIVE RECREATIONAL DRUG USE DENIES. CAFFEINE 2/DAY COFFEE, PLUS HERBAL TEA. SEXUAL HX HAD SEX IN THE LAST 12 MONTHS (VAGINAL, ORAL, OR ANAL)?NO HAVE YOU EVER HAD AN STD?NO HIV / HEP-C SCREENING HIV TEST OFFERED TO PATIENT:NO HEP-C TEST OFFERED TO PATIENT:NO MORAVIAN MORAVIAN NO ADVENT BELIEFS THAT WOULD IMPACT HEALTH CARE. LANGUAGE LANGUAGES SPOKEN:KHMER EDUCATION LEVEL OF EDUCATION:HIGH SCHOOL LEARNING BARRIERS / SPECIAL NEEDS CHANGE FROM LAST VISIT?NO BARRIERS TO LEARNING?NO HEARING IMPAIRED?NO VISION IMPAIRED?YES COGNITIVELY IMPAIRED?NO :CORRECTIVE LENSES READINESS TO LEARN?YES LEARNING PREFERENCES?YES :TAPES/VIDEOS, BOOKLETS, HANDOUTS LEARNING CAPABILITIES PRESENT?YES EMOTIONAL BARRIERS?NO SPECIAL DEVICES?NO FLY WORKER NEEDED?NO DOMESTIC VIOLENCE DENIES SEXUAL, PHYSICAL ABUSE, VERBAL ABUSE. 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 DIET: NO HX EATING DISORDERS, LOW FAT, LOW CHOLESTEROL, NO ADDED SALT. EXERCISE: DAILY, WALKS, FARMS, GARDENS. MARITAL STATUS: (SPOUSE NOW RETIRED). OTHERS AT HOME: SPOUSE. NEW PATIENT PAIN DIARY TODAY'S VISITNOTES PATIENT DESCRIBES PAIN :ACHING, HAVE IT ALL THE TIME FROM 0-10, WHAT LEVEL IS YOUR PAIN TODAY?2 PRECIPITATING FACTORS ACTIVITIES, WALKING ALLEVIATING FACTORS SITTING PAIN CLINIC PFS, CLERGY, PUBLIC HEALTH REFERRALS HAS THE PATIENT BEEN EDUCATED REGARDING HIS/HER PLAN OF CARE?YES HAS THE PATIENT BEEN EDUCATED REGARDING PAIN, THE RISK FOR PAIN, THE IMPORTANCE OF EFFECTIVE PAIN MANAGEMENT, AND THE PAIN ASSESSMENT PROCESS?YES ADVANCE DIRECTIVE ADVANCE DIRECTIVE DISCUSSED WITH PATIENT:YES HCP - JENNI SOLIS (DAUGHTER) HOSPITALIZATION/MAJOR DIAGNOSTIC PROCEDURE SURGERIES REVIEW OF SYSTEMS CONSTITUTIONAL: ANY RECENT FEVER NO . CHILLS NO . WEIGHT CHANGE OF UNKNOWN REASONS NO . GASTROENTEROLOGY: NEW UNEXPLAINABLE CHANGES IN BOWEL CONTROL NO . CONSTIPATION NO . GENITOURINARY: ANY NEW CHANGE IN BLADDER CONTROL? NO . NEUROLOGY: NEW ONSET DIZZINESS OR NEUROLOGICAL CHANGES NOT MENTIONED NO . NEW NUMBNESS OR PAIN PATTERNS NOT MENTIONED AND PERTINENT TO TODAY'S VISIT NO . CARDIOLOGY: NEW CHEST PRESSURE NO . NEW CHEST PAIN NO . RESPIRATORY: UNEXPLAINABLE COUGH NO . NEW SHORTNESS OF BREATH NO . VITAL SIGNS WT 178.4 LBS, HT 62.25 IN, BMI 32.36 INDEX, BP 145/67 MM HG, HR 74 /MIN, RR 18 /MIN, TEMP 97.8 F, OXYGEN SAT % 94%, NA INITIALS AW 1346, REVIEWED BY: WARREN VILLAFANA CMA. EXAMINATION GENERAL EXAMINATION: GENERALNO ACUTE DISTRESS, WELL NOURISHED AND HYDRATED. PSYCHAPPROPRIATE MOOD AND AFFECT . LUNGS:CLEAR TO AUSCULTATION BILATERALLY, NO WHEEZES, RHONCHI, RALES. HEART:NO MURMURS, REGULAR RATE AND RHYTHM. ASSESSMENTS LUMBAR FACET ARTHROPATHY - M46.96 (PRIMARY) TREATMENT LUMBAR FACET ARTHROPATHY REFILL DICLOFENAC SODIUM TABLET DELAYED RELEASE, 50 MG, 1 TABLET WITH FOOD OR MILK, ORALLY, THREE TIMES A DAY, 30 DAY(S), 90 REFILL GABAPENTIN CAPSULE, 300 MG, 1 CAPSULE, ORALLY, THREE TIMES PER DAY, 30 DAYS, 90, REFILLS 2 CLINICAL NOTES: 79-YEAR-OLD FEMALE IN FOR CHRONIC PAIN FOLLOW-UP. GIVEN PRESENTING SYMPTOMS RECOMMENDED CONTINUATION OF CURRENT MEDICATION REGIMEN WITH FOLLOW-UP IN 2 MONTHS. PATIENT HAS EXPRESSED UNDERSTANDING OF AND WAS IN AGREEMENT WITH TREATMENT PLAN. GIVEN TIME TO ASK QUESTIONS AND EXPRESS CONCERNS. PREVENTIVE MEDICINE PAIN CLINIC TEACHING: THE PATIENT HAS BEEN EDUCATED REGARDING PAIN, THE RISK FOR PAIN, THE IMPORTANCE OF EFFECTIVE PAIN MANAGEMENT, AND THE PAIN ASSESSMENT PROCESS. : REVIEWED MEDICATIONS AND PLAN OF CARE WITH PATIENT. PATIENT ACKNOWLEDGED UNDERSTANDIGN. - WARREN VILLAFANA CMA PROCEDURE CODES FA211 ESTABILISHED PATIENT [facility] CHARGE DISPOSITION & COMMUNICATION FOLLOW UP 2 MONTHS (REASON: BACK PAIN) ELECTRONICALLY SIGNED BY NEGRITA CHAVEZ ON 07/31/2020 AT 10:56 AM EDT DISCLAIMER : THIS IS A VISIT SUMMARY EXTRACTED FROM THE [employer] CHART. IT IS NOT A COPY OF THE [employer] PROGRESS NOTE. CARMEND
== END ==
LOC: M PAIN 13:30
PROVIDERS: ATTEND Family Medicine
DX: M46.96 Unspecified inflammatory spondylopathy, lumbar region (principal); E78.5 Hyperlipidemia, unspecified; E03.9 Hypothyroidism, unspecified; J30.9 Allergic rhinitis, unspecified; K21.9 Gastro-esophageal reflux disease without esophagitis; H04.123 Dry eye syndrome of bilateral lacrimal glands; F41.9 Anxiety disorder, unspecified; M17.0 Bilateral primary osteoarthritis of knee; Z79.899 Other long term (current) drug therapy; Z88.8 Allergy status to other drugs, medicaments and biological substances

== ENCOUNTER → 2020-08-01 | Outpatient (REF) | payer MEDICARE ==
[2020-08-01 13:41] LABS: ALBUMIN 3.6 GM/DL (3.2-5.2); ALT/SGPT 25 U/L (12-78); BILIRUBIN,TOTAL 0.3 MG/DL (0.2-1.0); BLOOD UREA NITROGEN 17 MG/DL (7-18); CALCIUM LEVEL 8.8 MG/DL (8.8-10.2); CARBON DIOXIDE LEVEL 27 MEQ/L (21-32); CHLORIDE LEVEL 104 MEQ/L (98-107); CHOLESTEROL LEVEL 242 MG/DL (<200); CHOLESTEROL RISK RATIO 6.368 (<5); CREATININE FOR GFR 0.73 MG/DL (0.55-1.30); FREE T4 1.02 NG/DL (0.76-1.46); GLOMERULAR FILTRATION RATE > 60.0 (>39); GLUCOSE, FASTING 92 MG/DL (70-100); HDL CHOLESTEROL 38 MG/DL (>40); LDL CHOLESTEROL 162 MG/DL (<100); NON-HDL-C 204 MG/DL; POTASSIUM SERUM 4.4 MEQ/L (3.5-5.1); SODIUM LEVEL 136 MEQ/L (136-145); TOTAL PROTEIN 7.1 GM/DL (6.4-8.2); TRIGLYCERIDES LEVEL 208 MG/DL (<150)
[2020-08-01 13:56] LABS: TOTAL 25(OH) VITAMIN D 31.5 NG/ML (30.0-100.0)
== END ==
LOC: M SFHCADAM 10:01
PROVIDERS: ATTEND Nurse Practitioner Family
DX: I10 Essential (primary) hypertension (principal); E03.9 Hypothyroidism, unspecified; E78.2 Mixed hyperlipidemia; E55.9 Vitamin D deficiency, unspecified

== ENCOUNTER → 2020-09-25 | Outpatient (CLI) | payer MEDICARE ==
[~2020-09-25] MED LIST changes: +DICL50TAB PO; +GABA-843 PO; +META28.32 PO
[2020-09-25 11:37] LABS: HEMATOCRIT 34.7 % (36.0-47.0); MEAN CORPUSCULAR HEMOGLOBIN 28.6 pg (27.0-33.0); MEAN CORPUSCULAR HGB CONC 31.7 g/dl (32.0-36.5); MEAN CORPUSCULAR VOLUME 90.4 fl (80.0-96.0); PLATELET COUNT, AUTOMATED 256 10^3/uL (150-450); RED BLOOD COUNT 3.84 10^6/uL (4.00-5.40)
--- NOTE | 2020-09-25 11:38 | ECGEPIP ---
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
[2020-09-25 11:48] LABS: INR 0.98; PROTHROMBIN TIME 13.2 SECONDS (12.5-14.3)
[2020-09-25 12:26] LABS: ERYTHROCYTE SEDIMENTATION RATE 24 mm/hr (0-30)
[2020-09-25 12:30] LABS: ALBUMIN 3.7 GM/DL (3.2-5.2); ALT/SGPT 22 U/L (12-78); BILIRUBIN,TOTAL 0.2 MG/DL (0.2-1.0); BLOOD UREA NITROGEN 17 MG/DL (7-18); CALCIUM LEVEL 9.1 MG/DL (8.8-10.2); CARBON DIOXIDE LEVEL 28 MEQ/L (21-32); CHLORIDE LEVEL 104 MEQ/L (98-107); CREATININE FOR GFR 0.68 MG/DL (0.55-1.30); GLOMERULAR FILTRATION RATE > 60.0 (>39); GLUCOSE, FASTING 96 MG/DL (70-100); SODIUM LEVEL 136 MEQ/L (136-145)
--- NOTE | 2020-09-25 15:54 | REP ---
INDICATION: LEFT TOTAL HIP ARTHROPLASTY, LAB 1ST EKG 2ND XR 3RD COMPARISON: 08/16/2015 TECHNIQUE: PA and lateral. FINDINGS: The mediastinum and cardiac silhouette are normal. The lung elaine are clear and without acute consolidation, effusion, or pneumothorax. The skeletal structures demonstrate osteopenia and degenerative changes primarily involving the bilateral shoulders and thoracic spine. IMPRESSION: No acute cardiopulmonary process. <Electronically signed by Papo Ann > 09/25/20 1586
== END ==
LOC: M LAB 10:48
PROVIDERS: ATTEND Orthopaedic Surgery
DX: Z96.642 Presence of left artificial hip joint (principal); Z79.01 Long term (current) use of anticoagulants

== ENCOUNTER → 2020-10-02 | Outpatient (REF) | payer MEDICARE ==
[2020-10-02 13:51] LABS: HEMATOCRIT 36.2 % (36.0-47.0); HEMOGLOBIN 11.3 g/dl (12.0-15.5); MEAN CORPUSCULAR HEMOGLOBIN 28.6 pg (27.0-33.0); MEAN CORPUSCULAR HGB CONC 31.2 g/dl (32.0-36.5); MEAN CORPUSCULAR VOLUME 91.6 fl (80.0-96.0); PLATELET COUNT, AUTOMATED 327 10^3/uL (150-450); RED BLOOD COUNT 3.95 10^6/uL (4.00-5.40); WHITE BLOOD COUNT 6.8 10^3/uL (4.0-10.0)
== END ==
LOC: M SFHCPLAZ 10:59
PROVIDERS: ATTEND Family Medicine
DX: D64.9 Anemia, unspecified (principal)
CPT/HCPCS: 36415; 82728; 83550; 85027; 85046; 93005; G0463

== ENCOUNTER → 2020-10-04 | Outpatient (CLI) | payer MEDICARE | LOC: M LABSMTC 10:50 | PROVIDERS: ATTEND Anesthesiology | DX: Z01.812 Encounter for preprocedural laboratory examination (principal); Z20.828 Contact with and (suspected) exposure to other viral communicable diseases ==

== ENCOUNTER 2020-10-09 06:22 | Inpatient (IN) | payer MEDICARE ==
--- NOTE | 2020-10-04 16:45 | HPE ---
HISTORY AND PHYSICAL DATE OF ADMISSION: 10/09/2020 ATTENDING: KIRILL GALVIN MD CHIEF COMPLAINT: Left hip pain. HISTORY OF PRESENT ILLNESS: Kathi is a pleasant 80-year-old female with progressively worsening left hip pain and stiffness. She has failed to improve with conservative treatment. She has elected for surgery for her continued symptoms. She has pain with weightbearing activities and activities of daily living. She has elected for surgery for her continued symptoms. X-rays of her hip are notable for advanced osteoarthritis of the left hip joint. She is consented for a left total hip arthroplasty by Dr. Kirill Galvin MD. Medical optimization was performed by Dr. Campbell. ALLERGIES: CHLORTHALIDONE AND LISINOPRIL. CURRENT MEDICATIONS: 1. Mobi-C 7.5 mg once every day. 2. Gabapentin 200 mg twice a day. 3. Pazeo 0.7% eye drops. 4. Vitamin D3 Super Strength 1000 units a day. 5. Lutein 20 mg a day. 6. Systane eye drops 0.4% to 0.3% one drop in both eyes twice a day. 7. Nexium 40 mg every day. 8. Calcium 600+D 600/400 mg one by mouth twice a day. 9. Synthroid 25 mcg. 10. Duloxetine 60 mg. 11. Atorvastatin calcium once a day. 12. Losartan potassium 50 mg. PAST MEDICAL HISTORY: 1. High cholesterol. 2. Hypothyroidism. 3. Anxiety and depression. SOCIAL HISTORY: The patient is retired. She does not smoke or drink alcohol. FAMILY HISTORY: Noncontributory. REVIEW OF SYSTEMS: This patient denies chest pain, heart palpitations, cough, wheezing, difficulty breathing, or shortness of breath. She denies abdominal pain, nausea, vomiting, diarrhea, or constipation. She denies upper respiratory infection or urinary tract infection symptoms. She does complain of persistent pain in the left hip. PHYSICAL EXAMINATION: GENERAL: She is well-nourished, well-developed, in no acute distress, alert female patient. She ambulates with a moderate limp favoring her left lower extremity. She uses a single leg cane. VITAL SIGNS: She is 5 feet 1.5 inches tall and weighs 174.8 pounds, temperature 96.8, blood pressure 146/82, pulse 76, and respirations 14. NECK: Supple without adenopathy or jugular venous distention. LUNGS: Clear to auscultation without rales or wheeze throughout. HEART: Regular rate and rhythm. ABDOMEN: Bowel sounds were present. EXTREMITIES: Examination of the hip revealed intact skin. She had decreased range of motion due to pain and stiffness. The limb is neurovascularly intact. LABORATORY DATA: Chest x-ray showed no acute cardiopulmonary disease processes. EKG showed normal sinus rhythm at 75 beats per minute. Pro time was 13.2, INR 0.98. CBC showed iron deficiency anemia with a red count of 3.84, hemoglobin 11, and hematocrit 34.7. Mean corpuscular hemoglobin concentration was 31.7, sedimentation rate 24, glucose 96, BUN 17, creatinine 0.68, sodium 136, potassium 4.0. IMPRESSION: Symptomatic osteoarthritis of the left hip joint. PLAN: The patient is consented for a left total hip arthroplasty by Dr. Kirill Galvin.
[2020-10-09] VITALS (7 sets, daily range): BP systolic 131–159; BP diastolic 58–71
[~2020-10-09] VITALS: Ht 154.9 cm; Wt 67.1 kg
[2020-10-09] MEDS ORDERED: ONDANSETRON 4MG/2ML VIAL As Ordered ONE (07:05)
[2020-10-09] MEDS ORDERED: fentaNYL 100 MCG/2 ML INJECTION (J3010) As Ordered ONE (07:05)
[2020-10-09] MEDS ORDERED: LIDOCAINE 2% 100MG/5ML SDV (FOR ANES.) As Ordered ONE (07:05)
[2020-10-09] MEDS ORDERED: propofoL 500 MG/50 ML VIAL As Ordered ONE (07:05)
[2020-10-09] MEDS ORDERED: TRANEXAMIC ACID 100 MG/ML 10ML VIAL As Ordered ONE (07:11)
[2020-10-09] MEDS ORDERED: EPINEPHrine INJ 1 MG/ML 1ML AMP As Ordered ONE (07:11)
[2020-10-09] MEDS ORDERED: ceFAZolin 1GM VIAL (J0690 PER 500MG) As Ordered ONE (07:11)
[2020-10-09] MEDS ORDERED: BUPIVACAINE LIPOSOME/PF 1.3% 20ML VIAL (13.3MG/ML)(EXPAREL)(C9290 PER1MG) As Ordered ONE (07:11)
[2020-10-09] MEDS ORDERED: ceFAZolin SOD 2 GM in IV 1 EA IV ONE (07:15)
--- NOTE | 2020-10-09 08:03 | IPN ---
PROGRESS NOTE DATE: 10/09/2020 SUBJECTIVE: The patient was seen and examined. She wished to go ahead with a left total hip arthroplasty. She understands the nature of this, the risks of bleeding, infection, damage to nerves, vessels, persistent pain, wear, loosening, dislocation, leg length inequality, blood clots, medical problems and among others. She is aware that she does have quite a shallow acetabulum or at least some superior wear that may make that portion more challenging. She was re-consented today. Plan on proceeding with a left total hip arthroplasty, [place] stem.
[2020-10-09] MEDS ORDERED: oxyCODONE 5MG TAB As Ordered ONE (09:36)
[2020-10-09] MEDS: oxyCODONE 5MG TAB PO PRN ×2 (09:37→10:50)
--- NOTE | 2020-10-09 09:59 | REP ---
INDICATION: POST OP IN PACU. COMPARISON: 07/17/2019. TECHNIQUE: Two views performed postoperatively. FINDINGS: There is a total hip arthroplasty as an interval change with the components in satisfactory position and alignment on both views. Skin ina are incidentally identified. IMPRESSION: Total hip arthroplasty as described. <Electronically signed by Thony Frye > 10/09/20 0900
[2020-10-09] MEDS ORDERED: LR 1,000 ML IV SCH (10:00)
[2020-10-09] MEDS ORDERED: MORPHINE 2 MG/ML 1ML VIAL (J2270) IV PRN ×2 (10:00)
[2020-10-09] MEDS ORDERED: fentaNYL 100 MCG/2 ML INJECTION (J3010) IV PRN (10:00)
[2020-10-09] MEDS ORDERED: ONDANSETRON 4MG/2ML VIAL IV PRN ×2 (10:00)
[2020-10-09] MEDS ORDERED: MORPHINE 4 MG/ML 1ML VIAL/SYRINGE (J2270) IV PRN (10:00)
--- NOTE | 2020-10-09 10:39 | RO ---
OPERATIVE NOTE DATE OF OPERATION: 10/09/2020 PREOPERATIVE DIAGNOSIS: Left hip osteoarthritis. POSTOPERATIVE DIAGNOSIS: Left hip osteoarthritis. PROCEDURE: Left total hip arthroplasty using a [place] size 5 high-offset, +5, 32 ball, 52 acetabular component, polyethylene liner. SURGEON: Koko Galvin M.D. SHOTGUN SHELL LOADING MACHINE OPERATOR: Kevin Thompson PA-C ANESTHESIA: Spinal. EBL: 200. COMPLICATIONS: None. PROCEDURE: The patient was taken to the operating room and placed in the right lateral decubitus position on the [place] positioner. All areas were padded appropriately. The left hip was prepped and draped in the usual sterile fashion. A timeout was performed. A longitudinal incision was made over the lateral aspect of the hip and sharp dissection was carried down through the subcutaneous tissue, controlled hemostasis with cautery, incised the fascia margaret, identified the abductors which were significantly atrophied and avulsed from the trochanter. I then divided the anterior 40% of the abductors and gradually exposed the femoral head and dislocated without difficulty. She had a very arthritic hip with somewhat misshapen acetabulum and flattened femoral head. She had significant amount of effusion as well. I then used the canal-initiating reamer and the canal-finding reamer and the lateralizing reaming on the femoral side and reamed up to a size 5 which had good purchase. I made the neck cut at about 3/4 of a fingerbreadth up from the lesser trochanter and removed the head. We directed our attention was to the acetabulum. There was a significant amount of soft tissue in the acetabulum, this was cleaned out with a cautery and it was noted that I was able to deepen the acetabulum a fair amount to medialize this and to obtain concentric reaming for acetabular component placement. I then sequentially reamed starting with a 46 and then reamed up to a 51, medializing this down to the floor and was able to get good concentric reaming and good bleeding bone. I was not able to go any larger. There were no significant cysts that needed debriding. I irrigated copiously and then impacted in a 52 acetabular component in appropriate amount of anteversion and horizontal tilt using the guide. This was a very well seated component. I was able to void the portion where there was some superior acetabular wear and I was able to place the cup in an anatomic position. I then placed the apex hole eliminator, made sure that the cup was well seated. I then impacted in 52 x 32 liner and made sure that this was well seated. We then directed our attention back to the femoral side and then broached up to size 5 which had good purchase and good fit and fill. I did use the calcar planer to smooth this off. I then trialed the +1.5 and the +5 high offset which met her anatomy better and +5 had excellent stability in range of motion and no impingement. I had removed some osteophytes from the posterior aspect of the acetabulum previously. I then irrigated the canal and impacted in the size 5 high offset [place], made sure this was well seated. I dried the [place] taper and placed +5 ball, impacted this in place and reduced the hip. The hip was put through range of motion, there was minimal shuck in full extension, there was excellent stability in extension, external rotation, flexion and internal rotation. The tissues were then copiously irrigated. I then repaired the minimus with #1 Vicryl suture, the abductor with #1 Vicryl suture but I did roughen up the bare area on the greater trochanter with a saw to allow for better reattachment of the abductors. TXA was placed deep in the wound as well as Exparel. I then repaired the abductor with #1 Vicryl suture with several stitches being placed through the bone. Overall good repair was noted. I irrigated, repaired the fascia margaret with #1 Vicryl suture and running Stratafix suture in both directions, irrigated again and closed the subcu with 2-0 Vicryl and the skin with ina. A sterile dressing was applied. She was taken to the recovery room in stable condition. There were no known complications. Her leg lengths appeared to be symmetric. The review assistant was instrumental in holding retractors and assisting in reducing and dislocating the hip and assisting in wound closure.
[2020-10-09] MEDS: LR 1,000 ML IV SCH (10:50)
[2020-10-09] MEDS: PERCOCET 5MG/325MG TAB PO PRN ×2 (12:09→16:44)
--- NOTE | 2020-10-09 12:14 | HPEPDOC ---
[facility] Medical History & Physical Date of Admission Oct 09, 2020 Date of Service: Oct 09, 2020 Attending Physician: Tran Manzanares MD History and Physical MEDICAL H&P HISTORY OF PRESENT ILLNESS: Patient is a 80 y/o F with PMH of osteoarthritis of left hip, HTN, GERD, hypothyroidism, anxiety, depression, HLD who presented to [facility] for elective left hip total arthroplasty on 10/09/20. According to history, patient has had progressively worsening left hip pain and stiffness. She had failed to improve with conservative treatment and continued to have pain with weightbearing activities and ADL. She has elected for surgery for her continued symptoms. Dr. Galvin was consenting orthopedic surgeon. On 10/09/20 surgery was performed without issue. Post-procedure, there were no complications. She denied chest pain, SOB, fevers, chills, n/v/d. Medicine was consulted to help medically manage with surgery. REVIEW OF SYSTEMS: Neg except mentioned above PAST MEDICAL HISTORY: 1. Osteoarthritis of left hip 2. HTN 3. GERD 4. Hypothyroidism 5. Anxiety 6. Depression 7. HLD PAST SURGICAL HISTORY: 1. Right hip replacement 2. Left total hip arthroplasty 10/09/20 FAMILY HISTORY: Father: dementia, at 94 y/o Mother: ovarian cancer, at 81 y/o SOCIAL HISTORY: Denies smoking, illicit drug use history. Drinks alcohol socially. Follows with Dr. Galvin- orthopedic surgery, PCP- Anne-Marie Najera. At baseline uses a walker and cane to ambulate ALLERGIES: Please see below. HOME MEDICATIONS: Please see below. PHYSICAL EXAMINATION: VS: Please see below CONSTITUTIONAL: No acute distress, resting comfortably, AAO x 3 EYES: PERRLA, EOM intact HENT, MOUTH: Normocephalic, atraumatic, moist mucous membranes NECK: SUPPLE, no JVD, no lymphadenopathy, no carotid bruit CV: Regular rate and rhythm, S1S2 normal, no murmurs/rubs/gallops RESPIRATORY: Clear to auscultation bilaterally, no rales/rhonchi/wheezes GI: BS positive in 4 quadrants, soft, nontender, nondistended, no rebound or guarding, no organomegaly : Deferred MUSCULOSKELETAL: Normal ROM. No cyanosis, clubbing, swelling, joint deformity, extremity edema INTEGUMENTARY: Intact, no rashes, no lesions, no erythema NEUROLOGIC: Cranial Nerves II-XII are intact, no focal deficits PSYCHIATRIC: Mood and affect are normal LABORATORY DATA: Please see below IMAGING: F/u left hip post-op XR ASSESSMENT: 80 y/o F with PMH of osteoarthritis of left hip, HTN, GERD, hypothyroidism, anxiety, depression, HLD who presented to [facility] for elective left hip total arthroplasty on 10/09/20. PLAN: Osteoarthritis of left hip POD 0 left total hip arthroplasty -No complications during surgery -Pain control, PT/OT, wound care -Ortho primary service, f/u recommendations HTN -resume home losartan HLD -C/w statin Hypothyroidism -C/w levothyroxine Chronic pain 2/2 to osteoarthritis -C/w gabapentin, pain control PRN GERD -C/w PPI Anxiety/depression -Stable -C/w home duloxetine DVT px -Xarelto DISPOSITION: Thank you kindly for this consult. Will continue to follow while inpatient. Vital Signs Vital Signs Date Time Temp Pulse Resp B/P (MAP) Pulse Ox O2 Delivery O2 Flow Rate FiO2 10/09/20 10:05 97 66 16 178/75 (109) 98 Room Air 10/09/20 09:35 3 Home Medications Scheduled Atorvastatin Calcium (Atorvastatin Calcium) 10 Mg Tab, 10 MG PO DAILY Calcium Carbonate/Vitamin D3 (Calcium 600-Vit D3 200 Tablet) 1 Tab Tab, 1 TAB PO DAILY Cholecalciferol (Vitamin D3) (Vitamin D3) 1,000 Unit Tablet, 1,000 UNITS PO BID Diclofenac Sodium (Diclofenac Sodium) 50 Mg Tablet.dr, 50 MG PO TID Duloxetine Hcl (Cymbalta) 60 Mg Capsule.dr, 60 MG PO DAILY Esomeprazole Magnesium (Nexium) 40 Mg Cap, 40 MG PO DAILY Gabapentin (Gabapentin) 100 Mg Cap, 200 MG PO TID Gabapentin (Gabapentin) 300 Mg Capsule, 300 MG PO TID Garlic (Garlic) 500 Mg Capsule, 500 MG PO DAILY Levothyroxine Sodium (Levothyroxine Sodium) 25 Mcg Tab, 25 MCG PO DAILY Losartan Potassium (Losartan Potassium) 50 Mg Tablet, 50 MG PO DAILY Lutein/Zeaxanthin (Ocuvite Lutein 25-5 mg Softgel) 1 Each Capsule, 1 CAP PO DAILY Olopatadine HCl (Pazeo) 0.7% 2.5ML Drops, 1 DROP OU DAILY Psyllium Husk (with Sugar) (Metamucil Powder) 575 Gm Powder, 5 ML PO TID Scheduled PRN Fluticasone Propionate (Flonase Allergy Relief) 9.9 Ml [place].susp, 50 MCG NA DAILYPRN PRN for NASAL CONGESTION Allergies Coded Allergies: ENVIROMENTAL (Verified Allergy, Unknown, 04/04/10) A-FIB/CHADSVASC A-FIB History Current/History of A-Fib/PAF?: No Current PO Anticoag Therapy: No Age/Risk Factor Scoring CHADSVASC: CHADSVASC Response (Comments) Value Age Risk Factor Age >/= 75 years old 2 Gender Risk Factor Female 1 Hx of CHF No 0 Hx of HTN Yes 1 Hx of Stroke/TIA/or VTE No 0 Hx of Diabetes No 0 Hx of Vascular Disease No 0 Total 4 Treatment Treatment ordered: Other Other anticoagulant ordered: Tran Boston MD Oct 09, 2020 12:14
[2020-10-09] MEDS: ceFAZolin SOD 2 GM in IV 1 EA IV SCH (16:43)
[2020-10-09] MEDS ORDERED: FLUTICASONE PROP 0.05% NASAL SPRAY 16 GM (FLONASE) PRN (21:30)
[2020-10-09] MEDS: METAMUCIL (PSYLLIUM) PACKET PO SCH (22:33)
[2020-10-09] MEDS: GABAPENTIN 300 MG CAP PO SCH (22:33)
[2020-10-09] MEDS: VITAMIN D 1,000 INTERNATIONAL UNITS TABLET PO SCH (22:33)
[2020-10-09] MEDS: ACETAMINOPHEN TAB 650MG DOSE (2X325MG) PO PRN (22:34)
[2020-10-10] MEDS: LR 1,000 ML IV SCH (00:18)
[2020-10-10] MEDS: ceFAZolin SOD 2 GM in IV 1 EA IV SCH (00:58)
[2020-10-10 02:00] VITALS: BP 136/63
[2020-10-10] MEDS: PERCOCET 5MG/325MG TAB PO PRN ×2 (04:56→15:37)
[2020-10-10 06:00] VITALS: BP 126/64
[2020-10-10] MEDS: LEVOTHYROXINE 25MCG TABLET (0.025MG) PO SCH (06:28)
[2020-10-10] MEDS ORDERED: PERC5TAB12 PO (06:46)
[2020-10-10] MEDS ORDERED: XARE10TA PO (06:46)
[2020-10-10] MEDS: PANTOPRAZOLE 40MG TAB (PROTONIX) PO SCH (08:25)
[2020-10-10] MEDS: CALCIUM/VITAMIN D 500 MG TAB PO SCH (08:26)
[2020-10-10] MEDS: VITAMIN D 1,000 INTERNATIONAL UNITS TABLET PO SCH ×2 (08:26→20:07)
[2020-10-10] MEDS: GABAPENTIN 300 MG CAP PO SCH ×3 (08:27→20:07)
[2020-10-10] MEDS: LOSARTAN 50MG TABLET PO SCH (08:28)
[2020-10-10] MEDS: DULoxetine 30 MG CAP (CYMBALTA) PO SCH (08:28)
[2020-10-10] MEDS: ATORVASTATIN 10 MG TAB PO SCH (08:29)
[2020-10-10] MEDS: METAMUCIL (PSYLLIUM) PACKET PO SCH ×3 (08:29→20:07)
[2020-10-10 08:45] LABS: HEMOGLOBIN 8.9 g/dl (12.0-15.5); MEAN CORPUSCULAR HEMOGLOBIN 29.1 pg (27.0-33.0); MEAN CORPUSCULAR HGB CONC 31.8 g/dl (32.0-36.5); MEAN CORPUSCULAR VOLUME 91.5 fl (80.0-96.0); PLATELET COUNT, AUTOMATED 220 10^3/uL (150-450); RED BLOOD COUNT 3.06 10^6/uL (4.00-5.40); WHITE BLOOD COUNT 9.9 10^3/uL (4.0-10.0)
[2020-10-10] MEDS: MIRALAX *UNIT DOSE* 17GM PACKET PO SCH (09:00)
[2020-10-10] MEDS: MOM 30ML SUSPENSION UDC PO SCH (09:00)
[2020-10-10 10:00] VITALS: BP 133/63
[2020-10-10 14:00] VITALS: BP 131/66
[2020-10-10] MEDS: ACETAMINOPHEN TAB 650MG DOSE (2X325MG) PO PRN (14:13)
[2020-10-10] MEDS ORDERED: RIVAROXABAN 10 MG TAB (XARELTO) PO SCH (18:00)
[2020-10-10 22:00] VITALS: BP 116/47
[2020-10-11] MEDS: LEVOTHYROXINE 25MCG TABLET (0.025MG) PO SCH (05:56)
[2020-10-11 06:00] VITALS: BP 117/47
[2020-10-11] MEDS ORDERED: PERCOCET 5MG/325MG TAB PO PRN (06:00)
[2020-10-11 07:00] LABS: HEMATOCRIT 25.1 % (36.0-47.0); HEMOGLOBIN 8.3 g/dl (12.0-15.5); MEAN CORPUSCULAR HEMOGLOBIN 30.1 pg (27.0-33.0); MEAN CORPUSCULAR HGB CONC 33.1 g/dl (32.0-36.5); MEAN CORPUSCULAR VOLUME 90.9 fl (80.0-96.0); PLATELET COUNT, AUTOMATED 206 10^3/uL (150-450); RED BLOOD COUNT 2.76 10^6/uL (4.00-5.40); WHITE BLOOD COUNT 11.6 10^3/uL (4.0-10.0)
[2020-10-11] MEDS: METAMUCIL (PSYLLIUM) PACKET PO SCH (09:00)
[2020-10-11 09:30] VITALS: BP 117/47
[2020-10-11] MEDS: CALCIUM/VITAMIN D 500 MG TAB PO SCH (09:30)
[2020-10-11] MEDS: DULoxetine 30 MG CAP (CYMBALTA) PO SCH (09:30)
[2020-10-11] MEDS: LOSARTAN 50MG TABLET PO SCH (09:30)
[2020-10-11] MEDS: MOM 30ML SUSPENSION UDC PO SCH (09:30)
[2020-10-11] MEDS: GABAPENTIN 300 MG CAP PO SCH (09:30)
[2020-10-11] MEDS: PANTOPRAZOLE 40MG TAB (PROTONIX) PO SCH (09:30)
[2020-10-11] MEDS: ATORVASTATIN 10 MG TAB PO SCH (09:30)
[2020-10-11] MEDS: VITAMIN D 1,000 INTERNATIONAL UNITS TABLET PO SCH (09:30)
[2020-10-11] MEDS: MIRALAX *UNIT DOSE* 17GM PACKET PO SCH (09:31)
--- NOTE | 2020-10-14 16:35 | DSES ---
DISCHARGE SUMMARY DATE OF ADMISSION: 10/09/2020 DATE OF DISCHARGE: 10/11/2020 ADMISSION DIAGNOSIS: Osteoarthritis, left hip. OTHER DIAGNOSES: 1. Hypertension. 2. Gastric reflux disease. 3. Hypothyroidism. 4. Anxiety. 5. Depression. 6. Elevated lipids. DISCHARGE DIAGNOSIS: Osteoarthritis, left hip, status post left total hip arthroplasty. OPERATIVE PROCEDURE: Left total hip arthroplasty. HISTORY OF PRESENTING ILLNESS: This is a 80-year-old female patient who had progressively worsening left hip pain and stiffness. She failed to improve with conservative management. She was admitted for elective hip replacement on the left side. HOSPITAL COURSE: The patient was admitted on the day of surgery and underwent a left total hip arthroplasty, which was uneventful. She did well in the postoperative period and her hospital course without complications. She was up with physical therapy per their protocol and her pain was controlled. On the day of discharge, she was weightbearing as tolerated on her left lower extremity. DISCHARGE INSTRUCTIONS: She will use Xarelto 10 mg per the protocol for DVT prophylaxis. She will use JOCY stockings for 30 days postoperatively for DVT prophylaxis. She will resume her preoperative medications and diet. She will use oral pain medications for pain control. She will follow-up in our office in 10-14 days for surgical follow-up. Please refer to the medical record for further detail. She was given instructions to include, but not limited to wound monitoring and activity limitations.
== END 2020-10-11 12:20 | disposition home or self-care (01) | DRG 470 ==
LOC: M OR 06:22 → M MS5PR 10:35
PROVIDERS: ADMIT Orthopaedic Surgery; ATTEND Orthopaedic Surgery
PROC: 0SRB02Z Replacement of Left Hip Joint with Metal on Polyethylene Synthetic Substitute, Open Approach (ICD-10-PCS; principal; 2020-10-09 07:30)
DX: M16.12 Unilateral primary osteoarthritis, left hip (principal); E78.5 Hyperlipidemia, unspecified; E03.9 Hypothyroidism, unspecified; F41.9 Anxiety disorder, unspecified; I10 Essential (primary) hypertension; F32.9 Major depressive disorder, single episode, unspecified; K21.9 Gastro-esophageal reflux disease without esophagitis; J30.9 Allergic rhinitis, unspecified; R26.89 Other abnormalities of gait and mobility; Z79.899 Other long term (current) drug therapy; Z96.641 Presence of right artificial hip joint

== ENCOUNTER → 2020-10-23 | Outpatient (CLI) | payer MEDICARE ==
[~2020-10-23] MED LIST changes: +PERC5TAB12 PO; +XARE10TA PO
--- NOTE | 2020-10-29 06:42 | ECWPNPC ---
PATIENT NAME: KAMALA REEDER : 1940 GENDER: FEMALE VISIT DATE: 10/23/2020 DISCHARGE DATE: 10/23/20 1530 VISIT LOCKED DATE TIME: PHYSICIAN: CATHERINE NICOLE PHYSICIAN PAGER NO: ACTIVE RESOURCE: CATHERINE NICOLE REASON FOR APPOINTMENT 1. BACK PAIN HISTORY OF PRESENT ILLNESS PAIN CENTER INTAKE QUESTIONS: 80-YEAR-OLD FEMALE IN FOR CHRONIC PAIN FOLLOW-UP. PATIENT HAD RECENT HIP SURGERY WAS STARTED ON XARELTO SUCH SHE HAS HAD TO DISCONTINUE USE OF HER DICLOFENAC. SHE PRESENTS TODAY INQUIRING TO WHAT OTHER MEDICATIONS SHE COULD UTILIZE TO HELP WITH HER PAIN. GENERAL: -. FALL RISK SCREENING: SCREENING :ONE FALL WITHOUT INJURY IN THE PAST YEAR PAIN SCREENING: PATIENT HAS A COMPLAINT OF ACUTE OR CHRONIC PAIN :YES LOCATION OF PAIN:BOTH SHOULDERS, LOW BACK, KNEES INTENSITY OF PAIN (SCALE OF 1 TO 10):4 WHAT DOES YOUR PAIN FEEL LIKE:THROBBING DURATION:PERIODIC PAIN IS INCREASED BY:ACTIVITIES, PROLONGED STANDING, OTHERS STANDING, LAYING DOWN PAIN IS DECREASED BY:USE OF PAIN MEDICATIONS, SITTING NURSING NOTE: -. CURRENT MEDICATIONS TAKING SYSTANE 0.4-0.3 % SOLUTION 1 DROP INTO AFFECTED EYE NEEDED OPHTHALMIC 2-3 TIMES DAILY TAKING LUTEIN 6 MG CAPSULE 1 CAPSULE WITH A MEAL ORALLY ONCE A DAY TAKING PAZEO 0.7 % SOLUTION 1 DROP INTO AFFECTED EYE OPHTHALMIC ONCE A DAY TAKING METAMUCIL - PACKET 1 PACKET WITH 8 OUNCES OF LIQUID NEEDED ORALLY THREE TIMES A DAY TAKING GABAPENTIN 300 MG CAPSULE 1 CAPSULE ORALLY THREE TIMES PER DAY TAKING GLUCOSAMINE CHONDRO COMPLEX DAILY TAKING SYNTHROID 25 MCG TABLET 1 TABLET EVERY MORNING ON AN EMPTY STOMACH ORALLY ONCE A DAY TAKING ATORVASTATIN CALCIUM 10 MG TABLET 1 TABLET ORALLY ONCE A DAY TAKING DULOXETINE HCL 60 MG CAPSULE DELAYED RELEASE PARTICLES 1 CAPSULE ORALLY ONCE A DAY TAKING VITAMIN D 1000 UNIT TABLET 2 TABS ORALLY ONCE A DAY WITH A MEAL TAKING CALCIUM 600 + D 600-400 MG-UNIT TABLET 1 TABLET ORALLY ONCE A DAY TAKING LOSARTAN POTASSIUM 50 MG TABLET 1 TABLET ORALLY ONCE A DAY TAKING NEXIUM 40 MG CAPSULE DELAYED RELEASE 1 CAPSULE ORALLY DAILY TAKING XARELTO 10 MG TABLET 1 TABLET WITH FOOD ORALLY ONCE A DAY NOT-TAKING DICLOFENAC SODIUM 50 MG TABLET DELAYED RELEASE 1 TABLET WITH FOOD OR MILK ORALLY THREE TIMES A DAY MEDICATION LIST REVIEWED AND RECONCILED WITH THE PATIENT PAST MEDICAL HISTORY HYPERLIPIDEMIA HYPOTHYROIDISM OSTEOARTHRITIS ALLERGIC RHINITIS ESOPHAGEAL REFLUX DRY EYES ANXIETY TINNITUS - EVALUATED AT AUDIOLOGY AND ENT ALLERGIC RHINITIS OSTEOPENIA - SPINE, DEXA 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 ALLERGIES ENVIRONMENTAL: SINUS CONGESTION - ALLERGY CHLORTHALIDONE: HYPONATREMIA - SIDE EFFECTS LISINOPRIL: COUGH - SIDE EFFECTS SURGICAL HISTORY CYST REMOVAL - SHOULDER RIGHT HIP REPLACEMENT 04/03 EGD - HH, BX W/INFLAMMATION, VINCE 03/13 COLONOSCOPY - DIVERTICULOSIS, INTERNAL HEMORRHOIDS, MICROSCOPIC COLITIS VINCE 03/13 HIP REPLACEMEANT LEFT 10/09/2020 FAMILY HISTORY FATHER: MOTHER: , DIAGNOSED WITH OTHER MALIGNANT NEOPLASM OF UNSPECIFIED SITE 3 BROTHER(S) , 2 SISTER(S) . 2 SON(S) , 2 DAUGHTER(S) . BROTHER - , GRAND MAL SEIZURES\\\\\\\\NBROTHER - HEART DISEASE\\\\\\\\NDAUGHTER - RHEUMATOID ARTHRITIS. SOCIAL HISTORY GENERAL: TOBACCO USE ARE YOU A:NONSMOKER NEVER SMOKER LATEX QUESTIONNAIRE LATEX ALLERGY : HAVE YOU EVER DEVELOPED ANY TYPE OF REACTION AFTER HANDLING LATEX PRODUCTS SUCH RUBBER GLOVES, CONDOMS, DIAPHRAGMS, BALLOONS, SOCKS, OR UNDERWEAR?NO LATEX ALLERGY : HAVE YOU EVER DEVELOPED ANY TYPE OF REACTION DURING OR AFTER DENTAL APPOINTMENT, VAGINAL/RECTAL EXAMINATION, SURGICAL PROCEDURE, OR ANY OTHER EXPOSURE?NO LATEX RISK : HAVE YOU EVER HAD ANY DIFFICULTY BREATHING OR HIVES AFTER EATING OR HANDLING ANY FRUITS, OR VEGETABLES; SUCH KIWI, BANANAS, STONE FRUITS, OR CHESTNUTSNO LATEX RISK : DO YOU HAVE A PREVIOUS PERSONAL HISTORY OF MORE THAN NINE SURGERIES, SPINA BIFIDA, OR REPEATED CATHERIZATIONS? NO LATEX RISK : ARE YOU FREQUENTLY EXPOSED TO LATEX PRODUCTS IN YOUR OCCUPATION?NO DATE ASKED : 10/23/2020 BMI CARE GOAL FOLLOW-UP ABOVE NORMAL BMI FOLLOW-UPGIVING ENCOURAGEMENT TO EXERCISE ALCOHOL SCREENING DID YOU HAVE A DRINK CONTAINING ALCOHOL IN THE PAST YEAR?NO POINTS0 INTERPRETATIONNEGATIVE RECREATIONAL DRUG USE DENIES. CAFFEINE 2/DAY COFFEE, PLUS HERBAL TEA. SEXUAL HX HAD SEX IN THE LAST 12 MONTHS (VAGINAL, ORAL, OR ANAL)?NO HAVE YOU EVER HAD AN STD?NO HIV / HEP-C SCREENING HIV TEST OFFERED TO PATIENT:NO HEP-C TEST OFFERED TO PATIENT:NO ZOROASTRIAN ZOROASTRIAN NO LATTER DAY BELIEFS THAT WOULD IMPACT HEALTH CARE. LANGUAGE LANGUAGES SPOKEN:ST HELENIAN EDUCATION LEVEL OF EDUCATION:HIGH SCHOOL LEARNING BARRIERS / SPECIAL NEEDS CHANGE FROM LAST VISIT?NO BARRIERS TO LEARNING?NO HEARING IMPAIRED?NO VISION IMPAIRED?YES COGNITIVELY IMPAIRED?NO :CORRECTIVE LENSES READINESS TO LEARN?YES LEARNING PREFERENCES?YES :TAPES/VIDEOS, BOOKLETS, HANDOUTS LEARNING CAPABILITIES PRESENT?YES EMOTIONAL BARRIERS?NO SPECIAL DEVICES?YES :CANE, WALKER PACKAGING ASSOCIATE NEEDED?NO DOMESTIC VIOLENCE DENIES SEXUAL, PHYSICAL ABUSE, VERBAL ABUSE. 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 DIET: NO HX EATING DISORDERS, LOW FAT, LOW CHOLESTEROL, NO ADDED SALT. EXERCISE: DAILY, WALKS, FARMS, GARDENS. MARITAL STATUS: (SPOUSE NOW RETIRED). OTHERS AT HOME: SPOUSE. TODAY'S VISITNOTES PATIENT DESCRIBES PAIN :ACHING, HAVE IT ALL THE TIME FROM 0-10, WHAT LEVEL IS YOUR PAIN TODAY?2 PRECIPITATING FACTORS ACTIVITIES, WALKING ALLEVIATING FACTORS SITTING PAIN CLINIC PFS, CLERGY, PUBLIC HEALTH REFERRALS HAS THE PATIENT BEEN EDUCATED REGARDING HIS/HER PLAN OF CARE?YES HAS THE PATIENT BEEN EDUCATED REGARDING PAIN, THE RISK FOR PAIN, THE IMPORTANCE OF EFFECTIVE PAIN MANAGEMENT, AND THE PAIN ASSESSMENT PROCESS?YES ADVANCE DIRECTIVE ADVANCE DIRECTIVE DISCUSSED WITH PATIENT:YES HCP - JENNI SOLIS (DAUGHTER) HOSPITALIZATION/MAJOR DIAGNOSTIC PROCEDURE SURGERIES REVIEW OF SYSTEMS CONSTITUTIONAL: ANY RECENT FEVER NO . CHILLS NO . WEIGHT CHANGE OF UNKNOWN REASONS NO . GASTROENTEROLOGY: NEW UNEXPLAINABLE CHANGES IN BOWEL CONTROL NO . CONSTIPATION NO . GENITOURINARY: ANY NEW CHANGE IN BLADDER CONTROL? NO . NEUROLOGY: NEW ONSET DIZZINESS OR NEUROLOGICAL CHANGES NOT MENTIONED NO . NEW NUMBNESS OR PAIN PATTERNS NOT MENTIONED AND PERTINENT TO TODAY'S VISIT NO . CARDIOLOGY: NEW CHEST PRESSURE NO . NEW CHEST PAIN NO . RESPIRATORY: UNEXPLAINABLE COUGH NO . NEW SHORTNESS OF BREATH NO . VITAL SIGNS WT 177.2 LBS, HT 62.25 IN, BMI 32.15 INDEX, BP 144/60 MM HG, HR 88 /MIN, RR 20 /MIN, TEMP 96.5 F, OXYGEN SAT % 99%, SAFE IN ENV? (Y/N) YES, NA INITIALS MT 14:46, REVIEWED BY: JAMEY IYER. EXAMINATION GENERAL EXAMINATION: GENERALNO ACUTE DISTRESS, WELL NOURISHED AND HYDRATED. PSYCHAPPROPRIATE MOOD AND AFFECT . LUNGS:CLEAR TO AUSCULTATION BILATERALLY, NO WHEEZES, RHONCHI, RALES. HEART:NO MURMURS, REGULAR RATE AND RHYTHM. ASSESSMENTS LUMBAR FACET ARTHROPATHY - M46.96 (PRIMARY) TREATMENT LUMBAR FACET ARTHROPATHY START ACETAMINOPHEN TABLET, 500 MG, 2 TABLET NEEDED, ORALLY, EVERY 8 HRS FOR PAIN, 30 DAYS, 180 NOTES: 80-YEAR-OLD FEMALE IN FOR CHRONIC PAIN FOLLOW-UP. PATIENT ADMITS TO TAKING TYLENOL STATUS POST HER HIP SURGERY INSTEAD OF THE OXYCODONE AND ACETAMINOPHEN THAT SHE WAS PRESCRIBED. SHE FURTHER STATES THE TYLENOL HAS BEEN HELPFUL. GIVEN PRESENTING SYMPTOMS RECOMMEND EXTRA STRENGTH TYLENOL 500 MG 2 TABS 3 TIMES A DAY NEEDED FOR PAIN NOT TO EXCEED 3 G IN A DAY. PATIENT WAS REMINDED THAT SHOULD SHE DECIDE TO TAKE THE PERCOCET SHE WAS PRESCRIBED BY ORTHO SHE NEEDS TO CALCULATE THE 325 MG AND ADD TO HER TOTAL TYLENOL DOSAGE FOR THE DAY. PATIENT HAS EXPRESSED UNDERSTANDING OF AND WAS IN AGREEMENT WITH TREATMENT PLAN. GIVEN TIME TO ASK QUESTIONS AND EXPRESS CONCERNS. TYLENOL DRUG INFORMATION SHEETS PRINTED AND REVIEWED WITH PATIENT. PATIENT ALSO INSTRUCTED THAT IS SHE STARTS TO USE PERCOCET PERSCRIBED FOR POST OP LEFT HI REPLACEMENT TO NOT USE THE ES TYLENOL ALSO. PATIENT VERBLAIZES UNDERSTANDING OF INSTRUCTIONS PROVIED. 10/23/2020 Krystal GUPTA RN. PROCEDURE CODES FA211 ESTABILISHED PATIENT [facility] CHARGE DISPOSITION & COMMUNICATION FOLLOW UP 3 MONTHS (REASON: BACK PAIN) ELECTRONICALLY SIGNED BY NEGRITA CHAVEZ ON 10/28/2020 AT 10:37 AM EST DISCLAIMER : THIS IS A VISIT SUMMARY EXTRACTED FROM THE [employer] CHART. IT IS NOT A COPY OF THE [facility] PROGRESS NOTE. JEREMIAH
== END ==
LOC: M PAIN 14:30
PROVIDERS: ATTEND Family Medicine
DX: M46.96 Unspecified inflammatory spondylopathy, lumbar region (principal); G89.29 Other chronic pain; E03.9 Hypothyroidism, unspecified; K21.9 Gastro-esophageal reflux disease without esophagitis; Z86.59 Personal history of other mental and behavioral disorders; Z96.643 Presence of artificial hip joint, bilateral; Z88.8 Allergy status to other drugs, medicaments and biological substances; Z79.01 Long term (current) use of anticoagulants; Z79.899 Other long term (current) drug therapy

== ENCOUNTER → 2021-01-14 | Outpatient (CLI) | payer MEDICARE ==
[~2021-01-14] MED LIST changes: +GABA-282 PO; -GABA-843 PO
--- NOTE | 2021-01-14 19:14 | REPVR ---
PROCEDURE INFORMATION: Exam: MR Lumbar Spine Without Contrast Exam date and time: 01/14/2021 6:22 PM Age: 80 years old Clinical indication: Low back pain and sciatica; Left; Additional info: Sciatica, lt side TECHNIQUE: Imaging protocol: Multiplanar magnetic resonance images of the lumbar spine without intravenous contrast. COMPARISON: MRI-Spine, L.S. without con 03/21/2015 6:48 PM FINDINGS: Vertebrae: 4 mm of grade 1 degenerative anterolisthesis of L5 on S1. 2 mm of grade 1 degenerative anterolisthesis of L2 on L3 and L3 on L4. Mild lower lumbar dextroconvex scoliosis. No acute fracture seen. Spinal cord: The conus medullaris ends normally. Disc desiccation throughout. Disc height loss and spondylosis is marked at L4-L5, moderate at L2-L3 and L3-L4, mild elsewhere. T10-T11: Partially visualized on the sagittal imaging. Disc bulge, facet arthropathy and ligamentum flavum buckling causing mild central spinal canal stenosis. T11-T12: Evaluated on the sagittal imaging. Right eccentric disc osteophyte complex and severe right facet arthropathy causing severe right neural foraminal stenosis. T12-L1: Evaluated on the sagittal imaging. Mild disc bulge. Severe right and moderate left facet arthropathy and ligamentum flavum buckling. The central spinal canal remains patent. Probably moderate right neural foraminal stenosis. L1-L2: No significant interval change. Moderate diffuse disc bulge, facet arthropathy and ligamentum flavum buckling. The central spinal canal remains patent. Right lateral recess stenosis is mild. No significant foraminal stenoses. L2-L3: Moderate diffuse disc osteophyte complex, facet arthropathy and ligamentum flavum buckling. Central spinal canal stenosis is mild. [id number] right and mild left neural foraminal stenoses. L3-L4: Anterolisthesis with diffuse disc bulge. Severe facet arthropathy and ligamentum flavum buckling. In particular, severe right facet arthropathy with facet joint effusion. Mildly progressive central spinal canal stenosis, now moderate to severe in degree; a paucity of CSF between the cauda equina nerve roots. Previously, central spinal canal stenosis was moderate. [id number] bilateral neural foraminal stenoses, similar to prior. L4-L5: No significant interval change. Marked left eccentric disc osteophyte complex, facet arthropathy and ligamentum flavum buckling. Central spinal canal stenosis is mild. The left lateral recess is narrowed near the left L5 nerve root. Severe left neural foraminal stenosis, as before. No significant right neural foraminal narrowing. L5-S1: No significant interval change. Severe bilateral facet arthropathy, in particular on the right with facet joint effusion. Mild diffuse disc bulge. No significant central spinal canal stenosis. Mild bilateral neural foraminal stenoses, the exiting right L5 nerve root may contact far lateral disc bulge. Soft tissues: Nonspecific edema in the back subcutaneous fat potentially dependent/positional. Kidneys and ureters: The right kidney demonstrates a cyst. IMPRESSION: 1. Mildly progressive central spinal canal stenosis at L3-L4, now moderate to severe in degree. 2. Otherwise no significant interval change. 3. High-grade left lateral recess and neural foraminal stenoses again demonstrated at L4-L5. Electronically signed by: Salma Martinez On 01/14/2021 19:14:25 PM
== END ==
LOC: M RAD 17:22
PROVIDERS: ATTEND Orthopaedic Surgery
DX: M48.061 Spinal stenosis, lumbar region without neurogenic claudication (principal); M54.32 Sciatica, left side

== ENCOUNTER → 2021-01-20 | Outpatient (CLI) | payer MEDICARE ==
--- NOTE | 2021-01-22 05:55 | ECWPNPC ---
PATIENT NAME: KAMALA REEDER : 1940 GENDER: FEMALE VISIT DATE: 01/20/2021 DISCHARGE DATE: 01/20/21 1403 VISIT LOCKED DATE TIME: PHYSICIAN: CATHERINE NICOLE PHYSICIAN PAGER NO: ACTIVE RESOURCE: CATHERINE NICOLE REASON FOR APPOINTMENT 1. BACK PAIN HISTORY OF PRESENT ILLNESS DEPRESSION SCREENING: PHQ-2 (2015 EDITION) LITTLE INTEREST OR PLEASURE IN DOING THINGS?NOT AT ALL FEELING DOWN, DEPRESSED, OR HOPELESS?NOT AT ALL TOTAL SCORE0 80-YEAR-OLD FEMALE IN FOR CHRONIC PAIN FOLLOW-UP. AT LAST CLINIC VISIT PATIENT WAS STARTED ON EXTRA STRENGTH TYLENOL AND SHE ADMITS TODAY THAT THIS HAS BEEN BENEFICIAL. SHE RATES HER PAIN CURRENTLY AT A 2 OUT OF 10 AND DESCRIBES IT ACHING, CONTINUOUS, STABBING, THROBBING, AND NAGGING. GENERAL: -. FALL RISK SCREENING: SCREENING : NO FALLS REPORTED IN THE LAST YEAR. PAIN SCREENING: PATIENT HAS A COMPLAINT OF ACUTE OR CHRONIC PAIN :YES LOCATION OF PAIN:LOW BACK INTENSITY OF PAIN (SCALE OF 1 TO 10):2 WHAT DOES YOUR PAIN FEEL LIKE:ACHING, CONTINOUS, STABBING, THROBBING, OTHER NAGGING DURATION:CONTINOUS, CONSTANT PAIN IS INCREASED BY:ACTIVITIES, PROLONGED STANDING PAIN IS DECREASED BY:USE OF PAIN MEDICATIONS, SITTING ICE NURSING NOTE: -. PAIN CENTER INTAKE QUESTIONS: DO YOU HAVE A HISTORY OF MRSA? :NO DO YOU TAKE A BLOOD THINNERS? :NO DO YOU HAVE ANY BLEEDING DISORDERS? :NO ANY NEW NUMBNESS OR WEAKNESS IN YOUR LEGS OR ARMS? :NO ANY PACEMAKER,DEFIBRILLATOR, OR DORSAL COLUMN STIMULATOR? :NO DO YOU HAVE ANY RASHES OR OPEN SORES? :NO ARE YOU ALLERGIC TO IV DYE? :NO ARE YOU DIABETIC? :NO ANY NEW PROBLEMS WITH YOUR MEDICATIONS? :NO HAVE YOU RECEIVED A VACCINE IN THE PAST 30 DAYS? :YES IF SO WHAT VACCINE AND WHEN? FIRST COVID VACCINATION AROUND 12/25/2020 DO YOU PLAN TO RECEIVE A VACCINE IN THE NEXT 21 DAYS? :YES IF SO WHAT VACCINE AND WHEN? SECOND COVID VACCINATION SCHEDULED 01/24/2021 DO YOU NEED ANY PRESCRIPTION? :YES GABAPENTIN DO YOU TAKE ANY IMMUNOSUPPRESSIVE MEDICATIONS? :NO DO YOU HAVE ANY KIDNEY OR LIVER DISEASE? :NO IS THERE A CHANCE YOU COULD BE ? :NO ARE YOU BREAST FEEDING? :NO CURRENT MEDICATIONS TAKING SYSTANE 0.4-0.3 % SOLUTION 1 DROP INTO AFFECTED EYE NEEDED OPHTHALMIC 2-3 TIMES DAILY TAKING LUTEIN 6 MG CAPSULE 1 CAPSULE WITH A MEAL ORALLY ONCE A DAY TAKING PAZEO 0.7 % SOLUTION 1 DROP INTO AFFECTED EYE OPHTHALMIC ONCE A DAY TAKING METAMUCIL - PACKET 1 PACKET WITH 8 OUNCES OF LIQUID NEEDED ORALLY THREE TIMES A DAY TAKING GLUCOSAMINE CHONDRO COMPLEX DAILY TAKING DULOXETINE HCL 60 MG CAPSULE DELAYED RELEASE PARTICLES 1 CAPSULE ORALLY ONCE A DAY TAKING VITAMIN D 1000 UNIT TABLET 2 TABS ORALLY ONCE A DAY WITH A MEAL TAKING CALCIUM 600 + D 600-400 MG-UNIT TABLET 1 TABLET ORALLY ONCE A DAY TAKING XARELTO 10 MG TABLET 1 TABLET WITH FOOD ORALLY ONCE A DAY TAKING ACETAMINOPHEN 500 MG TABLET 2 TABLET NEEDED ORALLY EVERY 8 HRS FOR PAIN TAKING GABAPENTIN 300 MG CAPSULE 1 CAPSULE ORALLY THREE TIMES PER DAY TAKING DICLOFENAC SODIUM 50 MG TABLET DELAYED RELEASE 1 TABLET WITH FOOD OR MILK ORALLY THREE TIMES A DAY TAKING NEXIUM 40 MG CAPSULE DELAYED RELEASE 1 CAPSULE ORALLY DAILY TAKING CYMBALTA 60 MG CAPSULE DELAYED RELEASE PARTICLES TAKE ONE CAPSULE BY MOUTH EVERY DAY TAKING ATORVASTATIN CALCIUM 10 MG TABLET 1 TABLET ORALLY ONCE A DAY TAKING SYNTHROID 25 MCG TABLET 1 TABLET EVERY MORNING ON AN EMPTY STOMACH ORALLY ONCE A DAY TAKING LOSARTAN POTASSIUM 50 MG TABLET 1 TABLET ORALLY ONCE A DAY MEDICATION LIST REVIEWED AND RECONCILED WITH THE PATIENT PAST MEDICAL HISTORY HYPERLIPIDEMIA HYPOTHYROIDISM OSTEOARTHRITIS ALLERGIC RHINITIS ESOPHAGEAL REFLUX DRY EYES ANXIETY TINNITUS - EVALUATED AT AUDIOLOGY AND ENT ALLERGIC RHINITIS OSTEOPENIA - SPINE, DEXA 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 ALLERGIES ENVIRONMENTAL: SINUS CONGESTION - ALLERGY CHLORTHALIDONE: HYPONATREMIA - SIDE EFFECTS LISINOPRIL: COUGH - SIDE EFFECTS SURGICAL HISTORY CYST REMOVAL - SHOULDER RIGHT HIP REPLACEMENT 04/03 EGD - HH, BX W/INFLAMMATION, VINCE 03/13 COLONOSCOPY - DIVERTICULOSIS, INTERNAL HEMORRHOIDS, MICROSCOPIC COLITIS VINCE 03/13 HIP REPLACEMEANT LEFT 10/09/2020 SOCIAL HISTORY GENERAL: TOBACCO USE ARE YOU A:NONSMOKER NEVER SMOKER LATEX QUESTIONNAIRE LATEX ALLERGY : HAVE YOU EVER DEVELOPED ANY TYPE OF REACTION AFTER HANDLING LATEX PRODUCTS SUCH RUBBER GLOVES, CONDOMS, DIAPHRAGMS, BALLOONS, SOCKS, OR UNDERWEAR?NO LATEX ALLERGY : HAVE YOU EVER DEVELOPED ANY TYPE OF REACTION DURING OR AFTER DENTAL APPOINTMENT, VAGINAL/RECTAL EXAMINATION, SURGICAL PROCEDURE, OR ANY OTHER EXPOSURE?NO LATEX RISK : HAVE YOU EVER HAD ANY DIFFICULTY BREATHING OR HIVES AFTER EATING OR HANDLING ANY FRUITS, OR VEGETABLES; SUCH KIWI, BANANAS, STONE FRUITS, OR CHESTNUTSNO LATEX RISK : DO YOU HAVE A PREVIOUS PERSONAL HISTORY OF MORE THAN NINE SURGERIES, SPINA BIFIDA, OR REPEATED CATHERIZATIONS? NO LATEX RISK : ARE YOU FREQUENTLY EXPOSED TO LATEX PRODUCTS IN YOUR OCCUPATION?NO DATE ASKED : 01/20/2021 ALCOHOL USE: NO. BMI CARE GOAL FOLLOW-UP ABOVE NORMAL BMI FOLLOW-UPGIVING ENCOURAGEMENT TO EXERCISE ALCOHOL SCREENING DID YOU HAVE A DRINK CONTAINING ALCOHOL IN THE PAST YEAR?NO POINTS0 INTERPRETATIONNEGATIVE RECREATIONAL DRUG USE DENIES. CAFFEINE 2/DAY COFFEE, PLUS HERBAL TEA. SEXUAL HX HAD SEX IN THE LAST 12 MONTHS (VAGINAL, ORAL, OR ANAL)?NO HAVE YOU EVER HAD AN STD?NO HIV / HEP-C SCREENING HIV TEST OFFERED TO PATIENT:NO HEP-C TEST OFFERED TO PATIENT:NO JUDAISM JUDAISM NO TEMPLE BELIEFS THAT WOULD IMPACT HEALTH CARE. LANGUAGE LANGUAGES SPOKEN:NEPALI EDUCATION LEVEL OF EDUCATION:HIGH SCHOOL LEARNING BARRIERS / SPECIAL NEEDS CHANGE FROM LAST VISIT?NO BARRIERS TO LEARNING?NO HEARING IMPAIRED?NO VISION IMPAIRED?YES :CORRECTIVE LENSES COGNITIVELY IMPAIRED?NO READINESS TO LEARN?YES LEARNING PREFERENCES?YES :TAPES/VIDEOS, BOOKLETS, HANDOUTS LEARNING CAPABILITIES PRESENT?YES EMOTIONAL BARRIERS?NO SPECIAL DEVICES?YES :CANE, WALKER LOGISTICS TEAM LEADER NEEDED?NO DOMESTIC VIOLENCE DENIES SEXUAL, PHYSICAL ABUSE, VERBAL ABUSE. 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 DIET: NO HX EATING DISORDERS, LOW FAT, LOW CHOLESTEROL, NO ADDED SALT. EXERCISE: DAILY, WALKS, FARMS, GARDENS. MARITAL STATUS: (SPOUSE NOW RETIRED). OTHERS AT HOME: SPOUSE. TODAY'S VISITNOTES PATIENT DESCRIBES PAIN :ACHING, HAVE IT ALL THE TIME FROM 0-10, WHAT LEVEL IS YOUR PAIN TODAY?2 PRECIPITATING FACTORS ACTIVITIES, WALKING ALLEVIATING FACTORS SITTING - HAS THE PATIENT BEEN EDUCATED REGARDING HIS/HER PLAN OF CARE?YES HAS THE PATIENT BEEN EDUCATED REGARDING PAIN, THE RISK FOR PAIN, THE IMPORTANCE OF EFFECTIVE PAIN MANAGEMENT, AND THE PAIN ASSESSMENT PROCESS?YES ADVANCE DIRECTIVE ADVANCE DIRECTIVE DISCUSSED WITH PATIENT:YES HCP - JENNI SOLIS (DAUGHTER) HOSPITALIZATION/MAJOR DIAGNOSTIC PROCEDURE SURGERIES REVIEW OF SYSTEMS CONSTITUTIONAL: ANY RECENT FEVER NO . CHILLS NO . WEIGHT CHANGE OF UNKNOWN REASONS NO . GASTROENTEROLOGY: NEW UNEXPLAINABLE CHANGES IN BOWEL CONTROL NO . CONSTIPATION NO . GENITOURINARY: ANY NEW CHANGE IN BLADDER CONTROL? NO . NEUROLOGY: NEW ONSET DIZZINESS OR NEUROLOGICAL CHANGES NOT MENTIONED NO . NEW NUMBNESS OR PAIN PATTERNS NOT MENTIONED AND PERTINENT TO TODAY'S VISIT NO . CARDIOLOGY: NEW CHEST PRESSURE NO . PATIENT DENIES NO . RESPIRATORY: UNEXPLAINABLE COUGH NO . NEW SHORTNESS OF BREATH NO . VITAL SIGNS WT 175.4 LBS, HT 62.25 IN, BMI 31.82 INDEX, BP 175/78 MM HG, REPEAT BP 138/76 MANUAL, HR 85 /MIN, RR 20 /MIN, TEMP 98.4 F, OXYGEN SAT % 98%, SAFE IN ENV? (Y/N) YES, REVIEWED BY: RUTHIE BP LEFT ARM 138/76. BRUCE EASLEY MA. EXAMINATION GENERAL EXAMINATION: GENERALNO ACUTE DISTRESS, WELL NOURISHED AND HYDRATED. PSYCHAPPROPRIATE MOOD AND AFFECT . LUNGS:CLEAR TO AUSCULTATION BILATERALLY, NO WHEEZES, RHONCHI, RALES. HEART:NO MURMURS, REGULAR RATE AND RHYTHM. ASSESSMENTS LUMBAR FACET ARTHROPATHY - M46.96 (PRIMARY), RISK: (NULL) TREATMENT LUMBAR FACET ARTHROPATHY REFILL ACETAMINOPHEN TABLET, 500 MG, 2 TABLET NEEDED, ORALLY, EVERY 8 HRS FOR PAIN, 30 DAY(S), 180, REFILLS 2 NOTES: 80-YEAR-OLD FEMALE IN FOR CHRONIC PAIN FOLLOW-UP. GIVEN PRESENTING SYMPTOMS RECOMMENDED CONTINUATION OF CURRENT MEDICATION REGIMEN WITH FOLLOW-UP IN 3 MONTHS. THIS DIRECTOR MISSION DID ENCOURAGE PATIENT TO TAKE MEDICATIONS ON A MORE REGULAR BASIS WHEN SHE IS EXPERIENCING A FLAREUP IN HER SYMPTOMS AND PATIENT WAS AMENABLE TO THIS. PATIENT HAS EXPRESSED UNDERSTANDING OF AND WAS IN AGREEMENT WITH TREATMENT PLAN. GIVEN TIME TO ASK QUESTIONS AND EXPRESS CONCERNS. PROCEDURE CODES FA211 ESTABILISHED PATIENT [facility] CHARGE DISPOSITION & COMMUNICATION FOLLOW UP 3 MONTHS (REASON: BACK PAIN) ELECTRONICALLY SIGNED BY NEGRITA CHAVEZ ON 01/21/2021 AT 10:07 AM EDT DISCLAIMER : THIS IS A VISIT SUMMARY EXTRACTED FROM THE [employer] CHART. IT IS NOT A COPY OF THE [employer] PROGRESS NOTE. JEREMIAH
== END ==
LOC: M PAIN 13:30
PROVIDERS: ATTEND Family Medicine
DX: M46.96 Unspecified inflammatory spondylopathy, lumbar region (principal); E78.5 Hyperlipidemia, unspecified; E03.9 Hypothyroidism, unspecified; J30.9 Allergic rhinitis, unspecified; K21.9 Gastro-esophageal reflux disease without esophagitis; H04.123 Dry eye syndrome of bilateral lacrimal glands; F41.9 Anxiety disorder, unspecified; M85.88 Other specified disorders of bone density and structure, other site; M17.0 Bilateral primary osteoarthritis of knee; Z79.01 Long term (current) use of anticoagulants; Z79.899 Other long term (current) drug therapy; Z88.8 Allergy status to other drugs, medicaments and biological substances; Z96.643 Presence of artificial hip joint, bilateral

== ENCOUNTER → 2021-02-24 | Outpatient (CLI) | payer MEDICARE ==
--- NOTE | 2021-02-24 10:30 | REP ---
INDICATION: N28.1 CYST OF R KIDNEY COMPARISON: Correlation with MRI dated 01/14/2021 TECHNIQUE: Real time bautista scale ultrasound examination using curved array transducer with limited Doppler evaluation. FINDINGS: Bilateral kidneys are normal in contour, size, echogenicity, and reniform shape without hydronephrosis, nephrolithiasis, or renal mass lesion. The right kidney measures 9.3 x 4.6 x 6.8 cm (RI 0.67) without obvious cyst. The left kidney measures 10.2 x 4.9 x 3.7 cm (RI 0.69) with 8 mm simple peripelvic cyst. Bladder is grossly unremarkable as visualized. IMPRESSION: Small simple cyst identified in the left kidney. No right renal cyst identified by ultrasound. <Electronically signed by Papo Ann > 02/24/21 102
== END ==
LOC: M WHC 09:12
PROVIDERS: ATTEND Nurse Practitioner Family
DX: N28.1 Cyst of kidney, acquired (principal)

== ENCOUNTER → 2021-03-14 | Outpatient (REF) | payer MEDICARE ==
[2021-03-14 13:38] LABS: ALBUMIN 3.8 GM/DL (3.2-5.2); ALT/SGPT 23 U/L (12-78); BILIRUBIN,TOTAL 0.3 MG/DL (0.2-1.0); BLOOD UREA NITROGEN 23 MG/DL (7-18); CALCIUM LEVEL 8.6 MG/DL (8.8-10.2); CARBON DIOXIDE LEVEL 29 MEQ/L (21-32); CHLORIDE LEVEL 105 MEQ/L (98-107); CHOLESTEROL LEVEL 220 MG/DL (<200); FREE T4 0.84 NG/DL (0.76-1.46); GLOMERULAR FILTRATION RATE > 60.0 (>39); GLUCOSE, FASTING 92 MG/DL (70-100); HDL CHOLESTEROL 50 MG/DL (>40); LDL CHOLESTEROL 143 MG/DL (<100); NON-HDL-C 170 MG/DL; POTASSIUM SERUM 4.5 MEQ/L (3.5-5.1); SODIUM LEVEL 139 MEQ/L (136-145); TOTAL 25(OH) VITAMIN D 32.4 NG/ML (30.0-100.0); TOTAL PROTEIN 7.1 GM/DL (6.4-8.2); TRIGLYCERIDES LEVEL 134 MG/DL (<150)
[2021-03-14 17:36] LABS: CREATININE, URINE 80.8 MG/DL; MALB URINE SIEMENS 5.9 MG/L; MAU/CREAT RATIO 7.3 MCG/MG (0.0-30.0)
== END ==
LOC: M SFHCADAM 09:28
PROVIDERS: ATTEND Nurse Practitioner Family
DX: I10 Essential (primary) hypertension (principal); E03.9 Hypothyroidism, unspecified; E78.2 Mixed hyperlipidemia; E55.9 Vitamin D deficiency, unspecified; Z79.891 Long term (current) use of opiate analgesic; Z79.899 Other long term (current) drug therapy

== ENCOUNTER → 2021-04-24 | Outpatient (CLI) | payer MEDICARE ==
--- NOTE | 2021-04-25 23:30 | ECWPNPC ---
PATIENT NAME: KAMALA REEDER : 1940 GENDER: FEMALE VISIT DATE: 04/24/2021 DISCHARGE DATE: 04/24/21 1433 VISIT LOCKED DATE TIME: PHYSICIAN: CATHERINE NICOLE PHYSICIAN PAGER NO: ACTIVE RESOURCE: CATHERINE NICOLE REASON FOR APPOINTMENT 1. BACK PAIN HISTORY OF PRESENT ILLNESS GENERAL: HPI 80-YEAR-OLD FEMALE IN FOR CHRONIC PAIN FOLLOW-UP. PATIENT FEELS HER MEDICATIONS ARE HELPFUL AND DENIES MED SIDE EFFECTS AT THIS TIME. PATIENT DOES ADMIT TO STOPPING DICLOFENAC SHE DID NOT LIKE THE POTENTIAL RISKS OF SIDE EFFECTS.. -. FALL RISK SCREENING: SCREENING : NO FALLS REPORTED IN THE LAST YEAR. PAIN SCREENING: PATIENT HAS A COMPLAINT OF ACUTE OR CHRONIC PAIN :YES LOCATION OF PAIN:LOW BACK INTENSITY OF PAIN (SCALE OF 1 TO 10):3 WHAT DOES YOUR PAIN FEEL LIKE:ACHING, CONTINOUS, OTHER TIGHTNESS DURATION:CONTINOUS, CONSTANT, ALL DAY PAIN IS INCREASED BY:ACTIVITIES PAIN IS DECREASED BY:USE OF PAIN MEDICATIONS NURSING NOTE: -. PAIN CENTER INTAKE QUESTIONS: DO YOU HAVE A HISTORY OF MRSA? :NO DO YOU TAKE A BLOOD THINNERS? :NO DO YOU HAVE ANY BLEEDING DISORDERS? :NO ANY NEW NUMBNESS OR WEAKNESS IN YOUR LEGS OR ARMS? :YES BOTH KNEES ANY PACEMAKER,DEFIBRILLATOR, OR DORSAL COLUMN STIMULATOR? :NO DO YOU HAVE ANY RASHES OR OPEN SORES? :NO ARE YOU ALLERGIC TO IV DYE? :NO ARE YOU DIABETIC? :NO ANY NEW PROBLEMS WITH YOUR MEDICATIONS? :NO HAVE YOU RECEIVED A VACCINE IN THE PAST 30 DAYS? :YES IF SO WHAT VACCINE AND WHEN? FIRST COVID VACCINATION AROUND 12/25/2020 DO YOU PLAN TO RECEIVE A VACCINE IN THE NEXT 21 DAYS? :YES IF SO WHAT VACCINE AND WHEN? SECOND COVID VACCINATION SCHEDULED 01/24/2021 DO YOU NEED ANY PRESCRIPTION? :YES GABAPENTIN DO YOU TAKE ANY IMMUNOSUPPRESSIVE MEDICATIONS? :NO DO YOU HAVE ANY KIDNEY OR LIVER DISEASE? :NO IS THERE A CHANCE YOU COULD BE ? :NO ARE YOU BREAST FEEDING? :NO CURRENT MEDICATIONS TAKING SYSTANE 0.4-0.3 % SOLUTION 1 DROP INTO AFFECTED EYE NEEDED OPHTHALMIC 2-3 TIMES DAILY TAKING LUTEIN 6 MG CAPSULE 1 CAPSULE WITH A MEAL ORALLY ONCE A DAY TAKING PAZEO 0.7 % SOLUTION 1 DROP INTO AFFECTED EYE OPHTHALMIC ONCE A DAY TAKING METAMUCIL - PACKET 1 PACKET WITH 8 OUNCES OF LIQUID NEEDED ORALLY THREE TIMES A DAY TAKING GLUCOSAMINE CHONDRO COMPLEX DAILY TAKING ACETAMINOPHEN 500 MG TABLET 2 TABLET NEEDED ORALLY EVERY 8 HRS FOR PAIN TAKING VITAMIN D 1000 UNIT TABLET 2 TABS ORALLY ONCE A DAY WITH A MEAL TAKING CALCIUM 600 + D 600-400 MG-UNIT TABLET 1 TABLET ORALLY ONCE A DAY TAKING GABAPENTIN 300 MG CAPSULE 1 CAPSULE ORALLY THREE TIMES PER DAY TAKING NEXIUM 40 MG CAPSULE DELAYED RELEASE 1 CAPSULE ORALLY DAILY TAKING CYMBALTA 60 MG CAPSULE DELAYED RELEASE PARTICLES TAKE ONE CAPSULE BY MOUTH EVERY DAY TAKING ATORVASTATIN CALCIUM 10 MG TABLET 1 TABLET ORALLY ONCE A DAY TAKING LOSARTAN POTASSIUM 50 MG TABLET 1 TABLET ORALLY ONCE A DAY TAKING DULOXETINE HCL 60 MG CAPSULE DELAYED RELEASE PARTICLES 1 CAPSULE ORALLY ONCE A DAY TAKING SYNTHROID 25 MCG TABLET 1 TABLET EVERY MORNING ON AN EMPTY STOMACH ORALLY ONCE A DAY NOT-TAKING DICLOFENAC SODIUM 50 MG TABLET DELAYED RELEASE 1 TABLET WITH FOOD OR MILK ORALLY THREE TIMES A DAY MEDICATION LIST REVIEWED AND RECONCILED WITH THE PATIENT PAST MEDICAL HISTORY HYPERLIPIDEMIA HYPOTHYROIDISM OSTEOARTHRITIS ALLERGIC RHINITIS ESOPHAGEAL REFLUX DRY EYES ANXIETY TINNITUS - EVALUATED AT AUDIOLOGY AND ENT ALLERGIC RHINITIS OSTEOPENIA - SPINE, DEXA 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 ALLERGIES ENVIRONMENTAL: SINUS CONGESTION - ALLERGY CHLORTHALIDONE: HYPONATREMIA - SIDE EFFECTS LISINOPRIL: COUGH - SIDE EFFECTS SOCIAL HISTORY GENERAL: TOBACCO USE ARE YOU A:NONSMOKER NEVER SMOKER LATEX QUESTIONNAIRE LATEX ALLERGY : HAVE YOU EVER DEVELOPED ANY TYPE OF REACTION AFTER HANDLING LATEX PRODUCTS SUCH RUBBER GLOVES, CONDOMS, DIAPHRAGMS, BALLOONS, SOCKS, OR UNDERWEAR?NO LATEX ALLERGY : HAVE YOU EVER DEVELOPED ANY TYPE OF REACTION DURING OR AFTER DENTAL APPOINTMENT, VAGINAL/RECTAL EXAMINATION, SURGICAL PROCEDURE, OR ANY OTHER EXPOSURE?NO LATEX RISK : HAVE YOU EVER HAD ANY DIFFICULTY BREATHING OR HIVES AFTER EATING OR HANDLING ANY FRUITS, OR VEGETABLES; SUCH KIWI, BANANAS, STONE FRUITS, OR CHESTNUTSNO LATEX RISK : DO YOU HAVE A PREVIOUS PERSONAL HISTORY OF MORE THAN NINE SURGERIES, SPINA BIFIDA, OR REPEATED CATHERIZATIONS? NO LATEX RISK : ARE YOU FREQUENTLY EXPOSED TO LATEX PRODUCTS IN YOUR OCCUPATION?NO DATE ASKED : 04/24/2021 ALCOHOL USE: NO. BMI CARE GOAL FOLLOW-UP ABOVE NORMAL BMI FOLLOW-UPGIVING ENCOURAGEMENT TO EXERCISE ALCOHOL SCREENING DID YOU HAVE A DRINK CONTAINING ALCOHOL IN THE PAST YEAR?NO POINTS0 INTERPRETATIONNEGATIVE RECREATIONAL DRUG USE DENIES. CAFFEINE 2/DAY COFFEE, PLUS HERBAL TEA. SEXUAL HX HAD SEX IN THE LAST 12 MONTHS (VAGINAL, ORAL, OR ANAL)?NO HAVE YOU EVER HAD AN STD?NO HIV / HEP-C SCREENING HIV TEST OFFERED TO PATIENT:NO HEP-C TEST OFFERED TO PATIENT:NO MORAVIAN MORAVIAN NO SABIANISM BELIEFS THAT WOULD IMPACT HEALTH CARE. LANGUAGE LANGUAGES SPOKEN:URDU EDUCATION LEVEL OF EDUCATION:HIGH SCHOOL LEARNING BARRIERS / SPECIAL NEEDS CHANGE FROM LAST VISIT?NO BARRIERS TO LEARNING?NO HEARING IMPAIRED?YES : SOMETIMES VISION IMPAIRED?YES :CORRECTIVE LENSES COGNITIVELY IMPAIRED?NO READINESS TO LEARN?YES LEARNING PREFERENCES?YES :TAPES/VIDEOS, BOOKLETS, HANDOUTS LEARNING CAPABILITIES PRESENT?YES EMOTIONAL BARRIERS?NO SPECIAL DEVICES?YES :CANE, WALKER UNIVERSAL BANKER NEEDED?NO DOMESTIC VIOLENCE DENIES SEXUAL, PHYSICAL ABUSE, VERBAL ABUSE. 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 DIET: NO HX EATING DISORDERS, LOW FAT, LOW CHOLESTEROL, NO ADDED SALT. EXERCISE: DAILY, WALKS, FARMS, GARDENS. MARITAL STATUS: (SPOUSE NOW RETIRED). OTHERS AT HOME: SPOUSE. TODAY'S VISITNOTES PATIENT DESCRIBES PAIN :ACHING, HAVE IT ALL THE TIME FROM 0-10, WHAT LEVEL IS YOUR PAIN TODAY?2 PRECIPITATING FACTORS ACTIVITIES, WALKING ALLEVIATING FACTORS SITTING - HAS THE PATIENT BEEN EDUCATED REGARDING HIS/HER PLAN OF CARE?YES HAS THE PATIENT BEEN EDUCATED REGARDING PAIN, THE RISK FOR PAIN, THE IMPORTANCE OF EFFECTIVE PAIN MANAGEMENT, AND THE PAIN ASSESSMENT PROCESS?YES ADVANCE DIRECTIVE ADVANCE DIRECTIVE DISCUSSED WITH PATIENT:YES HCP - JENNI SOLIS (DAUGHTER) REVIEW OF SYSTEMS CONSTITUTIONAL: ANY RECENT FEVER NO . CHILLS NO . WEIGHT CHANGE OF UNKNOWN REASONS NO . GASTROENTEROLOGY: NEW UNEXPLAINABLE CHANGES IN BOWEL CONTROL NO . CONSTIPATION NO . GENITOURINARY: ANY NEW CHANGE IN BLADDER CONTROL? NO . NEUROLOGY: NEW ONSET DIZZINESS OR NEUROLOGICAL CHANGES NOT MENTIONED NO . NEW NUMBNESS OR PAIN PATTERNS NOT MENTIONED AND PERTINENT TO TODAY'S VISIT NO . CARDIOLOGY: NEW CHEST PRESSURE NO . PATIENT DENIES NO . RESPIRATORY: UNEXPLAINABLE COUGH NO . NEW SHORTNESS OF BREATH NO . VITAL SIGNS WT 175 LBS, HT 62.25 IN, BMI 31.75 INDEX, BP 136/63 MM HG, HR 78 /MIN, RR 18 /MIN, TEMP 98.1 F, OXYGEN SAT % 98%, SAFE IN ENV? (Y/N) YEST.ANA PAULA IYER. EXAMINATION GENERAL EXAMINATION: GENERALNO ACUTE DISTRESS, WELL NOURISHED AND HYDRATED. PSYCHAPPROPRIATE MOOD AND AFFECT . LUNGS:CLEAR TO AUSCULTATION BILATERALLY, NO WHEEZES, RHONCHI, RALES. HEART:NO MURMURS, REGULAR RATE AND RHYTHM. ASSESSMENTS LUMBAR FACET ARTHROPATHY - M46.96 (PRIMARY), RISK: (NULL) TREATMENT LUMBAR FACET ARTHROPATHY REFILL GABAPENTIN CAPSULE, 300 MG, 1 CAPSULE, ORALLY, THREE TIMES PER DAY, 30 DAYS, 90, REFILLS 2 NOTES: 80-YEAR-OLD FEMALE IN FOR CHRONIC PAIN FOLLOW-UP. GIVEN PRESENTING SYMPTOMS RECOMMEND CONTINUATION OF CURRENT MEDICATION REGIMEN WITH FOLLOW-UP IN 3 MONTHS. PATIENT HAS EXPRESSED UNDERSTANDING OF AND WAS IN AGREEMENT WITH TREATMENT PLAN. GIVEN TIME TO ASK QUESTIONS AND EXPRESS CONCERNS. PROCEDURE CODES FA211 ESTABILISHED PATIENT [facility] FACILITY CHARGE DISPOSITION & COMMUNICATION FOLLOW UP 3 MONTHS (REASON: LOW BACK PAIN ) ELECTRONICALLY SIGNED BY NEGRITA CHAVEZ ON 04/25/2021 AT 08:39 AM EDT DISCLAIMER : THIS IS A VISIT SUMMARY EXTRACTED FROM THE [employer] CHART. IT IS NOT A COPY OF THE [employer] PROGRESS NOTE. JEREMIAH
== END ==
LOC: M PAIN 14:00
PROVIDERS: ATTEND Family Medicine
DX: M46.96 Unspecified inflammatory spondylopathy, lumbar region (principal); G89.29 Other chronic pain; E03.9 Hypothyroidism, unspecified; K21.9 Gastro-esophageal reflux disease without esophagitis; Z86.59 Personal history of other mental and behavioral disorders; Z88.8 Allergy status to other drugs, medicaments and biological substances; Z79.899 Other long term (current) drug therapy

== ENCOUNTER → 2021-06-27 | Outpatient (CLI) | payer MEDICARE ==
[2021-06-27 13:55] LABS: ALBUMIN 3.6 GM/DL (3.2-5.2); ALT/SGPT 25 U/L (12-78); BILIRUBIN,TOTAL 0.3 MG/DL (0.2-1.0); BLOOD UREA NITROGEN 21 MG/DL (7-18); CARBON DIOXIDE LEVEL 29 MEQ/L (21-32); CHLORIDE LEVEL 104 MEQ/L (98-107); CREATININE FOR GFR 0.79 MG/DL (0.55-1.30); FREE T4 0.91 NG/DL (0.76-1.46); GLOMERULAR FILTRATION RATE > 60.0 (>39); GLUCOSE, FASTING 98 MG/DL (70-100); POTASSIUM SERUM 4.3 MEQ/L (3.5-5.1); SODIUM LEVEL 138 MEQ/L (136-145); TOTAL PROTEIN 7.2 GM/DL (6.4-8.2)
[2021-06-27 14:36] LABS: TOTAL 25(OH) VITAMIN D 35.4 NG/ML (30.0-100.0)
== END ==
LOC: M PLALAB 10:17
PROVIDERS: ATTEND Nurse Practitioner Family
DX: E03.9 Hypothyroidism, unspecified (principal); I10 Essential (primary) hypertension; E55.9 Vitamin D deficiency, unspecified; Z79.899 Other long term (current) drug therapy

== ENCOUNTER → 2021-07-25 | Outpatient (CLI) | payer MEDICARE | LOC: M PAIN 14:00 | PROVIDERS: ATTEND Anesthesiology | DX: M46.96 Unspecified inflammatory spondylopathy, lumbar region (principal); E78.5 Hyperlipidemia, unspecified; E03.9 Hypothyroidism, unspecified; J30.9 Allergic rhinitis, unspecified; K21.9 Gastro-esophageal reflux disease without esophagitis; F41.9 Anxiety disorder, unspecified; M85.88 Other specified disorders of bone density and structure, other site; M17.0 Bilateral primary osteoarthritis of knee; Z79.899 Other long term (current) drug therapy; Z88.8 Allergy status to other drugs, medicaments and biological substances ==

== ENCOUNTER → 2021-11-03 | Outpatient (CLI) | payer MEDICARE ==
[~2021-11-03] MED LIST changes: -CYMB60CA3 PO; +CYMB60CA4 PO; +LOSA50TA28 PO; -LOSA50TA88 PO
== END ==
LOC: M PLALAB 14:27
PROVIDERS: ATTEND Nurse Practitioner Family
DX: E03.9 Hypothyroidism, unspecified (principal); I10 Essential (primary) hypertension; E78.2 Mixed hyperlipidemia; E55.9 Vitamin D deficiency, unspecified; Z79.899 Other long term (current) drug therapy
CPT/HCPCS: 36415; 80053; 80061; 82306; 83036; 84439; 84443; 85025; G0463

== ENCOUNTER → 2022-05-21 | Outpatient (REF) | payer MEDICARE ==
[~2022-05-21] MED LIST changes: -D31000TA2 PO; -GLUCTAB6 PO; +GLUCTAB7 PO; +VITA100093 PO
[2022-05-21 17:03] LABS: BASO % 0.8 % (0.0-1.0); EOS # 0.2 10^3/uL (0.0-0.5); EOS % 3.2 % (0.0-3.0); HEMATOCRIT 40.2 % (36.0-47.0); HEMOGLOBIN 12.7 g/dl (12.0-15.5); LYMPH # 1.1 10^3/uL (1.5-5.0); LYMPH % 22.5 % (24.0-44.0); MEAN CORPUSCULAR HEMOGLOBIN 28.5 pg (27.0-33.0); MEAN CORPUSCULAR HGB CONC 31.6 g/dl (32.0-36.5); MEAN CORPUSCULAR VOLUME 90.3 fl (80.0-96.0); MONO # 0.3 10^3/uL (0.0-0.8); MONO % 7.2 % (2.0-8.0); NEUTROPHILS # 3.1 10^3/uL (1.5-8.5); NEUTROPHILS % 65.9 % (36.0-66.0); PLATELET COUNT, AUTOMATED 255 10^3/uL (150-450); RED BLOOD COUNT 4.45 10^6/uL (4.00-5.40); WHITE BLOOD COUNT 4.7 10^3/uL (4.0-10.0)
[2022-05-21 17:46] LABS: HEMOGLOBIN A1c 5.9 %
[2022-05-21 17:55] LABS: ALBUMIN 3.6 GM/DL (3.2-5.2); ALT/SGPT 22 U/L (12-78); BILIRUBIN,TOTAL 0.5 MG/DL (0.2-1.0); BLOOD UREA NITROGEN 13 MG/DL (7-18); CARBON DIOXIDE LEVEL 29 MEQ/L (21-32); CHLORIDE LEVEL 104 MEQ/L (98-107); CHOLESTEROL LEVEL 243 MG/DL (<200); CHOLESTEROL RISK RATIO 5.282 (<5); CREATININE FOR GFR 0.76 MG/DL (0.55-1.30); FREE T4 1.02 NG/DL (0.76-1.46); GLOMERULAR FILTRATION RATE > 60.0 (>32); GLUCOSE, FASTING 112 MG/DL (70-100); HDL CHOLESTEROL 46 MG/DL (>40); LDL CHOLESTEROL 163 MG/DL (<100); NON-HDL-C 197 MG/DL; POTASSIUM SERUM 4.1 MEQ/L (3.5-5.1); SODIUM LEVEL 137 MEQ/L (136-145); TOTAL PROTEIN 7.2 GM/DL (6.4-8.2); TRIGLYCERIDES LEVEL 172 MG/DL (<150)
[2022-05-21 18:26] LABS: TOTAL 25(OH) VITAMIN D 30.6 NG/ML (30.0-100.0)
== END ==
LOC: M SFHCADAM 09:21
PROVIDERS: ATTEND Nurse Practitioner Family
DX: E03.9 Hypothyroidism, unspecified (principal); I10 Essential (primary) hypertension; E78.2 Mixed hyperlipidemia; E55.9 Vitamin D deficiency, unspecified; R73.01 Impaired fasting glucose

== ENCOUNTER → 2023-04-12 | Outpatient (REF) | payer MEDICARE ==
[2023-04-12 13:25] LABS: ALBUMIN 3.5 G/DL (3.2-5.2); ALKALINE PHOSPHATASE 92 U/L (46-116); ALT/SGPT 13 U/L (7.0-40); AST/SGOT 17 U/L (<34); BILIRUBIN,TOTAL 0.4 MG/DL (0.3-1.2); BLOOD UREA NITROGEN 14 MG/DL (9-23); CALCIUM LEVEL 8.4 MG/DL (8.3-10.6); CARBON DIOXIDE LEVEL 27 MMOL/L (20-31); CHLORIDE LEVEL 105 MMOL/L (98-107); CHOLESTEROL LEVEL 157 MG/DL (<200); CHOLESTEROL RISK RATIO 3.45 (<5); CREATININE FOR GFR 0.68 MG/DL (0.55-1.30); GLOMERULAR FILTRATION RATE > 60.0 (>32); GLUCOSE, FASTING 101 MG/DL (74-106); HDL CHOLESTEROL 45.4 MG/DL (>40); LDL CHOLESTEROL 94.6 MG/DL (<100); NON-HDL-C 111.6 MG/DL; POTASSIUM SERUM 3.6 MMOL/L (3.5-5.1); SODIUM LEVEL 140 MMOL/L (136-145); TOTAL PROTEIN 6.6 G/DL (5.7-8.2); TRIGLYCERIDES LEVEL 85 MG/DL (<150)
[2023-04-12 13:27] LABS: BASO % 0.5 % (0.0-1.0); EOS # 0.1 10^3/uL (0.0-0.5); EOS % 1.8 % (0.0-3.0); HEMATOCRIT 37.9 % (36.0-47.0); HEMOGLOBIN 12.2 g/dl (12.0-15.5); LYMPH # 1.4 10^3/uL (1.5-5.0); MEAN CORPUSCULAR HGB CONC 32.2 g/dl (32.0-36.5); MONO # 0.5 10^3/uL (0.0-0.8); MONO % 8.2 % (2.0-8.0); NEUTROPHILS # 3.6 10^3/uL (1.5-8.5); NEUTROPHILS % 64.3 % (36.0-66.0); PLATELET COUNT, AUTOMATED 242 10^3/uL (150-450); RED BLOOD COUNT 4.21 10^6/uL (4.00-5.40); WHITE BLOOD COUNT 5.6 10^3/uL (4.0-10.0)
[2023-04-12 13:29] LABS: FREE T4 0.96 NG/DL (0.89-1.76)
[2023-04-12 13:30] LABS: THYROID STIMULATING HORMONE 3.304 uIU/ML (0.55-4.78)
[2023-04-12 13:31] LABS: TOTAL 25(OH) VITAMIN D 34.2 NG/ML (20.0-100.0)
[2023-04-12 14:49] LABS: HEMOGLOBIN A1c 5.9 % (4.0-6.0)
== END ==
LOC: M SFHCADAM 09:30
PROVIDERS: ATTEND Nurse Practitioner Family
DX: E03.9 Hypothyroidism, unspecified (principal); E78.2 Mixed hyperlipidemia; E55.9 Vitamin D deficiency, unspecified; R73.01 Impaired fasting glucose

== ENCOUNTER → 2023-04-28 | Outpatient (CLI) | payer OTHER ==
[2023-04-28 14:17] LABS: ALBUMIN 3.7 G/DL (3.2-5.2); ALKALINE PHOSPHATASE 88 U/L (46-116); ALT/SGPT < 9 U/L (7.0-40); AST/SGOT < 8 U/L (<34); BILIRUBIN,TOTAL 0.4 MG/DL (0.3-1.2); BLOOD UREA NITROGEN 15 MG/DL (9-23); CALCIUM LEVEL 8.6 MG/DL (8.3-10.6); CARBON DIOXIDE LEVEL 26 MMOL/L (20-31); CHLORIDE LEVEL 106 MMOL/L (98-107); CREATININE FOR GFR 0.62 MG/DL (0.55-1.30); GLOMERULAR FILTRATION RATE > 60.0 (>32); GLUCOSE, FASTING 105 MG/DL (74-106); HEMOGLOBIN 12.5 g/dl (12.0-15.5); MEAN CORPUSCULAR HEMOGLOBIN 29.2 pg (27.0-33.0); MEAN CORPUSCULAR HGB CONC 32.1 g/dl (32.0-36.5); MEAN CORPUSCULAR VOLUME 91.1 fl (80.0-96.0); PLATELET COUNT, AUTOMATED 221 10^3/uL (150-450); POTASSIUM SERUM 3.9 MMOL/L (3.5-5.1); RED BLOOD COUNT 4.28 10^6/uL (4.00-5.40); SODIUM LEVEL 139 MMOL/L (136-145); TOTAL PROTEIN 6.8 G/DL (5.7-8.2); WHITE BLOOD COUNT 5.8 10^3/uL (4.0-10.0)
[2023-04-28 14:30] LABS: INR 0.91; PROTHROMBIN TIME 12.4 SECONDS (12.5-14.5)
[2023-04-28 14:37] LABS: ERYTHROCYTE SEDIMENTATION RATE 32 mm/hr (0-30)
== END ==
LOC: M RAD 10:02
PROVIDERS: ATTEND Orthopaedic Surgery
DX: Z01.818 Encounter for other preprocedural examination (principal); M17.0 Bilateral primary osteoarthritis of knee; Z79.01 Long term (current) use of anticoagulants

== ENCOUNTER → 2023-05-21 | Outpatient (CLI) | payer OTHER ==
[2023-05-21 14:28] LABS: BASO % 0.6 % (0.0-1.0); EOS # 0.1 10^3/uL (0.0-0.5); EOS % 1.4 % (0.0-3.0); HEMATOCRIT 38.1 % (36.0-47.0); HEMOGLOBIN 12.4 g/dl (12.0-15.5); LYMPH # 1.7 10^3/uL (1.5-5.0); LYMPH % 22.9 % (24.0-44.0); MEAN CORPUSCULAR HEMOGLOBIN 29.3 pg (27.0-33.0); MEAN CORPUSCULAR HGB CONC 32.5 g/dl (32.0-36.5); MEAN CORPUSCULAR VOLUME 90.1 fl (80.0-96.0); MONO # 0.6 10^3/uL (0.0-0.8); MONO % 7.8 % (2.0-8.0); NEUTROPHILS # 4.8 10^3/uL (1.5-8.5); PLATELET COUNT, AUTOMATED 232 10^3/uL (150-450); RED BLOOD COUNT 4.23 10^6/uL (4.00-5.40); WHITE BLOOD COUNT 7.2 10^3/uL (4.0-10.0)
[2023-05-21 14:43] LABS: ALBUMIN 3.8 G/DL (3.2-5.2); ALKALINE PHOSPHATASE 95 U/L (46-116); ALT/SGPT 15 U/L (7.0-40); AST/SGOT 13 U/L (<34); BILIRUBIN,TOTAL 0.4 MG/DL (0.3-1.2); BLOOD UREA NITROGEN 20 MG/DL (9-23); CARBON DIOXIDE LEVEL 28 MMOL/L (20-31); CHLORIDE LEVEL 103 MMOL/L (98-107); CREATININE FOR GFR 0.69 MG/DL (0.55-1.30); GLOMERULAR FILTRATION RATE > 60.0 (>32); GLUCOSE, FASTING 80 MG/DL (74-106); POTASSIUM SERUM 4.7 MMOL/L (3.5-5.1); SODIUM LEVEL 138 MMOL/L (136-145)
== END ==
LOC: M PLALAB 11:25
PROVIDERS: ATTEND Nurse Practitioner Family
DX: I10 Essential (primary) hypertension (principal)

== ENCOUNTER → 2023-06-09 | Outpatient (CLI) | payer OTHER ==
[~2023-06-09] MED LIST changes: +DICL100G10 TOP; -DICL1GEL3 TOP
== END ==
LOC: M WHC 09:58
PROVIDERS: ATTEND Physician Assistant Surgical
DX: M25.461 Effusion, right knee (principal); I82.491 Acute embolism and thrombosis of other specified deep vein of right lower extremity

== ENCOUNTER → 2023-06-09 | Outpatient (CLI) | payer OTHER ==
[2023-06-09 13:11] LABS: BASO % 0.3 % (0.0-1.0); EOS # 0.1 10^3/uL (0.0-0.5); EOS % 1.4 % (0.0-3.0); HEMATOCRIT 29.5 % (36.0-47.0); HEMOGLOBIN 9.8 g/dl (12.0-15.5); LYMPH # 1.4 10^3/uL (1.5-5.0); LYMPH % 16.2 % (24.0-44.0); MEAN CORPUSCULAR HEMOGLOBIN 29.8 pg (27.0-33.0); MEAN CORPUSCULAR HGB CONC 33.2 g/dl (32.0-36.5); MEAN CORPUSCULAR VOLUME 89.7 fl (80.0-96.0); MONO % 11.4 % (2.0-8.0); NEUTROPHILS # 6.1 10^3/uL (1.5-8.5); NEUTROPHILS % 70.4 % (36.0-66.0); PLATELET COUNT, AUTOMATED 316 10^3/uL (150-450); RED BLOOD COUNT 3.29 10^6/uL (4.00-5.40); WHITE BLOOD COUNT 8.6 10^3/uL (4.0-10.0)
[2023-06-09 13:33] LABS: ERYTHROCYTE SEDIMENTATION RATE 108 mm/hr (0-30)
== END ==
LOC: M PLALAB 11:11
PROVIDERS: ATTEND Physician Assistant Surgical
DX: M25.461 Effusion, right knee (principal)

== ENCOUNTER → 2024-01-03 | Outpatient (REF) | payer OTHER ==
[~2024-01-03] MED LIST changes: -BIOT50004 PO; +BIOT5CAP8 PO
[2024-01-03 14:19] LABS: HEMOGLOBIN A1c 5.8 % (4.0-6.0)
[2024-01-03 14:26] LABS: BASO % 0.7 % (0.0-1.0); EOS # 0.1 10^3/uL (0.0-0.5); EOS % 2.4 % (0.0-3.0); HEMATOCRIT 40.7 % (36.0-47.0); HEMOGLOBIN 13.2 g/dl (12.0-15.5); LYMPH # 1.5 10^3/uL (1.5-5.0); LYMPH % 26.8 % (24.0-44.0); MEAN CORPUSCULAR HEMOGLOBIN 29.3 pg (27.0-33.0); MEAN CORPUSCULAR HGB CONC 32.4 g/dl (32.0-36.5); MEAN CORPUSCULAR VOLUME 90.4 fl (80.0-96.0); MONO # 0.4 10^3/uL (0.0-0.8); MONO % 6.7 % (2.0-8.0); NEUTROPHILS # 3.5 10^3/uL (1.5-8.5); NEUTROPHILS % 63.4 % (36.0-66.0); PLATELET COUNT, AUTOMATED 263 10^3/uL (150-450); WHITE BLOOD COUNT 5.5 10^3/uL (4.0-10.0)
[2024-01-03 14:42] LABS: ALBUMIN 4.1 G/DL (3.2-5.2); ALKALINE PHOSPHATASE 98 U/L (46-116); ALT/SGPT 19 U/L (7.0-40); AST/SGOT 18 U/L (<34); BILIRUBIN,TOTAL 0.5 MG/DL (0.3-1.2); BLOOD UREA NITROGEN 14 MG/DL (9-23); CALCIUM LEVEL 9.1 MG/DL (8.3-10.6); CARBON DIOXIDE LEVEL 28 MMOL/L (20-31); CHLORIDE LEVEL 101 MMOL/L (98-107); CHOLESTEROL LEVEL 188 MG/DL (<200); CHOLESTEROL RISK RATIO 4.14 (<5); CREATININE FOR GFR 0.68 MG/DL (0.55-1.30); FREE T4 1.06 NG/DL (0.89-1.76); GLOMERULAR FILTRATION RATE > 60.0 (>32); GLUCOSE, FASTING 100 MG/DL (74-106); HDL CHOLESTEROL 45.4 MG/DL (>40); LDL CHOLESTEROL 102.2 MG/DL (<100); NON-HDL-C 142.6 MG/DL; POTASSIUM SERUM 4.3 MMOL/L (3.5-5.1); SODIUM LEVEL 134 MMOL/L (136-145); THYROID STIMULATING HORMONE 2.484 uIU/ML (0.55-4.78); TOTAL PROTEIN 7.4 G/DL (5.7-8.2); TRIGLYCERIDES LEVEL 202 MG/DL (<150)
[2024-01-03 14:44] LABS: TOTAL 25(OH) VITAMIN D 35.8 NG/ML (20.0-100.0)
== END ==
LOC: M SFHCADAM 11:21
PROVIDERS: ATTEND Nurse Practitioner Family
DX: E78.2 Mixed hyperlipidemia (principal); E03.9 Hypothyroidism, unspecified; I10 Essential (primary) hypertension; E55.9 Vitamin D deficiency, unspecified; R73.01 Impaired fasting glucose

== ENCOUNTER → 2024-02-10 | Outpatient (CLI) | payer OTHER | LOC: M WHC 15:20 | PROVIDERS: ATTEND Nurse Practitioner Family | DX: Z12.31 Encounter for screening mammogram for malignant neoplasm of breast (principal) ==

== ENCOUNTER → 2024-05-01 | Outpatient (CLI) | payer OTHER ==
[~2024-05-01] MED LIST changes: -GARL500C2 PO; +GARL500C6 PO
[2024-05-01 15:46] LABS: ALBUMIN 3.9 G/DL (3.2-5.2); ALKALINE PHOSPHATASE 93 U/L (46-116); ALT/SGPT 16 U/L (7.0-40); AST/SGOT 14 U/L (<34); BILIRUBIN,TOTAL 0.5 MG/DL (0.3-1.2); BLOOD UREA NITROGEN 20 MG/DL (9-23); CALCIUM LEVEL 9.3 MG/DL (8.3-10.6); CARBON DIOXIDE LEVEL 28 MMOL/L (20-31); CHLORIDE LEVEL 106 MMOL/L (98-107); CHOLESTEROL LEVEL 163 MG/DL (<200); GLOMERULAR FILTRATION RATE > 60.0 (>32); GLUCOSE, FASTING 95 MG/DL (74-106); HDL CHOLESTEROL 33.9 MG/DL (>40); LDL CHOLESTEROL 104.7 MG/DL (<100); NON-HDL-C 129.1 MG/DL; POTASSIUM SERUM 4.3 MMOL/L (3.5-5.1); SODIUM LEVEL 139 MMOL/L (136-145); TRIGLYCERIDES LEVEL 122 MG/DL (<150)
[2024-05-01 15:49] LABS: FREE T4 1.04 NG/DL (0.89-1.76); THYROID STIMULATING HORMONE 1.825 uIU/ML (0.55-4.78)
[2024-05-01 15:50] LABS: BASO % 0.4 % (0.0-1.0); EOS # 0.1 10^3/uL (0.0-0.5); EOS % 1.7 % (0.0-3.0); HEMATOCRIT 37.7 % (36.0-47.0); HEMOGLOBIN 12.2 g/dl (12.0-15.5); LYMPH # 1.8 10^3/uL (1.5-5.0); LYMPH % 22.7 % (24.0-44.0); MEAN CORPUSCULAR HEMOGLOBIN 29.3 pg (27.0-33.0); MEAN CORPUSCULAR HGB CONC 32.4 g/dl (32.0-36.5); MEAN CORPUSCULAR VOLUME 90.6 fl (80.0-96.0); MONO # 0.5 10^3/uL (0.0-0.8); MONO % 6.1 % (2.0-8.0); NEUTROPHILS # 5.3 10^3/uL (1.5-8.5); NEUTROPHILS % 68.8 % (36.0-66.0); PLATELET COUNT, AUTOMATED 236 10^3/uL (150-450); RED BLOOD COUNT 4.16 10^6/uL (4.00-5.40); WHITE BLOOD COUNT 7.8 10^3/uL (4.0-10.0)
[2024-05-01 15:55] LABS: HEMOGLOBIN A1c 5.9 % (4.0-6.0)
== END ==
LOC: M PLALAB 12:32
PROVIDERS: ATTEND Nurse Practitioner Family
DX: E03.9 Hypothyroidism, unspecified (principal); I10 Essential (primary) hypertension; E78.2 Mixed hyperlipidemia; R73.01 Impaired fasting glucose

== ENCOUNTER → 2024-05-03 | Outpatient (REF) | payer OTHER | LOC: M SFHCPLAZ 08:29 | PROVIDERS: ATTEND Physician Assistant Medical | DX: R30.0 Dysuria (principal) ==

== ENCOUNTER → 2024-05-26 | Outpatient (REF) | payer OTHER ==
[2024-05-26 15:44] LABS: APPEARANCE, URINE HAZY (CLEAR); BACTERIA, URINE AUTO NEGATIVE (NEGATIVE); BILIRUBIN, URINE AUTO NEGATIVE (NEGATIVE); BLOOD, URINE BLOOD NEGATIVE (NEGATIVE); COLOR, URINE YELLOW (YELLOW); GLUCOSE, URINE (UA) AUTO NEGATIVE (NEGATIVE); KETONE, URINE AUTO NEGATIVE (NEGATIVE); LEUKOCYTE ESTERASE, URINE AUTO 2+ (NEGATIVE); MUCUS, URINE SMALL (NEGATIVE); NITRITE, URINE AUTO NEGATIVE (NEGATIVE); PROTEIN, URINE AUTO NEGATIVE (NEGATIVE); RBC, URINE AUTO 2 /HPF (0-3); SPECIFIC GRAVITY URINE AUTO 1.017 (1.002-1.035); SQUAMOUS EPITHELIAL CELL UR AU 3 /HPF (0-6); UROBILINOGEN, URINE AUTO 0.2 mg/dL (0.0-2.0); WBC, URINE AUTO TNTC /HPF (0-3)
== END ==
LOC: M SFHCPLAZ 15:01
PROVIDERS: ATTEND Nurse Practitioner Family
DX: R30.0 Dysuria (principal)

== ENCOUNTER → 2024-06-27 | Outpatient (CLI) | payer OTHER ==
[2024-06-27 14:18] LABS: BASO % 0.2 % (0.0-1.0); EOS # 0.1 10^3/uL (0.0-0.5); EOS % 1.5 % (0.0-3.0); HEMATOCRIT 37.5 % (36.0-47.0); HEMOGLOBIN 12.1 g/dl (12.0-15.5); LYMPH # 1.4 10^3/uL (1.5-5.0); LYMPH % 17.6 % (24.0-44.0); MEAN CORPUSCULAR HEMOGLOBIN 29.9 pg (27.0-33.0); MEAN CORPUSCULAR HGB CONC 32.3 g/dl (32.0-36.5); MEAN CORPUSCULAR VOLUME 92.6 fl (80.0-96.0); MONO # 0.6 10^3/uL (0.0-0.8); MONO % 7.4 % (2.0-8.0); NEUTROPHILS # 5.9 10^3/uL (1.5-8.5); NEUTROPHILS % 73.1 % (36.0-66.0); PLATELET COUNT, AUTOMATED 244 10^3/uL (150-450); RED BLOOD COUNT 4.05 10^6/uL (4.00-5.40); WHITE BLOOD COUNT 8.1 10^3/uL (4.0-10.0)
[2024-06-27 14:30] LABS: ALBUMIN 3.8 G/DL (3.2-5.2); ALKALINE PHOSPHATASE 99 U/L (46-116); ALT/SGPT 18 U/L (7.0-40); AST/SGOT 16 U/L (<34); BILIRUBIN,TOTAL 0.3 MG/DL (0.3-1.2); BLOOD UREA NITROGEN 17 MG/DL (9-23); CALCIUM LEVEL 9.7 MG/DL (8.3-10.6); CARBON DIOXIDE LEVEL 28 MMOL/L (20-31); CHLORIDE LEVEL 105 MMOL/L (98-107); CREATININE FOR GFR 0.72 MG/DL (0.55-1.30); GLOMERULAR FILTRATION RATE > 60.0 (>32); GLUCOSE, FASTING 100 MG/DL (74-106); POTASSIUM SERUM 4.4 MMOL/L (3.5-5.1); SODIUM LEVEL 138 MMOL/L (136-145); TOTAL PROTEIN 7.2 G/DL (5.7-8.2)
[2024-06-27 14:34] LABS: THYROID STIMULATING HORMONE 3.668 uIU/ML (0.55-4.78)
== END ==
LOC: M PLALAB 09:39
PROVIDERS: ATTEND Nurse Practitioner Family
DX: R10.30 Lower abdominal pain, unspecified (principal); R30.0 Dysuria; K59.00 Constipation, unspecified

== ENCOUNTER → 2024-07-12 | Outpatient (CLI) | payer OTHER | LOC: M RAD 10:50 | PROVIDERS: ATTEND Nurse Practitioner Family | DX: R10.2 Pelvic and perineal pain (principal); R30.0 Dysuria; N85.8 Other specified noninflammatory disorders of uterus ==

== ENCOUNTER → 2024-09-07 | Outpatient (REF) | payer OTHER ==
[~2024-09-07] MED LIST changes: +GABA-1172 PO; -GABA-282 PO
[2024-09-07 13:20] LABS: BASO % 0.6 % (0.0-1.0); EOS # 0.2 10^3/uL (0.0-0.5); EOS % 2.8 % (0.0-3.0); HEMATOCRIT 36.9 % (36.0-47.0); HEMOGLOBIN 12.1 g/dl (12.0-15.5); LYMPH # 1.7 10^3/uL (1.5-5.0); LYMPH % 26.2 % (24.0-44.0); MEAN CORPUSCULAR HEMOGLOBIN 29.4 pg (27.0-33.0); MEAN CORPUSCULAR HGB CONC 32.8 g/dl (32.0-36.5); MEAN CORPUSCULAR VOLUME 89.6 fl (80.0-96.0); MONO # 0.5 10^3/uL (0.0-0.8); MONO % 8.2 % (2.0-8.0); NEUTROPHILS # 3.9 10^3/uL (1.5-8.5); NEUTROPHILS % 61.9 % (36.0-66.0); PLATELET COUNT, AUTOMATED 267 10^3/uL (150-450); RED BLOOD COUNT 4.12 10^6/uL (4.00-5.40); WHITE BLOOD COUNT 6.3 10^3/uL (4.0-10.0)
[2024-09-07 13:21] LABS: THYROID STIMULATING HORMONE 2.691 uIU/ML (0.55-4.78)
[2024-09-07 13:23] LABS: ALKALINE PHOSPHATASE 97 U/L (35-104); ALT/SGPT 22 U/L (7.0-40); AST/SGOT 21 U/L (<34); BILIRUBIN,TOTAL 0.5 MG/DL (0.3-1.2); BLOOD UREA NITROGEN 17 MG/DL (9-23); CALCIUM LEVEL 9.7 MG/DL (8.3-10.6); CARBON DIOXIDE LEVEL 28 MMOL/L (20-31); CHLORIDE LEVEL 101 MMOL/L (98-107); CHOLESTEROL LEVEL 165 MG/DL (<200); CHOLESTEROL RISK RATIO 3.61 (<5); CREATININE FOR GFR 0.81 MG/DL (0.55-1.30); FREE T4 1.29 NG/DL (0.89-1.76); GLOMERULAR FILTRATION RATE > 60.0 (>32); GLUCOSE, FASTING 94 MG/DL (74-106); HDL CHOLESTEROL 45.6 MG/DL (>40); LDL CHOLESTEROL 102.2 MG/DL (<100); NON-HDL-C 119.4 MG/DL; POTASSIUM SERUM 4.3 MMOL/L (3.5-5.1); SODIUM LEVEL 135 MMOL/L (136-145); TOTAL PROTEIN 7.3 G/DL (5.7-8.2); TRIGLYCERIDES LEVEL 86 MG/DL (<150)
[2024-09-07 13:37] LABS: HEMOGLOBIN A1c 5.9 % (4.0-6.0)
== END ==
LOC: M SFHCADAM 09:43
PROVIDERS: ATTEND Nurse Practitioner Family
DX: E03.9 Hypothyroidism, unspecified (principal); I10 Essential (primary) hypertension; E78.2 Mixed hyperlipidemia; E55.9 Vitamin D deficiency, unspecified; R73.01 Impaired fasting glucose

== ENCOUNTER → 2024-12-06 | Outpatient (CLI) | payer MEDICARE | LOC: M PLALAB 09:22 | PROVIDERS: ATTEND Obstetrics & Gynecology | DX: R19.00 Intra-abdominal and pelvic swelling, mass and lump, unspecified site (principal); R10.2 Pelvic and perineal pain; D39.0 Neoplasm of uncertain behavior of uterus ==

== ENCOUNTER → 2025-01-09 | Outpatient (CLI) | payer MEDICARE | LOC: M WHC 10:06 | PROVIDERS: ATTEND Obstetrics & Gynecology | DX: D25.1 Intramural leiomyoma of uterus (principal) ==

== ENCOUNTER → 2025-07-11 | Outpatient (CLI) | payer MEDICARE ==
[~2025-07-11] MED LIST changes: +BIOT5CAP9 PO; -BIOTCAP PO; +DULO60CA35 PO; +OLOP5DRO17 OU
[2025-07-11 11:29] LABS: BASO # 0.1 10^3/uL (0.0-0.2); BASO % 0.7 % (0.0-1.0); EOS # 0.1 10^3/uL (0.0-0.5); EOS % 1.3 % (0.0-3.0); LYMPH # 1.4 10^3/uL (1.5-5.0); LYMPH % 20.5 % (24.0-44.0); MONO # 0.5 10^3/uL (0.0-0.8); MONO % 6.9 % (2.0-8.0); NEUTROPHILS # 4.9 10^3/uL (1.5-8.5); NEUTROPHILS % 70.3 % (36.0-66.0); PLATELET COUNT, AUTOMATED 282 10^3/uL (150-450)
[2025-07-11 12:01] LABS: CALCIUM LEVEL 9.5 MG/DL (8.3-10.6); CARBON DIOXIDE LEVEL 30.0 MMOL/L (20-31); CHLORIDE LEVEL 100.0 MMOL/L (98-107); CREATININE FOR GFR 0.91 MG/DL (0.55-1.30); GLOMERULAR FILTRATION RATE 62.6 (>32); POTASSIUM SERUM 4.7 MMOL/L (3.5-5.1); SODIUM LEVEL 135.0 MMOL/L (136-145)
== END ==
LOC: M PLALAB 09:13
PROVIDERS: ATTEND Student in an Organized Health Care Education/Training Program
DX: Z01.818 Encounter for other preprocedural examination (principal); R01.1 Cardiac murmur, unspecified; R06.02 Shortness of breath

== ENCOUNTER → 2025-09-12 | Outpatient (CLI) | payer MEDICARE | LOC: M CARPUL 08:36 | PROVIDERS: ATTEND Student in an Organized Health Care Education/Training Program | DX: R01.1 Cardiac murmur, unspecified (principal) ==

== ENCOUNTER → 2025-10-22 | Outpatient (REF) | payer MEDICARE ==
[2025-10-22 14:06] LABS: BASO # 0.0 10^3/uL (0.0-0.2); BASO % 0.7 % (0.0-1.0); EOS # 0.1 10^3/uL (0.0-0.5); EOS % 1.6 % (0.0-3.0); LYMPH # 1.5 10^3/uL (1.5-5.0); LYMPH % 23.7 % (24.0-44.0); MONO # 0.5 10^3/uL (0.0-0.8); MONO % 7.4 % (2.0-8.0); NEUTROPHILS # 4.1 10^3/uL (1.5-8.5); NEUTROPHILS % 66.4 % (36.0-66.0); PLATELET COUNT, AUTOMATED 274 10^3/uL (150-450)
[2025-10-22 14:18] LABS: ESTIMATED AVERAGE GLUCOSE 120.0 MG/DL (60-110)
[2025-10-22 14:30] LABS: ALT/SGPT 18.0 U/L (7.0-40); AST/SGOT 23.0 U/L (<34); CALCIUM LEVEL 9.4 MG/DL (8.3-10.6); CARBON DIOXIDE LEVEL 28.0 MMOL/L (20-31); CHLORIDE LEVEL 98.0 MMOL/L (98-107); CHOLESTEROL LEVEL 151.0 MG/DL (<200); CHOLESTEROL RISK RATIO 2.94 (<5); CREATININE FOR GFR 0.76 MG/DL (0.55-1.30); GLOMERULAR FILTRATION RATE 77.2 (>32); LDL CHOLESTEROL 79.6 MG/DL (<100); NON-HDL-C 99.8 MG/DL; POTASSIUM SERUM 4.5 MMOL/L (3.5-5.1); SODIUM LEVEL 132.0 MMOL/L (136-145); TRIGLYCERIDES LEVEL 101.0 MG/DL (<150)
[2025-10-22 14:32] LABS: FREE T4 1.28 NG/DL (0.89-1.76)
== END ==
LOC: M LABDRWAD 13:04
PROVIDERS: ATTEND Nurse Practitioner Family
DX: E55.9 Vitamin D deficiency, unspecified (principal); R73.01 Impaired fasting glucose; E03.9 Hypothyroidism, unspecified; E78.2 Mixed hyperlipidemia; I10 Essential (primary) hypertension